=== PATIENT | female | born 1950 | race American Indian/Alaskan Native ===

== ENCOUNTER 2016-07-11 23:58 | Emergency (ER) | payer MEDICARE, MEDICAID ==
[2016-07-12 00:01] VITALS: BMI 36.9
--- NOTE | 2016-07-12 00:16 | ED PDOC ---
Arrival/HPI - General Chief Complaint: Upper Extremity Problem/Injury Time Seen by Provider: 07/12/16 00:09 Historian: Patient - History of Present Illness Narrative History of Present Illness (Text): 07/12/16 00:16 Analilia Parks is a 65 year old female, whose past medical history includes hypertension, asthma, and COPD, who presents to the ED complaining of left arm tingling. Patient states she has been experiencing elevated blood pressure recently and developed a tingling sensation radiating down her left arm with associated chest discomfort. Patient denies any fever, chills, shortness of breath, nausea, vomiting, diarrhea, urinary symptoms, back pain, neck pain, headache, dizziness, vision changes, focal neurological deficits, or any other complaints. Time/Duration: Other (yesterday) Symptom Onset: Gradual Symptom Course: Unchanged Activities at Onset: Rest, Light Context: Home Past Medical History - Provider Review Nursing Documentation Reviewed: Yes - Infectious Disease Hx of Infectious Diseases: None - Tetanus Immunization Tetanus Immunization: Unknown - Cardiac Hx Pacemaker: No - Pulmonary Hx Respiratory Disorders: Yes Hx Asthma: Yes Hx Chronic Obstructive Pulmonary Disease (COPD): Yes - Neurological Hx Paralysis: No - HEENT Hx HEENT Disorder: No Hx Difficulty Chewing: No - Renal Hx Renal Disorder: No - Endocrine/Metabolic Hx Endocrine Disorders: No - Hematological/Oncological Hx Blood Transfusion Reaction: No - Integumentary Hx Dermatological Disorder: No - Musculoskeletal/Rheumatological Hx Musculoskeletal Disorders: Yes - Gastrointestinal Hx Gastrointestinal Disorders: Yes Hx Diverticulitis: Yes Hx Gastritis: Yes Hx Gastroesophageal Reflux: Yes - Genitourinary/Gynecological Hx Genitourinary Disorders: No - Psychiatric Hx Psychophysiologic Disorder: No Hx Emotional Abuse: No Hx Physical Abuse: No Hx Substance Use: No - Past Surgical History Past Surgical History: No Previous - Surgical History Hx Dilation and Curettage: Yes Other/Comment: D&C - Anesthesia Hx Anesthesia Reactions: No Hx Malignant Hyperthermia: No - Suicidal Assessment Feels Threatened In Home Enviroment: No Family/Social History - Physician Review Nursing Documentation Reviewed: Yes Family/Social History: No Known Family HX Smoking Status: Former Smoker Hx Alcohol Use: No Hx Substance Use: No Hx Substance Use Treatment: No Allergies/Home Meds Allergies/Adverse Reactions: Allergies Penicillins Allergy (Verified 07/05/16 12:35) RASH peanuts Allergy (Uncoded 07/05/16 12:35) ITCHING Home Medications: Home Meds Medication Instructions Recorded Confirmed Budesonide/Formoterol Fumarate 11 puff IH BID 08/27/11 07/12/16 [Symbicort 80-4.5 Mcg Inhaler] Montelukast Sodium [Singulair] 10 mg PO HS 05/22/15 07/12/16 Olmesartan Medoxomil [Benicar] 40 mg PO DAILY 05/22/15 07/12/16 Albuterol Sulfate [Proair Hfa] 1 inh INH PRN PRN 02/14/16 07/12/16 Beclomethasone Dipropionate [Qvar] 2 inh INH BID 02/14/16 07/12/16 Review of Systems - Physician Review All systems were reviewed & negative as marked: Yes - Review of Systems Constitutional: Normal. absent: Fevers Eyes: Normal ENT: Normal Respiratory: Normal. absent: SOB, Cough Cardiovascular: Chest Pain, Other (+elevated blood pressure) Gastrointestinal: Normal. absent: Abdominal Pain, Diarrhea, Nausea, Vomiting Genitourinary Female: Normal. absent: Dysuria, Frequency, Hematuria, Urine Output Changes Musculoskeletal: Other (+tingling in left arm). absent: Back Pain, Neck Pain Skin: Normal. absent: Rash Neurological: Normal. absent: Headache, Dizziness Endocrine: Normal Hemo/Lymphatic: Normal Psychiatric: Normal Physical Exam Vital Signs Reviewed: Yes Vital Signs Temp Pulse Resp BP Pulse Ox 07/12/16 02:56 97.6 F 88 17 151/67 H 96 07/12/16 01:02 97.9 F 77 16 136/77 97 Temperature: Afebrile Blood Pressure: Normal Pulse: Regular Respiratory Rate: Normal Appearance: Positive for: Well-Appearing, Non-Toxic, Comfortable Pain Distress: None Mental Status: Positive for: Alert and Oriented X 3 - Systems Exam Head: Present: Atraumatic, Normocephalic Pupils: Present: PERRL Extroacular Muscles: Present: EOMI Conjunctiva: Present: Normal Mouth: Present: Moist Mucous Membranes Neck: Present: Normal Range of Motion Respiratory/Chest: Present: Clear to Auscultation, Good Air Exchange. No: Respiratory Distress, Accessory Muscle Use Cardiovascular: Present: Regular Rate and Rhythm, Normal S1, S2. No: Murmurs Abdomen: Present: Normal Bowel Sounds. No: Tenderness, Distention, Peritoneal Signs Back: Present: Normal Inspection Upper Extremity: Present: Normal Inspection. No: Cyanosis, Edema Lower Extremity: Present: Normal Inspection. No: Edema Neurological: Present: GCS=15, CN II-XII Intact, Speech Normal Skin: Present: Warm, Dry, Normal Color. No: Rashes Psychiatric: Present: Alert, Oriented x 3, Normal Insight, Normal Concentration Medical Decision Making ED Course and Treatment: 07/12/16 00:16 Impression: 65 year old female complaining of left arm tingling sensation, elevated blood pressure, and chest discomfort since yesterday. Plan: -- CT Head w/o contrast -- EKG -- Chest X-ray -- Labs, cardiac enzymes -- UA -- Reassess and disposition Prior Visits: Notes and results from previous visits were reviewed. Progress Notes: Reviewed EKG, NSR at [address]-segment elevations or depressions, no T-wave inversions, normal intervals. 07/12/16 01:53 Reviewed radiology, CT Head shows: 1. Nonspecific white matter changes. Acute infarction may be CT occult within first 24 hours. If a focal deficit persists, consider followup CT or MRI for further evaluation. 2. Incidental/non-acute findings are described above. 07/12/16 02:44 Reviewed labs, no acute change from baseline. Reviewed Chest X-ray, shows no active disease. 07/12/16 03:19 On re-evaluation, the patient feels better and is in no acute distress. I have discussed the results and plan with the patient, who expresses understanding. Patient in agreement with plan to discharged home. Patient is stable for discharge. Patient was instructed to follow up with physician/research assistant member/ clinic in 1-2 days or return if symptoms worsen or new concerning symptoms arise. - Lab Interpretations Lab Results: 07/12/16 00:24 07/12/16 00:24 Lab Results 07/12/16 02:35: Urine Color Yellow, Urine Appearance Clear, Urine pH 6.0, Ur Specific [place] >= 1.030, Urine Protein Negative, Urine Glucose (UA) Negative, Urine Ketones Negative, Urine Blood Negative, Urine Nitrate Negative, Urine Bilirubin Negative, Urine Urobilinogen 0.2, Ur Leukocyte Esterase Negative 07/12/16 00:24: WBC 10.0, RBC 4.39, Hgb 13.0, Hct 40.0, MCV 91.1, MCH 29.6, MCHC 32.5, RDW 13.3, Plt Count 376, MPV 10.1, Gran % 53.3, Lymph % (Auto) 39.0 H , [place] % (Auto) 4.4, Eos % (Auto) 2.9, Baso % (Auto) 0.4, Gran # 5.35, Lymph # 3.9 H, [place] # 0.4, Eos # 0.3, Baso # 0.04, Sodium 139, Potassium 3.9, Chloride 103, Carbon Dioxide 27, Anion Gap 13, BUN 12, Creatinine 0.6, Est GFR ( Amer) > 60, Est GFR (Non-Af Amer) > 60, Random Glucose 112 H, Calcium 9.5, Magnesium 1.8, Total Bilirubin 0.6, AST 39, ALT 21, Alkaline Phosphatase 126, Lactate Dehydrogenase 667, Total Creatine Kinase 150, Troponin I < 0.01, Total Protein 7.6, Albumin 4.1, Globulin 3.5, Albumin/Globulin Ratio 1.2 I have reviewed the lab results: Yes - RAD Interpretation Narrative RAD Interpretations (Text): CT Head shows: Brain: No intracranial hemorrhage. No mass. Minimal decreased attenuation within periventricular white matter. No definite edema. Ventricles: No hydrocephalus. Bones/joints: No acute fracture. Soft tissues: Unremarkable. Sinuses: No acute sinusitis. Mastoid air cells: No mastoid effusion. Orbits: Unremarkable as visualized. IMPRESSION: 1. Nonspecific white matter changes. Acute infarction may be CT occult within first 24 hours. If a focal deficit persists, consider followup CT or MRI for further evaluation. 2. Incidental/non-acute findings are described above. Radiology Orders: 07/12/16 00:16 HEAD W/O CONTRAST [CT] Stat CHEST ONE VIEW [RAD] Stat Switchboard And Control Room Operator: ED Physician, Radiologist - EKG Interpretation Interpreted by ED Physician: Yes Type: 12 lead EKG MIRA Risk Score for UA/NSTEMI - MIRA Risk Score Age > 64: NO 3 or more CAD Risk Factors: NO Known CAD (Stenosis greater than 50%): NO Aspirin use in past 7 days: NO Severe Angina: NO EKG ST changes greater than 0.5mm: NO Positive Cardiac Marker: NO MIRA Score: 0 % risk at 14 days of: all cause mortality, new or recurrent IN, or severe recurrent ischemia requiring urgen revascularization: 5% - Scribe Statement The provider has reviewed the documentation as recorded by the Sheila Walter Provider Attestation: All medical record entries made by the Maureenibjaelyn were at my direction and personally dictated by me. I have reviewed the chart and agree that the record accurately reflects my personal performance of the history, physical exam, medical decision making, and the department course for this patient. I have also personally directed, reviewed, and agree with the discharge instructions and disposition. Disposition/Present on Arrival - Present on Arrival History of DVT/PE: No History of Uncontrolled Diabetes: No Urinary Catheter: No History of Decub. Ulcer: No History Surgical Site Infection Following: None - Disposition Diagnosis: Chest pain Disposition: HOME/ ROUTINE Patient Problems: Current Active Problems Problem Status Diagnosed Chest pain Acute Discharge Instructions (ExitCare): Chest Pain (ED) Referrals: Meet Gaviria MD [Primary Care Provider] - Follow up with primary
[2016-07-12 00:32] LABS: ADD MANUAL DIFF? NO
[2016-07-12 00:46] LABS: ALB/GLOB RATIO 1.2 (1.1-1.8); ALKALINE PHOSPHATASE 126 U/L (38-133); ALT/SGPT 21 U/L (7-56); AST/SGOT 39 U/L (15-39); BILIRUBIN,TOTAL 0.6 mg/dL (0.2-1.3); BLOOD UREA NITROGEN 12 mg/dL (7-21); CALCIUM 9.5 mg/dL (8.4-10.5); CARBON DIOXIDE 27 mmol/L (21-33); CHLORIDE 103 mmol/L (98-107); GFR AFRICAN-AMERICAN > 60; GLUCOSE,RANDOM 112 mg/dL (70-110); MAGNESIUM 1.8 mg/dL (1.7-2.2); POTASSIUM 3.9 mmol/L (3.6-5.0); SODIUM 139 mmol/L (132-148); TOTAL PROTEIN 7.6 g/dL (5.8-8.3)
[2016-07-12 00:48] LABS: BASO # 0.04 K/mm3 (0.0-2.0); BASO % 0.4 % (0.0-3.0); EOS # 0.3 (0.0-0.7); EOS % 2.9 % (1.5-5.0); GRAN # 5.35 (1.4-6.5); GRAN % 53.3 % (50.0-68.0); LYMPH # 3.9 (1.2-3.4); MEAN CELL VOLUME 91.1 fL (80.0-105.0); MEAN CORPUSCULAR HEMOGLOBIN 29.6 pg (25.0-35.0); MEAN CORPUSCULAR HGB CONC 32.5 g/dl (31.0-37.0); MEAN PLATELET VOLUME 10.1 fl (7.0-11.0); MONO # 0.4 (0.1-0.6); MONO % 4.4 % (1.0-6.0); PLATELET COUNT 376 10^3/uL (120.0-450.0); RED CELL DISTRIBUTION WIDTH 13.3 % (11.5-14.5)
[2016-07-12 00:58] LABS: TROPONIN I < 0.01 ng/mL
--- NOTE | 2016-07-12 01:05 | CT ---
EXAM: CT Head Without Intravenous Contrast. CLINICAL HISTORY: 65 years old, female; Signs and symptoms; Other: HTN TECHNIQUE: Axial computed tomography images of the head/brain without intravenous contrast. This CT exam was performed using one or more of the following dose reduction techniques: automated exposure control, adjustment of the mA and/or kV according to patient size, and/or use of iterative reconstruction technique. COMPARISON: No relevant prior studies available. FINDINGS: Brain: No intracranial hemorrhage. No mass. Minimal decreased attenuation within periventricular white matter. No definite edema. Ventricles: No hydrocephalus. Bones/joints: No acute fracture. Soft tissues: Unremarkable. Sinuses: No acute sinusitis. Mastoid air cells: No mastoid effusion. Orbits: Unremarkable as visualized. IMPRESSION: 1. Nonspecific white matter changes. Acute infarction may be CT occult within first 24 hours. If a focal deficit persists, consider followup CT or MRI for further evaluation. 2. Incidental/non-acute findings are described above.
[2016-07-12 02:57] VITALS: BP 151/67; PULSE 88; RESP 17; TEMP 97.6; O2SAT 96
[2016-07-12 02:59] LABS: URINE BILIRUBIN NEGATIVE (NEGATIVE); URINE BLOOD NEGATIVE (NEGATIVE); URINE GLUCOSE (UA) NEGATIVE (NEGATIVE); URINE KETONE NEGATIVE (NEGATIVE); URINE LEUKOCYTE ESTERASE NEGATIVE Leu/uL (NEGATIVE); URINE PROTEIN NEGATIVE mg/dL (<30 mg/dL); URINE UROBILINOGEN 0.2 E.U./dL (<1 E.U./dL)
[2016-07-12 03:07] LABS: URINE APPEARANCE CLEAR (CLEAR); URINE COLOR YELLOW (YELLOW)
--- NOTE | 2016-07-12 09:10 | RAD ---
HISTORY: pain COMPARISON: Chest x-ray performed 06/16/15 TECHNIQUE: Chest, one view. FINDINGS: Examination limited by habitus. LUNGS: No focal consolidation. Please note that chest x-ray has limited sensitivity for the detection of pulmonary masses. PLEURA: No significant pleural effusion identified. No definite pneumothorax . CARDIOVASCULAR: Heart size appears borderline enlarged. Ectatic aorta. OSSEOUS STRUCTURES: Degenerative changes. VISUALIZED UPPER ABDOMEN: Unremarkable. OTHER FINDINGS: None. IMPRESSION: No focal consolidation, significant pleural effusion, or definite pneumothorax identified.
--- NOTE | 2016-07-12 10:04 | CARD ---
APPROVED REPORT EKG Measurement Heart [id number] <Conclusion> Normal sinus rhythm Normal ECG No change
== END 2016-07-12 03:25 | disposition home or self-care (01) ==
LOC: ED 23:58
DX: R07.9 Chest pain, unspecified (principal); I10 Essential (primary) hypertension

== ENCOUNTER 2016-07-15 08:12 | Day surgery (SDC) | payer MEDICARE, MEDICAID ==
[2016-07-07 12:55] VITALS: BMI 36.9
[2016-07-15] MEDS ORDERED: Propofol 10 mg/ml Inj (20 ML) ONE (08:54)
[2016-07-15 11:24] VITALS: BP 141/69; PULSE 79; RESP 18; TEMP 97.7; O2SAT 98
== END 2016-07-15 11:51 | disposition home or self-care (01) ==
LOC: ENDO 08:12
PROVIDERS: ATTEND Specialist
DX: D12.3 Benign neoplasm of transverse colon (principal); K57.30 Diverticulosis of large intestine without perforation or abscess without bleeding; K64.8 Other hemorrhoids; K59.00 Constipation, unspecified
CPT/HCPCS: 45385; 88305; J2001; J2704; J7040

== ENCOUNTER 2016-09-14 09:42 | Observation (INO) | payer MEDICARE, MEDICAID ==
[2016-09-14 09:49] VITALS: BMI 35.5
[2016-09-14 10:16] VITALS: TEMP 98.4
[2016-09-14] MEDS ORDERED: Albuterol-Ipratrop 3 mg / 0.5 (3 ml) UD IH STA ×2 (10:24→11:54)
[2016-09-14 10:30] LABS: ADD MANUAL DIFF? NO
--- NOTE | 2016-09-14 10:30 | ED PDOC ---
Arrival/HPI - General Chief Complaint: Shortness Of Breath Time Seen by Provider: 09/14/16 09:46 Historian: Patient - History of Present Illness Narrative History of Present Illness (Text): 09/14/16 10:33 A 65 year old female, whose past medical history includes hypertension and asthma, presents to the emergency department complaining of two days duration of shortness of breath and chest pain. Patient notes developed left sided chest pain and describes it as pressure. Patient is unsure if symptoms are related to her asthma as she also reports some wheezing, non-productive cough, and needing her inhaler more frequently. She reports the pain is worse with inspiration. She reports that she does not think it is her heart because she can exercise for 30 minutes without any worsening of the pain. Patient denies weakness, nausea, vomiting, diaphoresis or any other complaints at this time. PMD: Dr. Gaviria 09/14/16 17:43 Time/Duration: Other (2 days) Symptom Onset: Sudden Symptom Course: Unchanged Quality: Pressure Activities at Onset: Other (with inspiration) Context: Home Past Medical History - Provider Review Nursing Documentation Reviewed: Yes - Infectious Disease Hx of Infectious Diseases: None - Tetanus Immunization Tetanus Immunization: Unknown - Cardiac Hx Hypertension: Yes Hx Pacemaker: No - Pulmonary Hx Respiratory Disorders: Yes Hx Asthma: Yes Hx Chronic Obstructive Pulmonary Disease (COPD): Yes - Neurological Hx Paralysis: No - HEENT Hx HEENT Disorder: No Hx Difficulty Chewing: No - Renal Hx Renal Disorder: No - Endocrine/Metabolic Hx Endocrine Disorders: No - Hematological/Oncological Hx Blood Transfusion Reaction: No - Integumentary Hx Dermatological Disorder: No - Musculoskeletal/Rheumatological Hx Musculoskeletal Disorders: Yes - Gastrointestinal Hx Gastrointestinal Disorders: Yes Hx Diverticulitis: Yes Hx Gastritis: Yes Hx Gastroesophageal Reflux: Yes - Genitourinary/Gynecological Hx Genitourinary Disorders: No - Psychiatric Hx Psychophysiologic Disorder: No Hx Emotional Abuse: No Hx Physical Abuse: No Hx Substance Use: No - Past Surgical History Past Surgical History: No Previous - Surgical History Hx Dilation and Curettage: Yes Other/Comment: Colonoscopy - Anesthesia Hx Anesthesia Reactions: No Hx Malignant Hyperthermia: No - Suicidal Assessment Feels Threatened In Home Enviroment: No Family/Social History - Physician Review Nursing Documentation Reviewed: Yes Family/Social History: No Known Family HX Smoking Status: Former Smoker Hx Alcohol Use: No Hx Substance Use: No Hx Substance Use Treatment: No Allergies/Home Meds Allergies/Adverse Reactions: Allergies Penicillins Allergy (Verified 09/14/16 09:49) RASH peanuts Allergy (Uncoded 09/14/16 09:49) ITCHING Home Medications: Home Meds Medication Instructions Recorded Confirmed Budesonide/Formoterol Fumarate 2 puff IH BID 08/27/11 09/14/16 [Symbicort 80-4.5 Mcg Inhaler] Montelukast Sodium [Singulair] 10 mg PO HS 05/22/15 09/14/16 Beclomethasone Dipropionate [Qvar] 2 inh INH BID 02/14/16 09/14/16 Albuterol HFA [Ventolin HFA 90 0.09 mg IH DAILY 09/14/16 09/14/16 mcg/actuation (8 g)] amLODIPine [Norvasc] 5 mg PO DAILY 09/14/16 09/14/16 Review of Systems - Review of Systems Constitutional: absent: Other (weakness) Respiratory: SOB, Cough (non productive) Cardiovascular: Chest Pain Gastrointestinal: absent: Nausea, Vomiting Skin: absent: Other (edema) Neurological: absent: Headache Endocrine: absent: Diaphoresis Physical Exam Vital Signs Reviewed: Yes Vital Signs Temp Pulse Resp BP Pulse Ox 09/14/16 17:34 75 18 132/63 97 09/14/16 15:15 79 18 135/65 97 09/14/16 14:51 82 18 137/62 97 09/14/16 13:00 83 19 147/69 99 09/14/16 11:37 77 17 144/65 99 09/14/16 09:43 98.4 F 91 H 18 151/80 H 100 Temperature: Afebrile Blood Pressure: Hypertensive Pulse: Regular Respiratory Rate: Normal Appearance: Positive for: Well-Appearing, Non-Toxic, Comfortable Pain Distress: None Mental Status: Positive for: Alert and Oriented X 3 - Systems Exam Head: Present: Atraumatic, Normocephalic Pupils: Present: PERRL Extroacular Muscles: Present: EOMI Conjunctiva: Present: Normal Mouth: Present: Moist Mucous Membranes Neck: Present: Normal Range of Motion Respiratory/Chest: Present: Clear to Auscultation, Good Air Exchange. No: Respiratory Distress, Accessory Muscle Use Cardiovascular: Present: Regular Rate and Rhythm, Normal S1, S2. No: Murmurs Abdomen: Present: Normal Bowel Sounds. No: Tenderness, Distention, Peritoneal Signs Back: Present: Normal Inspection Upper Extremity: Present: Normal Inspection. No: Cyanosis, Edema Lower Extremity: Present: Normal Inspection. No: Edema Neurological: Present: GCS=15, CN II-XII Intact, Speech Normal Skin: Present: Warm, Dry, Normal Color. No: Rashes Psychiatric: Present: Alert, Oriented x 3, Normal Insight, Normal Concentration Medical Decision Making ED Course and Treatment: 09/14/16 10:27 Impression: Patient is presenting with shortness of breath Differential Diagnosis included but are not limited to: acute coronary syndrome vs. pulmonary embolism vs. asthma Plan: -- chest xray -- labs -- Duoneb -- Reassess and disposition Prior Visits: Notes and results from previous visits were reviewed. Patient last reported to the emergency department on 07/11/16 for evaluation of left arm tingling sensation. Patient was advised to follow up with PMD and discharged. Progress Note: Patient last EKG shows normal sinus rhythm at 96 BPM, no ST changes. 09/14/16 11:10 Cxray negative 09/14/16 11:[address] Gaviria. He agrees that presentation does not seem consistent with cardiac. However, due to her risk factors, he recommends second trop and dc home with follow-up in his office within 2 days (wednesday) 09/14/16 12:54 Patient was placed in ED observation and continuously monitored. Additional duoneb ordered. 09/14/16 14:54 Patient resting comfortably 09/14/16 16:45 Repeat ekg shows NSR at 73bpm with normal intervals and no ST changes 09/14/16 17:19 Repeat trop negative. Patient reports that she feels much better and wants to go home. She was offered prednisone. However, she reports she has prednisone at home and "does not need it." She reports that she knows "when to take it" and this asthma exacerbation is not severe enough. She reports that she will follow-up with PMD and return immediately with any worsening symptoms. - Lab Interpretations Lab Results: 09/14/16 09:50 09/14/16 10:30 Lab Results 09/14/16 10:30: Sodium 142, Potassium 3.7, Chloride 106, Carbon Dioxide 29, Anion Gap 11, BUN 16, Creatinine 0.7, Est GFR ( Amer) > 60, Est GFR (Non- Af Amer) > 60, Random Glucose 82, Calcium 9.5, Total Bilirubin 0.5, AST 29, ALT 38, Alkaline Phosphatase 107, Lactate Dehydrogenase 684, Total Creatine Kinase 188, Troponin I < 0.01, NT-Pro-B Natriuret Pep 17.3, Total Protein 7.2, Albumin 4.0, Globulin 3.3, Albumin/Globulin Ratio 1.2 09/14/16 09:50: D-Dimer, Quantitative 0.48 09/14/16 09:50: WBC 12.4 H D, RBC 4.44, Hgb 13.2, Hct 39.7, MCV 89.4, MCH 29.7, MCHC 33.2, RDW 13.6, Plt Count 366, MPV 9.9, Gran % 67.6, Lymph % (Auto) 26.2, [place] % (Auto) 6.0, Eos % (Auto) 0.1 L, Baso % (Auto) 0.1, Gran # 8.40 H, Lymph # 3.3, [place] # 0.8 H, Eos # 0.0, Baso # 0.01 I have reviewed the lab results: Yes - RAD Interpretation Radiology Orders: 09/14/16 10:24 CHEST PORTABLE [RAD] Stat - Medication Orders Current Medication Orders: Discontinued Medications Albuterol/Ipratropium (Duoneb 3 Mg/0.5 Mg (3 Ml) Ud) 3 ml IH STAT STA Stop: 09/14/16 10:25 Last Admin: 09/14/16 10:32 Dose: 3 ml Albuterol/Ipratropium (Duoneb 3 Mg/0.5 Mg (3 Ml) Ud) 3 ml IH STAT STA Stop: 09/14/16 11:55 Last Admin: 09/14/16 12:00 Dose: 3 ml Prednisone (Prednisone Tab) 60 mg PO STAT STA Stop: 09/14/16 17:16 Last Admin: 09/14/16 17:15 Dose: Not Given Non-Admin Reason: Patient Refused Comments: MD dumont ED OBSERVATION Discharge: Yes Date of observation admission: 09/14/16 Time of observation admission: 10:11 - Observation admission statement Patient is being placed in observation because:: cardiac monitoring, asthma excaerbation, reevaluation of chest pain and monitoring of respirations - Goals of Observation Goals of observation are:: serial troponins and monitoring of asthma, with additional nebulizer treatments as needed - Scribe Statement The provider has reviewed the documentation as recorded by the Scribe Douglas Dolan All medical record entries made by the Scribe were at my direction and personally dictated by me. I have reviewed the chart and agree that the record accurately reflects my personal performance of the history, physical exam, medical decision making, and the department course for this patient. I have also personally directed, reviewed, and agree with the discharge instructions and disposition. Disposition/Present on Arrival - Present on Arrival Any Indicators Present on Arrival: No History of DVT/PE: No History of Uncontrolled Diabetes: No Urinary Catheter: No History of Decub. Ulcer: No History Surgical Site Infection Following: None - Disposition Have Diagnosis and Disposition been Completed?: Yes Diagnosis: Asthma exacerbation Disposition: HOME/ ROUTINE Disposition Time: 11:12 Patient Plan: Discharge Patient Problems: Current Active Problems Problem Status Onset Asthma exacerbation Acute Condition: GOOD
[2016-09-14 10:32] LABS: BASO # 0.01 K/mm3 (0.0-2.0); BASO % 0.1 % (0.0-3.0); EOS % 0.1 % (1.5-5.0); GRAN % 67.6 % (50.0-68.0); HEMATOCRIT 39.7 % (36.0-48.0); LYMPH # 3.3 (1.2-3.4); LYMPH % 26.2 % (22.0-35.0); MEAN CELL VOLUME 89.4 fL (80.0-105.0); MEAN CORPUSCULAR HEMOGLOBIN 29.7 pg (25.0-35.0); MEAN CORPUSCULAR HGB CONC 33.2 g/dl (31.0-37.0); MEAN PLATELET VOLUME 9.9 fl (7.0-11.0); MONO # 0.8 (0.1-0.6); PLATELET COUNT 366 10^3/uL (120.0-450.0); RED CELL DISTRIBUTION WIDTH 13.6 % (11.5-14.5); WHITE BLOOD COUNT 12.4 10^3/ul (4.5-11.0)
[2016-09-14 11:08] LABS: ALB/GLOB RATIO 1.2 (1.1-1.8); ALKALINE PHOSPHATASE 107 U/L (38-133); ALT/SGPT 38 U/L (7-56); AST/SGOT 29 U/L (15-39); BILIRUBIN,TOTAL 0.5 mg/dL (0.2-1.3); BLOOD UREA NITROGEN 16 mg/dL (7-21); CALCIUM 9.5 mg/dL (8.4-10.5); CARBON DIOXIDE 29 mmol/L (21-33); CHLORIDE 106 mmol/L (98-107); GFR AFRICAN-AMERICAN > 60; GLUCOSE,RANDOM 82 mg/dL (70-110); POTASSIUM 3.7 mmol/L (3.6-5.0); SODIUM 142 mmol/L (132-148); TOTAL PROTEIN 7.2 g/dL (5.8-8.3)
--- NOTE | 2016-09-14 11:08 | RAD ---
HISTORY: chest pain COMPARISON: 07/12/2016 FINDINGS: LUNGS: No active pulmonary disease. PLEURA: No significant pleural effusion identified, no pneumothorax apparent. CARDIOVASCULAR: Normal. OSSEOUS STRUCTURES: No significant abnormalities. VISUALIZED UPPER ABDOMEN: Normal. OTHER FINDINGS: None. IMPRESSION: No active disease.
[2016-09-14 11:21] LABS: TROPONIN I < 0.01 ng/mL
[2016-09-14 14:52] VITALS: RESP 18; O2SAT 97
[2016-09-14 16:58] LABS: TROPONIN I < 0.01 ng/mL
[2016-09-14 17:34] VITALS: BP 132/63; PULSE 75
--- NOTE | 2016-09-14 20:26 | CARD ---
APPROVED REPORT EKG Measurement Heart [id number] <Conclusion> Normal sinus rhythm Normal ECG
--- NOTE | 2016-09-15 12:46 | CARD ---
APPROVED REPORT EKG Measurement Heart [id number] <Conclusion> Normal sinus rhythm Normal ECG
== END 2016-09-14 17:13 | disposition home or self-care (01) ==
LOC: ED 09:42 → EROBSV 11:54
PROVIDERS: ADMIT Emergency Medicine; ATTEND Emergency Medicine
DX: J45.901 Unspecified asthma with (acute) exacerbation (principal); I10 Essential (primary) hypertension; Z87.891 Personal history of nicotine dependence
CPT/HCPCS: 71010; 80053; 82550; 83615; 83880; 84484; 85025; 85378; 93005; 99285; G0378

== ENCOUNTER 2016-10-05 06:03 | Emergency (ER) | payer MEDICARE, MEDICAID ==
[2016-10-05 06:09] VITALS: BMI 36.6
--- NOTE | 2016-10-05 06:42 | ED PDOC ---
Arrival/HPI - General Chief Complaint: Chest Pain Time Seen by Provider: 10/05/16 06:10 - History of Present Illness Narrative History of Present Illness (Text): 10/05/16 06:39 65 yo female, hx of htn, asthma, presents with cp. as per pt, started 3 days ago , w/o inciting factor. as per pt, described as a "dull pain". no fevers, no sob , cough, n/v/d, urinary changes, leg swelling, recent travel, surgery, no wheezing Past Medical History - Provider Review Nursing Documentation Reviewed: Yes - Infectious Disease Hx of Infectious Diseases: None - Tetanus Immunization Tetanus Immunization: Unknown - Cardiac Hx Hypertension: Yes Hx Pacemaker: No Other/Comment: leaky valve - Pulmonary Hx Respiratory Disorders: Yes Hx Asthma: Yes Hx Chronic Obstructive Pulmonary Disease (COPD): Yes - Neurological Hx Paralysis: No - HEENT Hx HEENT Disorder: No Hx Difficulty Chewing: No - Renal Hx Renal Disorder: No - Endocrine/Metabolic Hx Endocrine Disorders: No - Hematological/Oncological Hx Blood Transfusion Reaction: No - Integumentary Hx Dermatological Disorder: No - Musculoskeletal/Rheumatological Hx Musculoskeletal Disorders: Yes - Gastrointestinal Hx Gastrointestinal Disorders: Yes Hx Diverticulitis: Yes Hx Gastritis: Yes Hx Gastroesophageal Reflux: Yes - Genitourinary/Gynecological Hx Genitourinary Disorders: No - Psychiatric Hx Psychophysiologic Disorder: No Hx Emotional Abuse: No Hx Physical Abuse: No Hx Substance Use: No - Past Surgical History Past Surgical History: No Previous - Surgical History Hx Dilation and Curettage: Yes Other/Comment: Colonoscopy - Anesthesia Hx Anesthesia: Yes Hx Anesthesia Reactions: No Hx Malignant Hyperthermia: No - Suicidal Assessment Feels Threatened In Home Enviroment: No Family/Social History - Physician Review Nursing Documentation Reviewed: Yes Family/Social History: Unknown Family HX Smoking Status: Former Smoker Hx Alcohol Use: No Hx Substance Use: No Hx Substance Use Treatment: No Allergies/Home Meds Allergies/Adverse Reactions: Allergies peanut Allergy (Verified 10/05/16 06:09) RASH Penicillins Allergy (Verified 10/05/16 06:09) RASH peanuts Allergy (Uncoded 09/14/16 09:49) ITCHING Home Medications: Home Meds Medication Instructions Recorded Confirmed Budesonide/Formoterol Fumarate 2 puff IH BID 08/27/11 10/05/16 [Symbicort 80-4.5 Mcg Inhaler] Montelukast Sodium [Singulair] 10 mg PO HS 05/22/15 10/05/16 Beclomethasone Dipropionate [Qvar] 2 inh INH BID 02/14/16 10/05/16 Albuterol HFA [Ventolin HFA 90 0.09 mg IH DAILY 09/14/16 10/05/16 mcg/actuation (8 g)] amLODIPine [Norvasc] 5 mg PO DAILY 09/14/16 10/05/16 Review of Systems - Review of Systems Constitutional: Normal Eyes: Normal ENT: Normal Respiratory: Normal Cardiovascular: Chest Pain Gastrointestinal: Normal Genitourinary Female: Normal Musculoskeletal: Normal Skin: Normal Neurological: Normal Endocrine: Normal Hemo/Lymphatic: Normal Psychiatric: Normal Physical Exam Vital Signs Temp Pulse Resp BP Pulse Ox 10/05/16 06:10 98.5 F 85 20 123/61 98 Temperature: Afebrile Blood Pressure: Normal Pulse: Regular Respiratory Rate: Normal Appearance: Positive for: Well-Appearing, Non-Toxic, Comfortable Pain Distress: None Mental Status: Positive for: Alert and Oriented X 3 - Systems Exam Head: Present: Atraumatic, Normocephalic Pupils: Present: PERRL Extroacular Muscles: Present: EOMI Conjunctiva: Present: Normal Mouth: Present: Moist Mucous Membranes Neck: Present: Normal Range of Motion Respiratory/Chest: Present: Clear to Auscultation, Good Air Exchange. No: Respiratory Distress, Accessory Muscle Use Cardiovascular: Present: Regular Rate and Rhythm, Normal S1, S2. No: Murmurs Abdomen: Present: Normal Bowel Sounds. No: Tenderness, Distention, Peritoneal Signs Back: Present: Normal Inspection Upper Extremity: Present: Normal Inspection. No: Cyanosis, Edema, Swelling Lower Extremity: Present: Normal Inspection. No: Edema, Tenderness, Swelling Neurological: Present: GCS=15, CN II-XII Intact, Speech Normal Skin: Present: Warm, Dry, Normal Color. No: Rashes Psychiatric: Present: Alert, Oriented x 3, Normal Insight, Normal Concentration Medical Decision Making ED Course and Treatment: 10/05/16 06:41 cp r/o acs - labs imaging pending ekg nsr [address] t wave changes normal intervals - RAD Interpretation Radiology Orders: 10/05/16 06:39 CHEST PORTABLE [RAD] Stat Disposition/Present on Arrival - Present on Arrival History of DVT/PE: No History of Uncontrolled Diabetes: No Urinary Catheter: No History of Decub. Ulcer: No History Surgical Site Infection Following: None - Disposition
--- NOTE | 2016-10-05 07:25 | ED PDOC ---
Physical Exam Vital Signs Reviewed: Yes Vital Signs Temp Pulse Resp BP Pulse Ox 10/05/16 09:54 88 18 142/75 99 10/05/16 07:33 82 18 132/48 L 100 10/05/16 06:10 98.5 F 85 20 123/61 98 Temperature: Afebrile Blood Pressure: Normal Pulse: Regular Respiratory Rate: Normal Medical Decision Making ED Course and Treatment: 10/05/16 07:24 Patient endorsed to me by Dr. Douglas. Pending chest xray and labs. Patient presented with chest pain. She has expressed wishes to be discharged home. 10/05/16 07:41 On re-evaluation, patient reports non-exertional chest pain for the past few days with associated shortness of breath that feels different from prior asthma exacerbations. Exam showed lungs clear to auscultation bilaterally, trace pitting edema bilaterally, no asymmetry or tenderness, otherwise unremarkable. 10/05/16 07:52 EKG shows NSR at [address]-segment elevations, normal intervals. Interpreted by me. 10/05/16 08:58 Patient seen and examined by PMD Dr. Misha Parks, who request Dr. Melo for a cardiac consult for disposition. Report Date : 10/05/2016 09:50:52 Procedure: Chest xray Dictator : Gregor Salas MD IMPRESSION: No active disease. 10/05/16 11:23 seen in the ER by Dr. Melo, states to dc home, and f/u outpatient has been arranged pt in no distress and denies any complaints at this time states she feels comfortable being dc'd home Pt states she understands to return to the ER right away for new or worsening symptoms or for inability to f/u with PMD or specialist as instructed. Patient states that she fully agrees with and understands discharge instructions. States that she agrees with the plan and disposition. Verbalized and repeated discharge instructions and plan. I have given the patient opportunity to ask any additional questions. - Lab Interpretations Lab Results: 10/05/16 07:15 10/05/16 07:15 Lab Results 10/05/16 08:30: Urine Color Yellow, Urine Appearance Clear, Urine pH 6.0, Ur Specific [place] 1.010, Urine Protein Negative, Urine Glucose (UA) Negative, Urine Ketones Negative, Urine Blood Negative, Urine Nitrate Negative, Urine Bilirubin Negative, Urine Urobilinogen 0.2, Ur Leukocyte Esterase Trace H, Urine RBC 0 - 2, Urine WBC 2 - 5, Ur Epithelial Cells 4 - 5, Urine Bacteria Few , Urine Other Fiber 10/05/16 07:15: Sodium 140, Potassium 3.6, Chloride 105, Carbon Dioxide 29, Anion Gap 10, BUN 12, Creatinine 0.6, Est GFR ( Amer) > 60, Est GFR (Non- Af Amer) > 60, Random Glucose 88, Calcium 9.5, Magnesium 1.8, Total Bilirubin 0.4, AST 28, ALT 44, Alkaline Phosphatase 111, Lactate Dehydrogenase 503, Total Creatine Kinase 131, Troponin I < 0.01, Total Protein 6.8, Albumin 3.9, Globulin 2.9, Albumin/Globulin Ratio 1.3 10/05/16 07:15: PT 10.9, INR 1.01, APTT 26.8 10/05/16 07:15: WBC 8.5 D, RBC 4.10, Hgb 12.3, Hct 37.3, MCV 91.0, MCH 30.0, MCHC 33.0, RDW 13.9, Plt Count 308, MPV 9.5, Gran % 51.0, Lymph % (Auto) 40.3 H , [place] % (Auto) 5.9, Eos % (Auto) 2.6, Baso % (Auto) 0.2, Gran # 4.31, Lymph # 3.4, [place] # 0.5, Eos # 0.2, Baso # 0.02 - RAD Interpretation Radiology Orders: 10/05/16 06:39 CHEST PORTABLE [RAD] Stat - Medication Orders Current Medication Orders: Discontinued Medications Aspirin (Aspirin) 325 mg PO STAT STA Stop: 10/05/16 06:42 Last Admin: 10/05/16 07:23 Dose: 325 mg Nitroglycerin (Nitrostat Sl Tab) 0.3 mg SL STAT STA Stop: 10/05/16 07:48 Last Admin: 10/05/16 07:50 Dose: Not Given Non-Admin Reason: Patient Refused Disposition/Present on Arrival - Present on Arrival Any Indicators Present on Arrival: No History of DVT/PE: No History of Uncontrolled Diabetes: No Urinary Catheter: No History of Decub. Ulcer: No History Surgical Site Infection Following: None - Disposition Have Diagnosis and Disposition been Completed?: Yes Diagnosis: Chest pain Disposition: HOME/ ROUTINE Disposition Time: 11:27 Patient Plan: Discharge Condition: GOOD Discharge Instructions (ExitCare): Chest Pain (ED) Additional Instructions: PLEASE RETURN TO THE EMERGENCY DEPARTMENT FOR NEW OR WORSENING SYMPTOMS. RETURN RIGHT AWAY IF YOU CANNOT FOLLOW UP WITH YOUR PRIMARY CARE DOCTOR, CLINIC, OR SPECIALIST IN 1-2 DAYS. Referrals: Meet Gaviria MD [Primary Care Provider] - Follow up with primary Tate Melo MD [Staff Provider] - Follow up with primary Forms: WORK NOTE
[2016-10-05 07:35] VITALS: RESP 18
[2016-10-05 07:36] LABS: ADD MANUAL DIFF? NO
[2016-10-05 07:46] LABS: BASO # 0.02 K/mm3 (0.0-2.0); BASO % 0.2 % (0.0-3.0); EOS # 0.2 (0.0-0.7); EOS % 2.6 % (1.5-5.0); GRAN # 4.31 (1.4-6.5); HEMATOCRIT 37.3 % (36.0-48.0); LYMPH # 3.4 (1.2-3.4); LYMPH % 40.3 % (22.0-35.0); MEAN PLATELET VOLUME 9.5 fl (7.0-11.0); MONO # 0.5 (0.1-0.6); MONO % 5.9 % (1.0-6.0); PLATELET COUNT 308 10^3/uL (120.0-450.0); RED CELL DISTRIBUTION WIDTH 13.9 % (11.5-14.5); WHITE BLOOD COUNT 8.5 10^3/ul (4.5-11.0)
[2016-10-05 07:53] LABS: INR 1.01 (0.93-1.08); PARTIAL THROMBOPLASTIN TIME 26.8 Seconds (23.7-30.8)
[2016-10-05 07:57] LABS: ALB/GLOB RATIO 1.3 (1.1-1.8); ALKALINE PHOSPHATASE 111 U/L (38-133); ALT/SGPT 44 U/L (7-56); AST/SGOT 28 U/L (15-39); BILIRUBIN,TOTAL 0.4 mg/dL (0.2-1.3); BLOOD UREA NITROGEN 12 mg/dL (7-21); CALCIUM 9.5 mg/dL (8.4-10.5); CARBON DIOXIDE 29 mmol/L (21-33); CHLORIDE 105 mmol/L (98-107); GFR AFRICAN-AMERICAN > 60; GLUCOSE,RANDOM 88 mg/dL (70-110); MAGNESIUM 1.8 mg/dL (1.7-2.2); POTASSIUM 3.6 mmol/L (3.6-5.0); SODIUM 140 mmol/L (132-148); TOTAL PROTEIN 6.8 g/dL (5.8-8.3)
[2016-10-05 08:08] LABS: TROPONIN I < 0.01 ng/mL
[2016-10-05 09:05] LABS: URINE BILIRUBIN NEGATIVE (NEGATIVE); URINE BLOOD NEGATIVE (NEGATIVE); URINE GLUCOSE (UA) NEGATIVE (NEGATIVE); URINE KETONE NEGATIVE (NEGATIVE); URINE LEUKOCYTE ESTERASE TRACE Leu/uL (NEGATIVE); URINE PROTEIN NEGATIVE mg/dL (<30 mg/dL); URINE UROBILINOGEN 0.2 E.U./dL (<1 E.U./dL)
[2016-10-05 09:11] LABS: URINE APPEARANCE CLEAR (CLEAR); URINE COLOR YELLOW (YELLOW)
[2016-10-05 09:26] LABS: URINE BACTERIA FEW (NEG); URINE RBC 0 - 2 /hpf (0-2)
--- NOTE | 2016-10-05 09:52 | RAD ---
HISTORY: cp COMPARISON: 09/14/2016 FINDINGS: LUNGS: No active pulmonary disease. PLEURA: No significant pleural effusion identified, no pneumothorax apparent. CARDIOVASCULAR: Normal. OSSEOUS STRUCTURES: No significant abnormalities. VISUALIZED UPPER ABDOMEN: Normal. OTHER FINDINGS: None. IMPRESSION: No active disease.
[2016-10-05 11:55] VITALS: BP 132/77; PULSE 80; TEMP 98; O2SAT 98
--- NOTE | 2016-10-05 15:05 | CARD ---
APPROVED REPORT EKG Measurement Heart [id number] <Conclusion> Normal sinus rhythm Normal ECG
--- NOTE | 2016-10-05 16:24 | CON ---
DATE: 10/05/2016 HISTORY OF PRESENT ILLNESS: The patient is a 65-year-old woman who presented with a fluttering of he r chest. The patient is free of cardiac disease in the past. She suffers from hypertension, obesity, and has a history of asthma, in which she is on multiple medi cations including bronchodilators and steroids. Negative diabetes mellitus. SOCIAL HISTORY: Negative smoker. The patient has recently lost 40 pounds, but remains overweight. REVIEW OF SYSTEMS: A 14-point is reviewed in detail. No cardiac symptomatology is noted. PHYSICAL EXAMINATION: VITAL SIGNS: Blood pressure is 142/75, heart rate is in the 80s, normal sinus rhythm. NECK: Negative JVD. LUNGS: Without rales. HEART: Revealed S1, S2. EXTREMITIES: Without edema. EKG shows normal sinus rhythm with no acute changes. LABORATORIES: Hemoglobin is 12.3. Chemistries: Troponin is negative x 1. IMPRESSION: 1. Palpitations. 2. Atypical chest pain. 3. Asthma. 4. Hypertension, which is exacerbated by her steroids. 5. Obesity. Given these findings, from a cardiac perspective, the patient can be discharged. We will arrange for an outpatient stress test and echocardiogram as well as outpatient followup. Tate Melo MD cc: [id number] TT: 10/05/2016 16:24:34 Confirmation # [id number] Dictation # [id number]
--- NOTE | 2016-10-05 21:48 | CON ---
DATE: 10/05/2016 HISTORY OF PRESENT ILLNESS: A 65-year-old black female with a history of asthma, hypertension. The patient had been in the usual state of health when she developed some chest palpitations and chest di scomfort, came to the ER because of persistent chest symptoms. The patient was seen in consultation by Dr. Tate Melo in the ER and able to be discharged home in improved condition to follow up as an o utpatient for a stress test. The patient's troponins were negative. Laboratory data was unremarkabl e. Chest x-ray was normal. The patient was seen and evaluated by Dr. Melo. She did have some ectop y in the ER. The patient will be send for an outpatient stress test and echocardiogram and followup. PHYSICAL EXAMINATION: GENERAL: A well-developed, well-nourished, slightly obese black female in no apparent distress. HEENT: Essentially normal. HEART: Regular sinus rhythm with ectopy. CHEST: Clear to auscultation and percussion. EXTREMITIES: Without cyanosis, clubbing or edema. ABDOMEN: Obese but benign. IMPRESSION: To discharge home to follow up with Dr. Tate Melo for a stress test and echo. Meet Gaviria MD cc: [id number] TT: 10/05/2016 21:48:06 Confirmation # [id number] Dictation # [id number] marlo
== END 2016-10-05 12:03 | disposition home or self-care (01) ==
LOC: ED 06:03
DX: R07.9 Chest pain, unspecified (principal); Z87.891 Personal history of nicotine dependence; I10 Essential (primary) hypertension

== ENCOUNTER 2017-01-13 10:20 | Emergency (ER) | payer MEDICARE, MEDICAID ==
[2017-01-13 10:20] VITALS: BMI 36.6
--- NOTE | 2017-01-13 10:41 | ED PDOC ---
Arrival/HPI - General Time Seen by Provider: 01/13/17 10:39 - History of Present Illness Narrative History of Present Illness (Text): 01/13/17 10:51 66yo female with a hx of asthma and htn, presents with 1 week duration of retrosternal chest burning. 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 Pt states she has been taking tums and nexium with little relief. Pt states this is also accompanied by mild shortness of breath which feels different from her asthma symptoms. No back pain, no f/c, no other complaints. Past Medical History - Provider Review Nursing Documentation Reviewed: Yes - Infectious Disease Hx of Infectious Diseases: None - Tetanus Immunization Tetanus Immunization: Unknown - Cardiac Hx Angina: (chest pain) Hx Hypertension: Yes - Pulmonary Hx Asthma: Yes - Neurological Hx Paralysis: No - HEENT Hx HEENT Disorder: No Hx Difficulty Chewing: No - Renal Hx Renal Disorder: No - Endocrine/Metabolic Hx Endocrine Disorders: No - Hematological/Oncological Hx Blood Transfusion Reaction: No - Integumentary Hx Dermatological Disorder: No - Musculoskeletal/Rheumatological Hx Musculoskeletal Disorders: Yes - Gastrointestinal Hx Gastrointestinal Disorders: Yes Hx Diverticulitis: Yes Hx Gastritis: Yes Hx Gastroesophageal Reflux: Yes - Genitourinary/Gynecological Hx Genitourinary Disorders: No - Psychiatric Hx Psychophysiologic Disorder: No Hx Emotional Abuse: No Hx Physical Abuse: No Hx Substance Use: No - Past Surgical History Past Surgical History: No Previous - Surgical History Hx Dilation and Curettage: Yes Other/Comment: Colonoscopy - Anesthesia Hx Anesthesia: Yes Hx Anesthesia Reactions: No Hx Malignant Hyperthermia: No - Suicidal Assessment Feels Threatened In Home Enviroment: No Family/Social History Family/Social History: Unknown Family HX Smoking Status: Former Smoker Hx Alcohol Use: No Hx Substance Use: No Hx Substance Use Treatment: No Allergies/Home Meds Allergies/Adverse Reactions: Allergies peanut Allergy (Verified 01/13/17 10:45) RASH Penicillins Allergy (Verified 01/13/17 10:45) RASH peanuts Allergy (Uncoded 01/13/17 10:45) ITCHING Home Medications: Home Meds Medication Instructions Recorded Confirmed Budesonide/Formoterol Fumarate 2 puff IH BID 08/27/11 01/13/17 [Symbicort 80-4.5 Mcg Inhaler] Montelukast Sodium [Singulair] 10 mg PO HS 05/22/15 01/13/17 Beclomethasone Dipropionate [Qvar] 2 inh INH BID 02/14/16 01/13/17 Albuterol HFA [Ventolin HFA 90 0.09 mg IH QID 09/14/16 01/13/17 mcg/actuation (8 g)] Linaclotide [Linzess] 145 mcg PO 2XW 10/16/16 01/13/17 Valsartan [Diovan] 320 mg PO DAILY 01/13/17 01/13/17 Physical Exam - Physical Exam Narrative Physical Exam (Text): 01/13/17 10:56 - Review of Systems Constitutional: Normal. absent: Fatigue, Weight Change, Fevers Eyes: Normal ENT: denies sore throat, denies tristhmus Respiratory: SOB. absent: Cough, Sputum Cardiovascular: chest burning. absent: Palpitations, Syncope Gastrointestinal: Normal. absent: Abdominal Pain, Diarrhea, Nausea, Vomiting Genitourinary: Normal. absent: Dysuria, Frequency, Hematuria, vaginal bleeding Musculoskeletal: Normal. absent: Arthralgias, Back Pain, Neck Pain Skin: no rashes, no erythema Neurological: absent: Focal Weakness Endocrine: Normal Hemo/Lymphatic: Normal Psychiatric: No suicidal or homicidal ideations Physical exam Patient appears age appropriate in no distress, speaking full sentences without difficulty - Systems Exam Head: Present: Atraumatic, Normocephalic Pupils: Present: PERRL Extroacular Muscles: Present: EOMI Conjunctiva: Present: Normal Mouth: Present: Moist Mucous Membranes Neck: Present: Normal Range of Motion. No: MIDLINE TENDERNESS, Paraspinal Tenderness Respiratory/Chest: Present: Clear to Auscultation, Good Air Exchange. No: Respiratory Distress, Accessory Muscle Use, Tachypneic Cardiovascular: Present: Regular Rate and Rhythm, Normal S1, S2, Peripheal Pulses Present. No: Murmurs Abdomen: Present: Normal Bowel Sounds. No: Tenderness, Distention, Peritoneal Signs, Rebound, Guarding Back: Present: Normal Inspection. No: Midline Tenderness, Paraspinal Tenderness Upper Extremity: Present: Normal Inspection. No: Cyanosis, Edema Lower Extremity: Present: Normal Inspection. No: Edema Neurological: Present: GCS=15, Speech Normal, cranial nerves II through XII fully intact with no cerebellar abnormality, neurosensory fully intact. No focal neurological deficits. Skin: Present: Warm, Dry, Normal Color. No: Rashes Lymphatic: Present: OX3, NI, NC Psychiatric: Present: Alert, Oriented x 3, Normal Insight, Normal Concentration Vital Signs Reviewed: Yes Vital Signs Temp Pulse Resp BP Pulse Ox 01/13/17 11:24 75 18 156/94 H 98 01/13/17 10:41 98 F 79 18 156/94 H 100 Temperature: Afebrile Blood Pressure: Hypertensive Pulse: Regular Respiratory Rate: Normal Appearance: Positive for: Well-Appearing Pain Distress: None Mental Status: Positive for: Alert and Oriented X 3 Medical Decision Making ED Course and Treatment: 66yo female with retrosternal burning and SOB. No acute findings on physical examination. Pt's lungs are clear to ausc. b/l Patient's previous records reviewed, patient was in the hospital on 09/2016 after being worked up for chest pain and palpitations. She was set up for an outpatient stress test. Patient has a history of asthma and hypertension. Patients stress test showed ejection fraction of 81% and no acute abnormalities. EKG shows normal sinus, 81bpm, no st-segment elevations, normal intervals. Interpreted by me. Differential includes but not limited to: GERD, atypical acs 01/13/17 11:53 CXR Radiologist IMPRESSION: No interval consolidation/infiltrate. Cardiomegaly ; minimal pulmonary vascular congestion possible -no interval change in appearance pt in no distress and denies complaints I recommended further w/u in the hospital The patient refuses admission and wishes to leave the Emergency Department against my medical advice. Patient was told that admission to the hospital is necessary and a full explanation of the reasons why was given, and understood by patient. The risks of leaving were explained and include worsening of condition, and permanent disability and from an undiagnosed or untreated condition. The patient accepts these risks, and is in my judgment is competent and capable of understanding the clinical situation and my explanation of the risks of leaving. Patient was given the opportunity to ask questions and change mind. The patient was instructed regarding the best care for the present symptoms, and to follow up with Dr. Gaviria as soon as possible, or return to the Emergency Department at any time for continuing care. dw Dr. Gaviria and he is aware of above - Lab Interpretations Lab Results: 01/13/17 10:55 01/13/17 10:55 Lab Results 01/13/17 10:55: Sodium 142, Potassium 3.7, Chloride 102, Carbon Dioxide 30, Anion Gap 14, BUN 14, Creatinine 0.7, Est GFR ( Amer) > 60, Est GFR (Non- Af Amer) > 60, Random Glucose 81, Calcium 9.7, Total Bilirubin 0.5, AST 26, ALT 37, Alkaline Phosphatase 90, Lactate Dehydrogenase 534, Total Creatine Kinase 150, Troponin I < 0.01, NT-Pro-B Natriuret Pep 35.4, Total Protein 6.6, Albumin 3.9, Globulin 2.8, Albumin/Globulin Ratio 1.4, Lipase 38 01/13/17 10:55: PT 10.9, INR 1.01, APTT 26.6 01/13/17 10:55: WBC 9.8, RBC 4.12, Hgb 12.1, Hct 37.3, MCV 90.5, MCH 29.4, MCHC 32.4, RDW 13.3, Plt Count 297, MPV 9.7, Gran % 51.3, Lymph % (Auto) 40.5 H, [place] % (Auto) 6.7 H, Eos % (Auto) 1.3 L, Baso % (Auto) 0.2, Gran # 5.01, Lymph # 4.0 H, [place] # 0.7 H, Eos # 0.1, Baso # 0.02 - RAD Interpretation Radiology Orders: 01/13/17 10:48 CHEST PORTABLE [RAD] Stat - Medication Orders Current Medication Orders: Discontinued Medications Pantoprazole Sodium (Protonix Inj) 40 mg IVP STAT STA Stop: 01/13/17 10:49 Last Admin: 01/13/17 11:17 Dose: 40 mg IVP Administration Document 01/13/17 11:17 EQ (Rec: 01/13/17 11:17 EQ [email or web address]) Charges for Administration # of IVP Administrations 1 Disposition/Present on Arrival - Present on Arrival Any Indicators Present on Arrival: No History of DVT/PE: No History of Uncontrolled Diabetes: No Urinary Catheter: No History Surgical Site Infection Following: None - Disposition Have Diagnosis and Disposition been Completed?: Yes Diagnosis: Chest pain Disposition: AGAINST MEDICAL ADVICE Disposition Time: 11:56 Patient Plan: Discharge Condition: STABLE Discharge Instructions (ExitCare): Chest Pain (ED) Additional Instructions: PLEASE RETURN TO THE EMERGENCY DEPARTMENT FOR NEW OR WORSENING SYMPTOMS. RETURN RIGHT AWAY IF YOU CANNOT FOLLOW UP WITH YOUR PRIMARY CARE DOCTOR, CLINIC, OR SPECIALIST IN 1-2 DAYS.
[2017-01-13 10:45] VITALS: BP 156/94; RESP 18; TEMP 98
--- NOTE | 2017-01-13 11:10 | RAD ---
HISTORY: cough COMPARISON: 10/05/2016 FINDINGS: LUNGS: No active pulmonary disease. PLEURA: No significant pleural effusion identified, no pneumothorax apparent. CARDIOVASCULAR: Cardiomegaly. Minimal pulmonary vascular congestion possible - similar appearance OSSEOUS STRUCTURES: Thoracic spondylosis VISUALIZED UPPER ABDOMEN: Normal. OTHER FINDINGS: None. IMPRESSION: No interval consolidation/infiltrate. Cardiomegaly ; minimal pulmonary vascular congestion possible -no interval change in appearance
[2017-01-13 11:23] LABS: BASO # 0.02 K/mm3 (0.0-2.0); BASO % 0.2 % (0.0-3.0); EOS # 0.1 (0.0-0.7); EOS % 1.3 % (1.5-5.0); GRAN # 5.01 (1.4-6.5); GRAN % 51.3 % (50.0-68.0); HEMATOCRIT 37.3 % (36.0-48.0); LYMPH % 40.5 % (22.0-35.0); MEAN CELL VOLUME 90.5 fl (80.0-105.0); MEAN CORPUSCULAR HEMOGLOBIN 29.4 pg (25.0-35.0); MEAN CORPUSCULAR HGB CONC 32.4 g/dl (31.0-37.0); MEAN PLATELET VOLUME 9.7 fl (7.0-11.0); MONO # 0.7 (0.1-0.6); MONO % 6.7 % (1.0-6.0); RED CELL DISTRIBUTION WIDTH 13.3 % (11.5-14.5); WHITE BLOOD COUNT 9.8 10^3/ul (4.5-11.0)
[2017-01-13 11:25] VITALS: PULSE 75; O2SAT 98
[2017-01-13 11:34] LABS: ALB/GLOB RATIO 1.4 (1.1-1.8); ALKALINE PHOSPHATASE 90 U/L (38-126); ALT/SGPT 37 U/L (7-56); AST/SGOT 26 U/L (14-36); BILIRUBIN,TOTAL 0.5 mg/dL (0.2-1.3); BLOOD UREA NITROGEN 14 mg/dL (7-21); CALCIUM 9.7 mg/dL (8.4-10.5); CARBON DIOXIDE 30 mmol/L (21-33); CHLORIDE 102 mmol/L (98-107); GFR AFRICAN-AMERICAN > 60; GLUCOSE,RANDOM 81 mg/dL (70-110); INR 1.01 (0.93-1.08); LIPASE 38 U/L (23-300); PARTIAL THROMBOPLASTIN TIME 26.6 Seconds (23.7-30.8); POTASSIUM 3.7 mmol/L (3.6-5.0); SODIUM 142 mmol/L (132-148); TOTAL PROTEIN 6.6 g/dL (5.8-8.3)
[2017-01-13 11:46] LABS: TROPONIN I < 0.01 ng/mL
--- NOTE | 2017-01-13 23:05 | CARD ---
APPROVED REPORT EKG Measurement Heart [id number] <Conclusion> Normal sinus rhythm Normal ECG
== END 2017-01-13 12:17 | disposition left against medical advice (07) ==
LOC: ED 10:20
DX: R07.9 Chest pain, unspecified (principal)
CPT/HCPCS: 71010; 80053; 82550; 83615; 83690; 83880; 84484; 85025; 85610; 85730; 93005; 96374; 99284; C9113

== ENCOUNTER 2017-04-08 09:08 | Inpatient (IN) | payer MEDICARE, MEDICAID ==
[2017-04-08 09:17] VITALS: BMI 35.9
[2017-04-08] MEDS ORDERED: Albuterol-Ipratrop 3 mg / 0.5 (3 ml) UD IH STA ×3 (09:35→09:37)
--- NOTE | 2017-04-08 09:41 | ED PDOC ---
Arrival/HPI - General Chief Complaint: Shortness Of Breath Time Seen by Provider: 04/08/17 09:35 Historian: Patient - History of Present Illness Narrative History of Present Illness (Text): 04/08/17 09:37 66-year-old female with a history of asthma and hypertension presents today with a 2 day history of shortness of breath nasal congestion fever of 101 and chest pain with cough. Patient states she has a history of asthma. Patient has had prior hospitalizations for asthma. Patient denies abdominal pain. No nausea or vomiting. Patient states she is having productive cough with yellow phlegm complaining of nasal congestion and left ear pain. Patient complaining of wheezing and shortness of breath that has worsened over the past 2 days despite nebulizer treatments at home. Time/Duration: Other (2 days) Past Medical History - Provider Review Nursing Documentation Reviewed: Yes - Travel History Have you recently traveled outside [place] w/in the past 3 mons?: No - Infectious Disease Hx of Infectious Diseases: None - Tetanus Immunization Tetanus Immunization: Unknown - Reproductive Menopause: Yes - Cardiac Hx Angina: (chest pain) Hx Hypertension: Yes - Pulmonary Hx Asthma: Yes - Neurological Hx Paralysis: No - HEENT Hx HEENT Disorder: No Hx Difficulty Chewing: No - Renal Hx Renal Disorder: No - Endocrine/Metabolic Hx Endocrine Disorders: No - Hematological/Oncological Hx Blood Transfusion Reaction: No - Integumentary Hx Dermatological Disorder: No - Musculoskeletal/Rheumatological Hx Musculoskeletal Disorders: Yes - Gastrointestinal Hx Gastrointestinal Disorders: Yes Hx Diverticulitis: Yes Hx Gastritis: Yes Hx Gastroesophageal Reflux: Yes - Genitourinary/Gynecological Hx Genitourinary Disorders: No - Psychiatric Hx Psychophysiologic Disorder: No Hx Emotional Abuse: No Hx Physical Abuse: No Hx Substance Use: No - Past Surgical History Past Surgical History: No Previous - Surgical History Hx Dilation and Curettage: Yes Other/Comment: Colonoscopy - Anesthesia Hx Anesthesia: Yes Hx Anesthesia Reactions: No Hx Malignant Hyperthermia: No - Suicidal Assessment Feels Threatened In Home Enviroment: No Family/Social History - Physician Review Nursing Documentation Reviewed: Yes Family/Social History: Unknown Family HX Smoking Status: Former Smoker Hx Alcohol Use: No Hx Substance Use: No Hx Substance Use Treatment: No Allergies/Home Meds Allergies/Adverse Reactions: Allergies peanut Allergy (Verified 01/13/17 10:45) RASH Penicillins Allergy (Verified 01/13/17 10:45) RASH peanuts Allergy (Uncoded 01/13/17 10:45) ITCHING Home Medications: Home Meds Medication Instructions Recorded Confirmed Budesonide/Formoterol Fumarate 2 puff IH BID 08/27/11 01/13/17 [Symbicort 80-4.5 Mcg Inhaler] Montelukast Sodium [Singulair] 10 mg PO HS 05/22/15 01/13/17 Beclomethasone Dipropionate [Qvar] 2 inh INH BID 02/14/16 01/13/17 Albuterol HFA [Ventolin HFA 90 0.09 mg IH QID 09/14/16 01/13/17 mcg/actuation (8 g)] Linaclotide [Linzess] 145 mcg PO 2XW 10/16/16 01/13/17 Valsartan [Diovan] 320 mg PO DAILY 01/13/17 01/13/17 Review of Systems - Review of Systems Constitutional: Fevers ENT: Sinus Congestion, Other (left ear pain) Respiratory: SOB, Cough, Wheezing Cardiovascular: Chest Pain (with cough only) Gastrointestinal: absent: Abdominal Pain, Nausea, Vomiting Genitourinary Female: absent: Dysuria, Frequency, Hematuria Musculoskeletal: absent: Arthralgias, Back Pain, Neck Pain Neurological: absent: Headache Physical Exam Vital Signs Reviewed: Yes Vital Signs Temp Pulse Resp BP Pulse Ox 04/08/17 11:30 98.5 F 105 H 20 160/75 H 98 04/08/17 11:13 107 H 18 166/138 H 99 04/08/17 09:42 22 04/08/17 09:24 99.7 F H 105 H 22 148/86 93 L 04/08/17 09:17 99.7 F H 105 H 22 148/86 93 L Temperature: Afebrile Blood Pressure: Normal Pulse: Tachycardic Respiratory Rate: Normal Appearance: Positive for: Well-Appearing, Non-Toxic, Comfortable Pain Distress: None Mental Status: Positive for: Alert and Oriented X 3 - Systems Exam Head: Present: Atraumatic Mouth: Present: Moist Mucous Membranes Nose (External): Present: Atraumatic Nose (Internal): Present: Clear Mucous. No: Septal Hematoma Neck: Present: Normal Range of Motion, Trachea Midline. No: Meningeal Signs Respiratory/Chest: Present: Good Air Exchange, Wheezes (Diffuse wheezing noted bilaterally), Rhonchi, Tachypneic. No: Clear to Auscultation, Respiratory Distress, Accessory Muscle Use, Decreased Breath Sounds Cardiovascular: Present: Tachycardic. No: Murmurs Abdomen: No: Tenderness Lower Extremity: No: Edema Neurological: Present: GCS=15, Speech Normal Skin: Present: Warm, Dry, Normal Color. No: Rashes Psychiatric: Present: Alert, Oriented x 3 Medical Decision Making ED Course and Treatment: 04/08/17 09:40 66-year-old female with shortness of breath cough fever and history of asthma with diffuse wheezing bilaterally DuoNeb 3 Solu Medrol 125 IV CBC: wnl CMP wnl Blood cultures:pending cxr:FINDINGS: LUNGS: There is patient rotation to the right. The lungs are well inflated and clear. PLEURA: No significant pleural effusion identified, no pneumothorax apparent. CARDIOVASCULAR: Normal. OSSEOUS STRUCTURES: No significant abnormalities. VISUALIZED UPPER ABDOMEN: Normal. OTHER FINDINGS: None. IMPRESSION: No active pulmonary disease. pt reassessment; pt with continued wheezing and sob. magnesium 2g IV ordered. tylenol ordered for fever. 04/08/17 10:37 pt requesting motrin for headache. 04/08/17 11:45 pt with continued symptoms; diffuse wheezing noted; vitals remain stable; albuterol added pt started on levaquin IV. case discussed with dr. mireles; accepts observational status admission for asthma exacerbation. pt was seen and evaluated by dr. restrepo. impression; asthma exacerbation admit observational status to tele. - Lab Interpretations Lab Results: 04/08/17 10:00 04/08/17 10:00 Lab Results 04/08/17 10:00: WBC 9.4, RBC 4.28, Hgb 12.7, Hct 39.1, MCV 91.4, MCH 29.7, MCHC 32.5, RDW 14.1, Plt Count 276, MPV 10.0, Gran % 69.6 H, Lymph % (Auto) 21.5 L, Jenkins % (Auto) 8.3 H, Eos % (Auto) 0.3 L, Baso % (Auto) 0.3, Gran # 6.55 H, Lymph # 2.0, Jenkins # 0.8 H, Eos # 0.0, Baso # 0.03 04/08/17 10:00: Sodium 142, Potassium 3.6, Chloride 105, Carbon Dioxide 29, Anion Gap 11, BUN 9, Creatinine 0.6 L, Est GFR ( Amer) > 60, Est GFR (Non -Af Amer) > 60, Random Glucose 85, Calcium 9.6, Total Bilirubin 0.6, AST 25, ALT 39, Alkaline Phosphatase 98, Total Protein 6.5, Albumin 3.9, Globulin 2.6, Albumin/Globulin Ratio 1.5 04/08/17 09:30: Influenza Typ A,B (EIA) Negative for flu a/b - RAD Interpretation Radiology Orders: 04/08/17 09:35 CHEST PORTABLE [RAD] Stat - Medication Orders Current Medication Orders: Discontinued Medications Acetaminophen (Tylenol 325mg Tab) 975 mg PO STAT STA Stop: 04/08/17 10:32 Last Admin: 04/08/17 10:58 Dose: 975 mg MAR Pain/Vitals Document 04/08/17 10:58 OCS (Rec: 04/08/17 10:58 OCS [id number]) Pain Reassessment Is This A Pain ReAssessment? No Sleep Is patient sleeping during reassessment? No Presence of Pain Presence of Pain No Albuterol Sulfate (Albuterol 0.083% Inhal Ghislaine (2.5 Mg/3 Ml) Ud) 2.5 mg IH STAT STA Stop: 04/08/17 11:14 Last Admin: 04/08/17 11:39 Dose: 2.5 mg Albuterol/Ipratropium (Duoneb 3 Mg/0.5 Mg (3 Ml) Ud) 3 ml IH STAT STA Stop: 04/08/17 09:36 Last Admin: 04/08/17 10:14 Dose: 3 ml Albuterol/Ipratropium (Duoneb 3 Mg/0.5 Mg (3 Ml) Ud) 3 ml IH STAT STA Stop: 04/08/17 09:37 Last Admin: 04/08/17 10:05 Dose: 3 ml Albuterol/Ipratropium (Duoneb 3 Mg/0.5 Mg (3 Ml) Ud) 3 ml IH STAT STA Stop: 04/08/17 09:38 Last Admin: 04/08/17 10:00 Dose: 3 ml Magnesium Sulfate 2 gm/ Sodium (Chloride) 104 mls @ 102 mls/hr IVPB ONCE ONE Stop: 04/08/17 11:19 Last Admin: 04/08/17 10:59 Dose: 102 mls/hr eMAR Start Stop Document 04/08/17 10:59 OCS (Rec: 04/08/17 10:59 OCS [id number]) Intravenous Solution Start Date 04/08/17 Start Time 10:59 End Date 04/08/17 End time 12:01 Total Infusion Time 62 Ibuprofen (Motrin Tab) 600 mg PO STAT STA Stop: 04/08/17 10:37 Last Admin: 04/08/17 10:58 Dose: 600 mg MAR Pain/Vitals Document 04/08/17 10:58 OCS (Rec: 04/08/17 10:59 OCS [id number]) Pain Reassessment Is This A Pain ReAssessment? No Sleep Is patient sleeping during reassessment? No Presence of Pain Presence of Pain Yes Methylprednisolone (Solu-Medrol) 125 mg IVP STAT STA Stop: 04/08/17 09:36 Last Admin: 04/08/17 10:14 Dose: 125 mg IVP Administration Document 04/08/17 10:14 OCS (Rec: 04/08/17 10:14 [id number]) Charges for Administration # of IVP Administrations 1 Disposition/Present on Arrival - Present on Arrival Any Indicators Present on Arrival: No History of DVT/PE: No History of Uncontrolled Diabetes: No Urinary Catheter: No History of Decub. Ulcer: No History Surgical Site Infection Following: None - Disposition Have Diagnosis and Disposition been Completed?: Yes Diagnosis: Asthma exacerbation Disposition: HOSPITALIZED Disposition Time: 11:47 Patient Plan: Observation Condition: FAIR Referrals: Sumbola Gabrielle Zamarripa, [Non-Staff] - Follow up with primary Forms: [employer] (Maldivian)
[2017-04-08 10:17] LABS: BASO # 0.03 K/mm3 (0.0-2.0); BASO % 0.3 % (0.0-3.0); EOS % 0.3 % (1.5-5.0); GRAN # 6.55 (1.4-6.5); GRAN % 69.6 % (50.0-68.0); HEMATOCRIT 39.1 % (36.0-48.0); LYMPH % 21.5 % (22.0-35.0); MEAN CELL VOLUME 91.4 fl (80.0-105.0); MEAN CORPUSCULAR HEMOGLOBIN 29.7 pg (25.0-35.0); MEAN CORPUSCULAR HGB CONC 32.5 g/dl (31.0-37.0); MONO # 0.8 (0.1-0.6); MONO % 8.3 % (1.0-6.0); RED CELL DISTRIBUTION WIDTH 14.1 % (11.5-14.5); WHITE BLOOD COUNT 9.4 10^3/ul (4.5-11.0)
[2017-04-08] MEDS ORDERED: Magnesium Sulfate 2 GM in Sodium Chloride 0.9% 100 ML IVPB ONE (10:18)
[2017-04-08 10:27] LABS: ALB/GLOB RATIO 1.5 (1.1-1.8); ALKALINE PHOSPHATASE 98 U/L (38-126); ALT/SGPT 39 U/L (7-56); AST/SGOT 25 U/L (14-36); BILIRUBIN,TOTAL 0.6 mg/dL (0.2-1.3); BLOOD UREA NITROGEN 9 mg/dL (7-21); CALCIUM 9.6 mg/dL (8.4-10.5); CARBON DIOXIDE 29 mmol/L (21-33); CHLORIDE 105 mmol/L (98-107); GFR AFRICAN-AMERICAN > 60; GLUCOSE,RANDOM 85 mg/dL (70-110); POTASSIUM 3.6 mmol/L (3.6-5.0); SODIUM 142 mmol/L (132-148); TOTAL PROTEIN 6.5 g/dL (5.8-8.3)
--- NOTE | 2017-04-08 10:34 | RAD ---
HISTORY: chest pain COMPARISON: 01/13/2017. FINDINGS: LUNGS: There is patient rotation to the right. The lungs are well inflated and clear. PLEURA: No significant pleural effusion identified, no pneumothorax apparent. CARDIOVASCULAR: Normal. OSSEOUS STRUCTURES: No significant abnormalities. VISUALIZED UPPER ABDOMEN: Normal. OTHER FINDINGS: None. IMPRESSION: No active pulmonary disease.
[2017-04-08] MEDS ORDERED: Albuterol 0.083% Inhal Sol (2.5 mg/3 mL) UD IH STA (11:13)
[2017-04-08] MEDS ORDERED: levoFLOXacin 750 mg in D5W 750 MG/150 ML BAG IVPB STA (11:44)
[2017-04-08] MEDS ORDERED: Albuterol 0.083% Inhal Sol (2.5 mg/3 mL) UD IH PRN ×2 (15:56→19:30)
[2017-04-08] MEDS ORDERED: Influenza Vaccine 60 mcg/0.5 mL SYR (4YR UP) IM ONE (16:56)
[2017-04-08] MEDS ORDERED: Pneumococcal 23-Valent Vaccine IM ONE (16:56)
--- NOTE | 2017-04-08 18:53 | CARD ---
APPROVED REPORT EKG Measurement Heart [id number] <Conclusion> Normal sinus rhythm Normal ECG
[2017-04-08] MEDS: MethylPREDNISolone 40 mg Vial IVP SCH (21:53)
[2017-04-08] MEDS: Latanoprost 2.5 ml Opht Soln OU SCH (21:54)
[2017-04-09] MEDS ORDERED: Albuterol-Ipratrop 3 mg / 0.5 (3 ml) UD IH SCH
[2017-04-09] MEDS: Albuterol-Ipratrop 3 mg / 0.5 (3 ml) UD IH SCH ×4 (05:29→20:23)
[2017-04-09] MEDS: Pantoprazole 40 mg EC Tab PO SCH (06:49)
[2017-04-09] MEDS: MethylPREDNISolone 40 mg Vial IVP SCH ×3 (06:49→21:06)
[2017-04-09] MEDS: SYMBICORT IH SCH ×2 (11:09→20:15)
--- NOTE | 2017-04-09 11:10 | HP ---
HISTORY OF PRESENT ILLNESS: A 66-year-old black female with history of asthma, hypertension, multiple admissions for chest pain, which the patient has been cleared by gun stock checker for cardiac status. She is admitted to the hospital with some wheezing, shortness of breath, cough, hemoptysis, and difficulty breathing. Recently he also was found to have glaucoma and cataracts, and was recently placed on medication, which she thinks might have triggered her asthma. PHYSICAL EXAMINATION: GENERAL: She is a well-developed, but obese black in mild to moderate respiratory distress. HEENT: Within normal limits. HEART: Reveals sinus rhythm. CHEST: Shows diffuse wheezing in all lung wilde and some rhonchi bibasilar. ABDOMEN: Obese, but benign. EXTREMITIES: Without cyanosis, clubbing or edema. NEUROLOGIC: Grossly intact. IMPRESSION: Exacerbation of asthma, hemoptysis, rule out pneumonia. Meet Gaviria MD
[2017-04-09] MEDS ORDERED: Magnesium Hydroxide Susp 30 ml UD PO STA (20:37)
[2017-04-09] MEDS: Latanoprost 2.5 ml Opht Soln OU SCH (21:17)
[2017-04-10] MEDS: Albuterol-Ipratrop 3 mg / 0.5 (3 ml) UD IH SCH ×4 (01:00→19:51)
--- NOTE | 2017-04-10 02:40 | CON ---
PULMONARY CONSULTATION DATE: 04/09/2017 REFERRING PHYSICIAN: Meet Gaviria MD REASON FOR CONSULTATION: Hemoptysis, exacerbation of asthma, rhinitis, and facial discomfort. HISTORY OF PRESENT ILLNESS: This is a 66-year-old obese female history of childhood asthma, hypertension, GERD, came in with fever, cough, and shortness of breath, received IV and inhaled bronchodilator, antibiotics, and feels little better. No nausea. No vomiting. No diarrhea. No leg pain or leg swelling. Admit to have loud snoring at nighttime. PAST MEDICAL HISTORY: Hypertension, chronic obstructive lung disease, obesity, history of diverticulitis, gastritis, and history of colonoscopy. SOCIAL HISTORY: Deny any smoking or alcohol use. She is a former smoker. ALLERGIES: PENICILLIN, ALSO ALLERGIC TO PEANUTS. MEDICATIONS: She is on albuterol/Atrovent nebulizer q.4 hours p.r.n., Cozaar 100 mg daily, doxycycline 100 mg twice a day, DuoNeb q.6 hours, Protonix 40 mg daily, Singulair 10 mg daily, Solu-Medrol 40 mg q.8 hours, Tylenol p.r.n. basis, and Xalatan eye drops. REVIEW OF SYSTEMS: Has a rhinitis, cough, postnasal drip, short of breath, and blood-tinged sputum. Admit to have snoring at nighttime and constipation. No nausea. No leg pain or leg swelling. PHYSICAL EXAMINATION: GENERAL: Sitting at the side of the bed, in no acute distress. VITAL SIGNS: Temperature is 98, heart rate is 88, respiratory rate is 20, blood pressure is 160/82, and pulse ox is 96% on room air. HEENT: Moist mucous membranes. Crowded airway. Mallampati score is IV. Has a facial tenderness. NECK: Supple. No JVD. LUNGS: Prolonged expiratory phase with some wheezing. HEART: S1 and S2. ABDOMEN: Soft and nontender. No organomegaly. EXTREMITIES: No edema. NEUROLOGIC: Awake, alert, and follows simple commands. LABORATORY DATA: Shows hemoglobin is 12.7, hematocrit is 39.1, WBC is 9.4, and platelet is 276. Sodium 142, potassium 3.6, chloride , bicarbonate 29, BUN 9, creatinine 0.6, glucose 85, calcium 9.6, total bili 0.6, AST 25, ALT 39, alk phos is 98, and albumin is 3.9. Influenza A and B is negative. Microbiology, blood culture so far, there is no growth. Chest x-ray done on admission, no infiltrate or effusion noted. IMPRESSION AND PLAN: Exacerbation of chronic obstructive lung disease, may have a sinusitis, history of gastroesophageal reflux disease, obesity, and hypertension. Agree with the present management. Continue IV and inhaled bronchodilator. Continue antibiotics. May add Flonase each nostril twice a day. Gastric prophylaxis, SCDs to lower extremity, urged the patient to lose weight, and will benefit from outpatient PFT and attended sleep study. Thank you and we will follow with you. Santi Lerma MD
[2017-04-10] MEDS: Pantoprazole 40 mg EC Tab PO SCH (06:29)
[2017-04-10] MEDS: MethylPREDNISolone 40 mg Vial IVP SCH ×3 (06:29→21:12)
[2017-04-10 07:20] LABS: MEAN CELL VOLUME 92.6 fl (80.0-105.0); MEAN CORPUSCULAR HEMOGLOBIN 29.2 pg (25.0-35.0); MEAN CORPUSCULAR HGB CONC 31.5 g/dl (31.0-37.0); MEAN PLATELET VOLUME 10.4 fl (7.0-11.0); RED CELL DISTRIBUTION WIDTH 14.5 % (11.5-14.5); WHITE BLOOD COUNT 24.1 10^3/ul (4.5-11.0)
[2017-04-10 07:59] LABS: ALB/GLOB RATIO 1.3 (1.1-1.8); ALKALINE PHOSPHATASE 103 U/L (38-126); ALT/SGPT 50 U/L (7-56); AST/SGOT 38 U/L (14-36); BILIRUBIN,TOTAL 0.3 mg/dL (0.2-1.3); BLOOD UREA NITROGEN 17 mg/dL (7-21); CALCIUM 9.9 mg/dL (8.4-10.5); CARBON DIOXIDE 28 mmol/L (21-33); CHLORIDE 103 mmol/L (98-107); GFR AFRICAN-AMERICAN > 60; GLUCOSE,RANDOM 146 mg/dL (70-110); POTASSIUM 4.1 mmol/L (3.6-5.0); SODIUM 143 mmol/L (132-148)
[2017-04-10] MEDS: SYMBICORT IH SCH ×2 (10:32→17:42)
--- NOTE | 2017-04-10 15:02 | PN ---
DATE: SUBJECTIVE: A 66-year-old black female admitted to the hospital with exacerbation of COPD, asthma, possible bronchitis, possible pneumonia, hemoptysis. The patient is still wheezing and is still short of breath, still congested. Her vital signs are stable. Her pulse is 101, blood pressure is 149/73. White count is up to 24,000 possibly secondary to steroids. The patient is to continue IV antibiotics, bronchodilators, and steroids. Chest shows wheezing bilaterally. There is no further hemoptysis. The patient was seen in consultation by ____ . The plan is to continue current medications and bronchodilators. Meet Gaviria MD
[2017-04-10] MEDS: Latanoprost 2.5 ml Opht Soln OU SCH (21:12)
--- NOTE | 2017-04-11 01:02 | PN ---
PULMONARY PROGRESS NOTE DATE: 04/10/2017 REFERRING PHYSICIAN: Meet Gaviria MD SUBJECTIVE: She is lying in the bed, sleepy, arousable. Night was remarkable. Still cough and shortness of breath, some wheezing. No nausea, no vomiting or diarrhea. No leg pain or leg swelling. OBJECTIVE: GENERAL: In no acute distress. VITAL SIGNS: Temperature is 98, heart rate is 90, respiratory rate is 20, blood pressure 155/82, and pulse ox 99% on 2 L nasal cannula. HEENT: Moist mucous membrane. Crowded airway. Mallampati score is IV. NECK: Supple. No JVD. LUNGS: Has expiratory wheezing. HEART: S1 and S2. ABDOMEN: Soft and nontender. No organomegaly. EXTREMITIES: There is no edema. NEUROLOGIC: Awake, alert, follow simple commands. MEDICATIONS: She is on albuterol/Atrovent nebulizer q. 4 hours p.r.n., Cozaar 100 mg daily, doxycycline 100 mg twice a day, DuoNeb q. 6 hours, Protonix 40 mg daily, Singulair 10 mg daily, Solu-Medrol 40 mg q. 8 hours and Tylenol p.r.n. LABORATORY DATA: Shows hemoglobin 12.6, hematocrit 40.0, WBC 24,000 and platelets 326. Sodium 143, potassium 4.1, chloride 103, bicarbonate 28, BUN 17, creatinine 0.7, glucose 146, AST 38, ALT 50 and albumin is 4.0. Influenza A and B is negative. Microbiology; blood culture, there is no growth. IMPRESSION AND PLAN: Exacerbation of chronic obstructive lung disease, may have a component of sinusitis, gastroesophageal reflux disease, morbid obesity, hypertension, leukocytosis probably secondary to steroids. We will continue to follow blood culture closely. Echocardiogram that showed normal left ventricular and right ventricular function. Sleep apnea precautions. Thank you and we will follow with you. Santi Lerma MD
[2017-04-11] MEDS: Albuterol-Ipratrop 3 mg / 0.5 (3 ml) UD IH SCH ×4 (01:37→19:22)
[2017-04-11 06:29] VITALS: RESP 22
[2017-04-11] MEDS: MethylPREDNISolone 40 mg Vial IVP SCH (06:43)
[2017-04-11] MEDS: Pantoprazole 40 mg EC Tab PO SCH (06:43)
[2017-04-11] MEDS: SYMBICORT IH SCH ×2 (09:09→18:43)
[2017-04-11] MEDS ORDERED: Non Formulary Medication (Linaclotide [Linzess] 145 MCG) PO SCH (10:00)
--- NOTE | 2017-04-11 11:52 | PN ---
DATE: SUBJECTIVE: A 66-year-old black female admitted to the hospital with exacerbation of COPD, possible bronchitis, hemoptysis. The patient has deteriorated today. She has more rhonchi and rales in both lungs. She is coughing more and nonproductive. PHYSICAL EXAMINATION: VITAL SIGNS: She is afebrile. Blood pressure 156/75. LABORATORY DATA: White count is 24,000. ASSESSMENT AND PLAN: She is on steroids. Having difficulty sleeping with steroids, but we will taper the steroids some and repeat CT of the chest to look for signs of pneumonia. Plan is as above, and we will reassess in the morning. Meet Gaviria MD
--- NOTE | 2017-04-11 18:22 | PN ---
PULMONARY PROGRESS NOTE DATE: 04/11/2017 REFERRING PHYSICIAN: Meet Gaviria MD SUBJECTIVE: The patient is sitting on side of the bed. Night was unremarkable. Does have some cough and shortness of breath. Seen by Dr. Gaviria before me. No nausea. No vomiting or diarrhea. No leg pain or leg swelling. OBJECTIVE: GENERAL: In no acute distress. VITAL SIGNS: Temperature is 98, heart rate is 89, respiratory rate is 20, blood pressure 156/75, pulse oximetry is 95% on room air. HEENT: Moist mucous membranes. Crowded airway. Mallampati score is 4. NECK: Supple. No JVD. LUNGS: Have a few wheezing but . HEART: S1 and S2. ABDOMEN: Soft, nontender. No organomegaly. EXTREMITIES: No edema. NEUROLOGIC: Awake, alert, follows simple commands. MEDICATIONS: She is on albuterol nebulizer q. 4 hours p.r.n.; Cozaar 100 mg daily; doxycycline 100 mg twice a day; DuoNeb q. 6 hours around the clock; prednisone 20 mg daily; Protonix 40 mg daily; Singulair 10 mg daily; Tylenol p.r.n. LABORATORY DATA: Reviewed and noted. No new lab is available since yesterday. IMPRESSION AND PLAN: Chronic obstructive lung disease, may be component of sinusitis; gastroesophageal reflux disease; morbid obesity; hypertension; may have sleep apnea syndrome. Agree with Dr. Gaviria with the present management, keep head elevated at 45 degrees, sleep apnea precaution, avoid sedation, gastric prophylaxis, SCDs to lower extremity. echocardiogram that showed normal pulmonary pressure and RV function. We will suggest PFT and sleep study upon discharge as an outpatient. Thank you and we will follow with you. Santi Lerma MD
[2017-04-11] MEDS: Latanoprost 2.5 ml Opht Soln OU SCH (21:52)
[2017-04-12] MEDS: Albuterol-Ipratrop 3 mg / 0.5 (3 ml) UD IH SCH ×2 (01:49→07:21)
[2017-04-12] MEDS: Pantoprazole 40 mg EC Tab PO SCH (05:17)
[2017-04-12] MEDS ORDERED: Iohexol 350 MG/100 ML VIAL ONE (08:32)
[2017-04-12] MEDS: SYMBICORT IH SCH (10:00)
[2017-04-12 11:03] VITALS: BP 165/82; PULSE 60; TEMP 97.8; O2SAT 95
--- NOTE | 2017-04-12 11:42 | CT ---
PROCEDURE: CT Chest with contrast HISTORY: cough COMPARISON: None. TECHNIQUE: Contiguous axial images were obtained through the chest with intravenous contrast enhancement. Sagittal and coronal reconstructions were performed. IV contrast: 100 mL Omnipaque 350 Radiation dose (DLP): 1861.34 mGy-cm. This CT exam was performed using one or more of the following dose reduction techniques: Automated exposure control, adjustment of the mA and/or kV according to patient size, and/or use of iterative reconstruction technique. FINDINGS: LUNGS: No pulmonary infiltrate. Linear pleural-based scar in right middle lobe and right lower lobe. No pulmonary mass. MEDIASTINUM: Unremarkable thoracic aorta. No aneurysm or dissection. Normal sized heart. Main pulmonary artery unremarkable. No vascular congestion. No lymphadenopathy. PLEURA: No pleural fluid. No pneumothorax. BONES: No fracture. No destructive lesion. UPPER ABDOMEN: Grossly unremarkable. OTHER FINDINGS: None. IMPRESSION: Unremarkable contrast enhanced CT of the chest.
--- NOTE | 2017-04-13 07:06 | DS ---
HISTORY OF PRESENT ILLNESS: A 66-year-old black female admitted to the hospital with exacerbation of COPD, pneumonia and asthma. The patient was seen in consultation by Dr. Lerma. She received IV steroids, bronchodilators, and antibiotics. Her course was up and down and eventually she started to respond. Vital signs are stable. The patient started to respond to the antibiotics and steroids and eventually her wheezing cleared. She has less shortness of breath. Less cough and she was able to be discharged home in improved condition. The patient did have CT of the chest prior to being discharged home. We are waiting result of that. The patient will be followed up as an outpatient. Continue on bronchodilator, steroids, and antibiotics. FINAL DISCHARGE DIAGNOSES: Exacerbation of asthma, asthmatic bronchitis, hypertension, and obesity. Meet Gaviria MD
--- NOTE | 2017-04-13 11:23 | CARD ---
APPROVED REPORT EXAM: Two-dimensional and M-mode echocardiogram with Doppler and color Doppler. Other Information Quality : GoodRhythm : INDICATION Pulmonary Hypertention 2D DIMENSIONS Left Atrium (2D)3.9 (1.6-4.0cm)IVSd1.2 (0.7-1.1cm) LVDd4.0 (3.9-5.9cm)PWd1.0 (0.7-1.1cm) LVDs2.6 (2.5-4.0cm)FS (%) 35.2 % LVEF (%)65.0 (>50%) M-Mode DIMENSIONS Aortic Root2.90 (2.2-3.7cm)Aortic Cusp Exc.1.80 (1.5-2.0cm) Aortic Valve AoV Peak Gkhhpzor244.0cm/sLVOT Peak Qccrhnty162.0cm/sLVOT VTI25.10cm Mitral Valve MV E Pmsijsor809.0cm/sMV A Jmfktcwt661.0cm/sE/A ratio0.9 TDI Lateral E' Peak V11.20cm/sMedial E' Peak V7.99cm/sE/Lateral E'10.0 E/Medial E'14.0 Pulmonary Valve PV Peak Tvtnxdcl31.2cm/sPV Peak Grad.3mmHg Tricuspid Valve TR Peak Gttllmvb577td/sRAP [id number] Peak Gr.48mmHg [id number] LEFT VENTRICLE The left ventricle is normal size. There is normal left ventricular wall thickness. The left ventricular function is normal. The left ventricular ejection fraction is within the normal range. There is normal LV segmental wall motion. RIGHT VENTRICLE The right ventricle is normal size. ATRIA The left atrium size is normal. The right atrium size is normal. The interatrial septum is intact with no evidence for an atrial septal defect. AORTIC VALVE The aortic valve is normal in structure. MITRAL VALVE The mitral valve is normal in structure. Mitral regurgitation is mild to moderate. TRICUSPID VALVE The tricuspid valve is normal in structure. There is mild tricuspid regurgitation. There is moderate pulmonary hypertension. GREAT VESSELS The aortic root is normal in size. PERICARDIAL EFFUSION There is no pericardial effusion. <Conclusion> The left ventricle is normal size. There is normal left ventricular wall thickness. The left ventricular function is normal. Mitral regurgitation is mild to moderate. There is mild tricuspid regurgitation. There is moderate pulmonary hypertension.
== END 2017-04-12 12:55 | disposition home or self-care (01) | DRG 191 ==
LOC: ED 09:08 → ERH 12:20 → 5RSO 15:00 → OBSVTOIN 04-09 17:24
PROVIDERS: ADMIT Internal Medicine; ATTEND Internal Medicine
PROC: 3E0F7GC Introduction of Other Therapeutic Substance into Respiratory Tract, Via Natural or Artificial Opening (ICD-10-PCS; principal; 2017-04-08)
DX: J44.1 Chronic obstructive pulmonary disease with (acute) exacerbation (principal); J45.901 Unspecified asthma with (acute) exacerbation; R04.2 Hemoptysis; I10 Essential (primary) hypertension; H40.9 Unspecified glaucoma; H26.9 Unspecified cataract; K21.9 Gastro-esophageal reflux disease without esophagitis; E66.9 Obesity, unspecified; Z87.891 Personal history of nicotine dependence

== ENCOUNTER 2017-06-28 10:41 | Emergency (ER) | payer MEDICARE, MEDICAID ==
[2017-06-28 10:42] VITALS: BMI 35.9
[2017-06-28 10:53] VITALS: TEMP 98.2; O2SAT 97
[2017-06-28 11:32] VITALS: RESP 18
[2017-06-28] MEDS ORDERED: MethylPREDNISolone Depo 80 mg/ml (5 ml) Inj IM ONE (11:36)
--- NOTE | 2017-06-28 11:45 | ED PDOC ---
Arrival/HPI - General Chief Complaint: Upper Extremity Problem/Injury Time Seen by Provider: 06/28/17 11:17 Historian: Patient - History of Present Illness Narrative History of Present Illness (Text): 06/28/17 11:38 Analilia Parks is a 66 year old female, whose past medical history includes asthma, rotator cuff in left shoulder, and hypertension, who presents to the emergency department complaining of muscle spasms that radiate from her shoulder down her left arm for a few days. Patient states that her arm began to swell causing her to come to the emergency department. Patient denies any fever, chills, or any other complaints at this time. Time/Duration: 4-6 hours Symptom Onset: Gradual Symptom Course: Unchanged Context: Home Past Medical History - Provider Review Nursing Documentation Reviewed: Yes - Infectious Disease Hx of Infectious Diseases: None - Tetanus Immunization Tetanus Immunization: Unknown - Cardiac Hx Cardiac Disorders: Yes Hx Angina: (chest pain) Hx Hypertension: Yes - Pulmonary Hx Respiratory Disorders: Yes Hx Asthma: Yes - Neurological Hx Neurological Disorder: No - HEENT Hx HEENT Disorder: No Hx Difficulty Chewing: No - Renal Hx Renal Disorder: No - Endocrine/Metabolic Hx Endocrine Disorders: No - Hematological/Oncological Hx Blood Disorders: No - Integumentary Hx Dermatological Disorder: No - Musculoskeletal/Rheumatological Hx Musculoskeletal Disorders: Yes Other/Comment: L SHOULDER PAIN - Gastrointestinal Hx Gastrointestinal Disorders: Yes Hx Diverticulitis: Yes Hx Gastritis: Yes Hx Gastroesophageal Reflux: Yes - Genitourinary/Gynecological Hx Genitourinary Disorders: No - Psychiatric Hx Psychophysiologic Disorder: No Hx Substance Use: No - Past Surgical History Past Surgical History: No Previous - Surgical History Hx Dilation and Curettage: Yes Other/Comment: Colonoscopy - Anesthesia Hx Anesthesia: Yes - Suicidal Assessment Feels Threatened In Home Enviroment: No Family/Social History - Physician Review Nursing Documentation Reviewed: Yes Family/Social History: No Known Family HX Smoking Status: Former Smoker Hx Alcohol Use: No Hx Substance Use: No Hx Substance Use Treatment: No Allergies/Home Meds Allergies/Adverse Reactions: Allergies peanut Allergy (Verified 06/28/17 10:45) RASH Penicillins Allergy (Verified 06/28/17 10:45) RASH peanuts Allergy (Uncoded 06/28/17 10:45) ITCHING Home Medications: Home Meds Medication Instructions Recorded Confirmed Budesonide/Formoterol Fumarate 2 puff IH BID 08/27/11 06/28/17 [Symbicort 80-4.5 Mcg Inhaler] Linaclotide [Linzess] 145 mcg PO 2XW 10/16/16 06/28/17 Valsartan [Diovan] 160 mg PO DAILY 01/13/17 06/28/17 Mometasone Furoate [Asmanex Hfa] 2 puff NEB BID 06/28/17 06/28/17 Review of Systems - Physician Review All systems were reviewed & negative as marked: Yes - Review of Systems Constitutional: absent: Fevers, Night Sweats Eyes: absent: Vision Changes ENT: absent: Hearing Changes Respiratory: absent: SOB, Cough Cardiovascular: absent: Chest Pain Gastrointestinal: absent: Abdominal Pain Genitourinary Female: absent: Dysuria, Frequency Musculoskeletal: Other (Muscle spasms) Skin: absent: Rash Neurological: absent: Headache Endocrine: absent: Diaphoresis Hemo/Lymphatic: absent: Adenopathy Psychiatric: absent: Anxiety, Depression Physical Exam Vital Signs Reviewed: Yes Vital Signs Temp Pulse Resp BP Pulse Ox 06/28/17 14:26 71 18 148/61 97 06/28/17 12:54 75 18 155/65 H 97 06/28/17 11:31 79 18 158/69 H 97 06/28/17 10:52 98.2 F 88 16 165/72 H 97 Temperature: Afebrile Blood Pressure: Hypertensive Pulse: Regular Respiratory Rate: Normal Appearance: Positive for: Well-Appearing, Non-Toxic, Comfortable Pain Distress: None Mental Status: Positive for: Alert and Oriented X 3 Medical Decision Making ED Course and Treatment: 06/28/17 11:46 Impression: 66 year old female complaining of muscle spasms radiating down her left arm for a few days. Differential Diagnosis included but are not limited to: Cervical radiculopathy vs. Tendonitis of extensor of left thumb and first digit Plan: -- Cervical Spine CT w/o contrast -- Upper extremity Ultrasound -- Flexeril, Toradol, and Depo-Medrol -- Reassess and disposition Prior Visits: Notes and results from previous visits were reviewed. Patient was last seen in the emergency department on 04/08/17 for 2 day history of shortness of breath nasal congestion fever of 101 and chest pain with cough. Patient was admitted to hospitalist care for further evaluation. Progress Notes: 06/28/17 13:09 CT Cervical Spine without contrast: Creator : Gregor Salas MD FINDINGS: VERTEBRAE:No fracture. Normal alignment. No destructive bony lesion. DISCS/SPINAL CANAL/NEURAL FORAMINA: No significant central canal or neural foraminal stenosis. Disc degeneration at C5-6 and C6-7 PARASPINAL SOFT TISSUES:Unremarkable. OTHER FINDINGS:None. IMPRESSION: Disc degeneration at C5-6 and C6-7. No acute findings - Lab Interpretations I have reviewed the lab results: Yes - RAD Interpretation Radiology Orders: 06/28/17 11:36 CERVICAL SPINE W/O CONTRAST [CT] Stat DUPLEX UPPER EXTRM VEIN LEFT [US] Stat - Medication Orders Current Medication Orders: Discontinued Medications Cyclobenzaprine HCl (Flexeril) 10 mg PO STAT STA Stop: 06/28/17 11:37 Last Admin: 06/28/17 12:54 Dose: 10 mg Ketorolac Tromethamine (Toradol) 60 mg IM STAT STA Stop: 06/28/17 11:37 Last Admin: 06/28/17 12:54 Dose: 60 mg MAR Pain Assessment Document 06/28/17 12:54 GMD (Rec: 06/28/17 12:54 GMD [id number]) Pain Reassessment Is this a pain reassessment? No Presence of Pain Presence of Pain Yes IM Administration Charges Document 06/28/17 12:54 GMD (Rec: 06/28/17 12:54 GMD [id number]) Injection Site MAR Injection Site Left Deltoid Charges for Administration # of IM Administrations 1 Methylprednisolone Acetate (Depo-Medrol) 80 mg IM ONCE ONE Stop: 06/28/17 12:01 Last Admin: 06/28/17 13:15 Dose: 80 mg Comments: medication not scanning IM Administration Charges Document 06/28/17 13:15 GMD (Rec: 06/28/17 13:15 GMD [id number]) Injection Site MAR Injection Site Right Deltoid Charges for Administration # of IM Administrations 1 - Scribe Statement The provider has reviewed the documentation as recorded by the Maureenibjaelyn Forrester Provider Scribe Attestation: All medical record entries made by the Scribe were at my direction and personally dictated by me. I have reviewed the chart and agree that the record accurately reflects my personal performance of the history, physical exam, medical decision making, and the department course for this patient. I have also personally directed, reviewed, and agree with the discharge instructions and disposition. Disposition/Present on Arrival - Present on Arrival Any Indicators Present on Arrival: No History of DVT/PE: No History of Uncontrolled Diabetes: No Urinary Catheter: No History of Decub. Ulcer: No History Surgical Site Infection Following: None - Disposition Have Diagnosis and Disposition been Completed?: Yes Diagnosis: Cervical radiculopathy at C6 Disposition: HOME/ ROUTINE Disposition Time: 14:40 Patient Plan: Discharge Condition: GOOD Discharge Instructions (ExitCare): Radiculopathy (DC) Additional Instructions: Analilia- I am sorry this hurts so bad. Follow up with your doctor. Percocet is for bad bad pain only Motrin is for pain Flexeril is for spasm You have a pinched nerve in your neck Hope you feel better soon Best- Dr. Maximino Watt Forms: [employer] (Icelandic)
[2017-06-28] MEDS ORDERED: MethylPREDNISolone Depo 40 mg/ml (5 ml) Inj IM ONE (12:00)
--- NOTE | 2017-06-28 13:00 | CT ---
PROCEDURE: CT Cervical Spine without contrast HISTORY: Left arm radiculopathy COMPARISON: None available. TECHNIQUE: Axial computed tomography images were obtained of the cervical spine without the use of intravenous contrast. Coronal and sagittal reformatted images were created and reviewed. Radiation dose: Total exam DLP = 824 mGy-cm. This CT exam was performed using one or more of the following dose reduction techniques: Automated exposure control, adjustment of the mA and/or kV according to patient size, and/or use of iterative reconstruction technique. FINDINGS: VERTEBRAE: No fracture. Normal alignment. No destructive bony lesion. DISCS/SPINAL CANAL/NEURAL FORAMINA: No significant central canal or neural foraminal stenosis. Disc degeneration at C5-6 and C6-7 PARASPINAL SOFT TISSUES: Unremarkable. OTHER FINDINGS: None. IMPRESSION: Disc degeneration at C5-6 and C6-7. No acute findings
[2017-06-28 14:27] VITALS: BP 148/61; PULSE 71
--- NOTE | 2017-06-28 21:41 | US ---
PROCEDURE: Left upper extremity venous ultrasound HISTORY: Arm pain and swelling. Evaluate for deep venous thrombosis. PHYSICIAN(S): Tate Lindsey MD. FINDINGS: The visualized leftinternal jugular vein is sonographically normal and compressible. No evidence of obstruction or thrombus is seen. The visualized segments of the left subclavian vein are patent with normal waveforms. No sonographic evidence of obstruction or thrombosis is seen. The visualized deep venous system of the proximal leftupper extremity is sonographically normal and compressible. IMPRESSION: 1. No sonographic evidence for deep venous thrombosis in the visualized segments of the left upper extremity.
== END 2017-06-28 15:17 | disposition home or self-care (01) ==
LOC: ED 10:41
DX: M54.12 Radiculopathy, cervical region (principal); I10 Essential (primary) hypertension; Z87.891 Personal history of nicotine dependence
CPT/HCPCS: 72125; 93971; 96372; 99285; J1030; J1885

== ENCOUNTER 2017-11-11 11:22 | Emergency (ER) | payer MEDICARE, MEDICAID ==
[2017-11-11 11:26] VITALS: BMI 39.9
[2017-11-11] MEDS ORDERED: Alum-Mag Hydrox-Simethicone Susp (30 mL) PO STA (11:44)
[2017-11-11] MEDS ORDERED: Sodium Chloride 0.9% 1,000 ML IV STA (11:44)
[2017-11-11] MEDS ORDERED: Atrop/Hyosc/Scopal/PB Elixir (120 ml) PO STA (11:44)
--- NOTE | 2017-11-11 11:58 | ED PDOC ---
Arrival/HPI - General Chief Complaint: GI Problem Time Seen by Provider: 11/11/17 11:34 Historian: Patient - History of Present Illness Narrative History of Present Illness (Text): 11/11/17 11:51 66 year old female, with past medical history of GERD, asthma, and hypertension , presents to the emergency department complaining of radiating epigastric pain since 1 week. Patient informs associated nausea and decreased appetite since onset, prompting her to present to the ED for medical evaluation. Patient states she has had an endoscopy 2 years ago, and was placed on omperazole, which she takes periodically. Patient additionally informs having colonoscopy performed 1 year ago but does not recall the findings. Patient denies any chest pain, shortness of breath, fever, chills, vomiting, diarrhea, headache, or any other complaints. PMD: Dr. Gaviria Time/Duration: 1 week Symptom Onset: Gradual Symptom Course: Unchanged Quality: Burning Activities at Onset: Light Context: Home Past Medical History - Provider Review Nursing Documentation Reviewed: Yes - Infectious Disease Hx of Infectious Diseases: None - Tetanus Immunization Tetanus Immunization: Unknown - Cardiac Hx Cardiac Disorders: Yes Hx Angina: (chest pain) Hx Hypertension: Yes - Pulmonary Hx Respiratory Disorders: Yes Hx Asthma: Yes - Neurological Hx Neurological Disorder: No - HEENT Hx Cataracts: Yes Hx Difficulty Chewing: No - Renal Hx Renal Disorder: No - Endocrine/Metabolic Hx Endocrine Disorders: No - Hematological/Oncological Hx Blood Disorders: No - Integumentary Hx Dermatological Disorder: No - Musculoskeletal/Rheumatological Hx Musculoskeletal Disorders: Yes Hx Arthritis: Yes Other/Comment: L SHOULDER PAIN - Gastrointestinal Hx Gastrointestinal Disorders: Yes Hx Diverticulitis: Yes Hx Gastritis: Yes Hx Gastroesophageal Reflux: Yes - Genitourinary/Gynecological Hx Genitourinary Disorders: No - Psychiatric Hx Psychophysiologic Disorder: No Hx Substance Use: No - Past Surgical History Past Surgical History: No Previous - Surgical History Hx Dilation and Curettage: Yes Other/Comment: Colonoscopy. Cataract surgery - Anesthesia Hx Anesthesia: Yes - Suicidal Assessment Feels Threatened In Home Enviroment: No Family/Social History - Physician Review Nursing Documentation Reviewed: Yes Family/Social History: No Known Family HX Smoking Status: Former Smoker Hx Alcohol Use: No Hx Substance Use: No Hx Substance Use Treatment: No Allergies/Home Meds Allergies/Adverse Reactions: Allergies peanut Allergy (Verified 06/28/17 10:45) RASH Penicillins Allergy (Verified 06/28/17 10:45) RASH peanuts Allergy (Uncoded 06/28/17 10:45) ITCHING Home Medications: Home Meds Medication Instructions Recorded Confirmed Budesonide/Formoterol Fumarate 2 puff IH BID 08/27/11 11/11/17 [Symbicort 80-4.5 Mcg Inhaler] Linaclotide [Linzess] 145 mcg PO DAILY PRN 10/16/16 11/11/17 Valsartan [Diovan] 160 mg PO DAILY 01/13/17 11/11/17 Mometasone Furoate [Asmanex Hfa] 2 puff NEB BID 06/28/17 11/11/17 Albuterol HFA [Ventolin HFA 90 1 puff IH QID PRN 11/11/17 11/11/17 mcg/actuation (8 g)] Esomeprazole Magnesium [Nexium] 1 cap PO DAILY 11/11/17 11/11/17 Review of Systems - Physician Review All systems were reviewed & negative as marked: Yes - Review of Systems Constitutional: absent: Fevers, Night Sweats Respiratory: absent: SOB Cardiovascular: absent: Chest Pain Gastrointestinal: Abdominal Pain (epigastric pain), Nausea, Appetite Changes ( Has been unable to eat regularly since onset of symptoms). absent: Diarrhea, Vomiting Neurological: absent: Headache Physical Exam Vital Signs Reviewed: Yes Vital Signs Temp Pulse Resp BP Pulse Ox 11/11/17 14:48 100 11/11/17 14:46 98.3 F 78 17 156/82 H 100 11/11/17 13:38 80 18 159/84 H 100 11/11/17 12:00 160/85 H 11/11/17 11:30 98.2 F 82 18 182/79 H 95 Temperature: Afebrile Blood Pressure: Hypertensive Pulse: Regular Respiratory Rate: Normal Appearance: Positive for: Well-Appearing, Non-Toxic, Comfortable, Other (Obese) Pain Distress: None Mental Status: Positive for: Alert and Oriented X 3 - Systems Exam Head: Present: Atraumatic, Normocephalic Pupils: Present: PERRL Extroacular Muscles: Present: EOMI Conjunctiva: Present: Normal Mouth: Present: Moist Mucous Membranes Neck: Present: Normal Range of Motion Respiratory/Chest: Present: Clear to Auscultation, Good Air Exchange. No: Respiratory Distress, Accessory Muscle Use Cardiovascular: Present: Regular Rate and Rhythm, Normal S1, S2. No: Murmurs Abdomen: Present: Tenderness (Mild epigastric tenderness). No: Distention, Peritoneal Signs Upper Extremity: Present: Normal Inspection. No: Cyanosis, Edema Lower Extremity: Present: Normal Inspection. No: Edema Neurological: Present: GCS=15, CN II-XII Intact, Speech Normal Skin: Present: Warm, Dry, Normal Color. No: Rashes Psychiatric: Present: Alert, Oriented x 3, Normal Insight, Normal Concentration Medical Decision Making ED Course and Treatment: 11/11/17 11:44 Impression: 66 year old female, presents to the emergency department for epigastric pain. Plan: --EKG --Abdominal US --Labs --Maalox Plus -- Elixir --Pepcid --Lidocaine --Zofran --Reassess and disposition Prior Visits: Notes and results from previous visits were reviewed. Progress Notes: - Lab Interpretations Lab Results: 11/11/17 12:33 11/11/17 12:33 Lab Results 11/11/17 12:33: Sodium 142, Potassium 3.4 L, Chloride 104, Carbon Dioxide 30, Anion Gap 11, BUN 11, Creatinine 0.5 L, Est GFR ( Amer) > 60, Est GFR ( Non-Af Amer) > 60, Random Glucose 87, Calcium 9.6, Magnesium 1.7, Total Bilirubin 0.5, AST 32, ALT 45, Alkaline Phosphatase 108, Lactate Dehydrogenase 663, Total Creatine Kinase 327 H, CK-MB (CK-2) 3.3, CK-MB (CK-2) % Cancelled, Troponin I < 0.01, Total Protein 6.9, Albumin 4.0, Globulin 3.0, Albumin/ Globulin Ratio 1.3, Amylase 85, Lipase 30 11/11/17 12:33: WBC 11.1 H D, RBC 4.23, Hgb 12.7, Hct 38.8, MCV 91.7, MCH 30.0, MCHC 32.7, RDW 14.1, Plt Count 295, MPV 10.3, Gran % 57.5, Lymph % (Auto) 32.7, [place] % (Auto) 7.8 H, Eos % (Auto) 1.6, Baso % (Auto) 0.4, Gran # 6.38, Lymph # ( Auto) 3.6 H, [place] # (Auto) 0.9 H, Eos # (Auto) 0.2, Baso # (Auto) 0.04 - RAD Interpretation Narrative RAD Interpretations (Text): 11/11/17 14:27 Abdominal Ultrasound reviewed by radiologist, shows: Unremarkable abdominal sonogram.No significant interval change compared to the prior examination(s). Radiology Orders: 11/11/17 11:45 ABDOMEN COMPLETE [US] Stat Assembler [employer]: Radiologist - EKG Interpretation EKG Interpretation (Text): 11/11/17 12:05 EKG: Ordered, reviewed, and independently interpreted the EKG. Rate : 81 BPM Rhythm : NSR Interpretation : No ST-segment elevations or depressions, no T-wave inversions, normal intervals. Interpreted by ED Physician: Yes Type: 12 lead EKG - Medication Orders Current Medication Orders: Discontinued Medications Al Hydrox/Mg Hydrox/Simethicone (Maalox Plus 30 Ml) 30 ml PO STAT STA Stop: 11/11/17 11:45 Last Admin: 11/11/17 12:04 Dose: 30 ml Belladonna/Phenobarbital ( Elixir) 10 ml PO STAT STA Stop: 11/11/17 11:45 Last Admin: 11/11/17 13:08 Dose: 10 ml Famotidine (Pepcid) 20 mg IVP STAT STA Stop: 11/11/17 11:45 Last Admin: 11/11/17 12:04 Dose: 20 mg IVP Administration Document 11/11/17 12:04 SF (Rec: 11/11/17 12:04 SF [facility] [id number]) Charges for Administration # of IVP Administrations 1 Hydrochlorothiazide (Hydrodiuril) 25 mg PO STAT STA Stop: 11/11/17 12:22 Last Admin: 11/11/17 13:42 Dose: Sodium Chloride (Sodium Chloride 0.9%) 1,000 mls @ 100 mls/hr IV .Q10H STA Stop: 11/11/17 21:43 Last Admin: 11/11/17 12:04 Dose: 100 mls/hr eMAR Start Stop Document 11/11/17 12:04 SF (Rec: 11/11/17 12:04 SF [place] [facility] [id number]) Intravenous Solution Start Date 11/11/17 Start Time 12:04 Lidocaine HCl (Lidocaine 2% Viscous) 10 ml MM STAT STA Stop: 11/11/17 11:45 Last Admin: 11/11/17 12:04 Dose: 10 ml Ondansetron HCl (Zofran Inj) 4 mg IVP STAT STA Stop: 11/11/17 11:45 Last Admin: 11/11/17 12:04 Dose: 4 mg IVP Administration Document 11/11/17 12:04 SF (Rec: 11/11/17 12:04 SF [place] [facility] [id number]) Charges for Administration # of IVP Administrations 1 - Scribe Statement The provider has reviewed the documentation as recorded by the Scribe Tate Bennett, training with Juli All medical record entries made by the Scribe were at my direction and personally dictated by me. I have reviewed the chart and agree that the record accurately reflects my personal performance of the history, physical exam, medical decision making, and the department course for this patient. I have also personally directed, reviewed, and agree with the discharge instructions and disposition. Disposition/Present on Arrival - Present on Arrival Any Indicators Present on Arrival: No History of DVT/PE: No History of Uncontrolled Diabetes: No Urinary Catheter: No History of Decub. Ulcer: No History Surgical Site Infection Following: None - Disposition Have Diagnosis and Disposition been Completed?: Yes Diagnosis: Gastritis Disposition: HOME/ ROUTINE Disposition Time: 14:20 Condition: IMPROVED Discharge Instructions (ExitCare): Gastritis (DC) Additional Instructions: JESICA WHITE, thank you for letting us take care of you today. The emergency medical care you received today was directed at your acute symptoms. If you were prescribed any medication, please fill it and take as directed. It may take several days for your symptoms to resolve. Return to the Emergency Department if your symptoms worsen, do not improve, or if you have any other problems. Please contact your doctor or call one of the physicians/clinics you have been referred to that are listed on the Patient Visit Information form that is included in your discharge packet. Bring any paperwork you were given at discharge with you along with any medications you are taking to your follow up visit. Our treatment cannot replace ongoing medical care by a primary care provider outside of the emergency department. Thank you for allowing the [facility] team to be part of your care today. Take all your medication as prescribed. Follow up with your primary doctor in 3-4 days for re-evaluation and further management. Prescriptions: Ranitidine HCl [Zantac] 150 mg PO BID #20 tablet Referrals: Meet Gaviria MD [Primary Care Provider] - Follow up with primary Forms: [employer] (Czech)
[2017-11-11 12:59] LABS: ALB/GLOB RATIO 1.3 (1.1-1.8); ALT/SGPT 45 U/L (7-56); AMYLASE 85 U/L (35-125); AST/SGOT 32 U/L (14-36); BLOOD UREA NITROGEN 11 mg/dL (7-21); CALCIUM 9.6 mg/dL (8.4-10.5); GFR AFRICAN-AMERICAN > 60; GFR NON-AFRICAN AMERICAN > 60; LIPASE 30 U/L (23-300)
[2017-11-11 13:02] LABS: BASO # 0.04 K/mm3 (0.0-2.0); BASO % 0.4 % (0.0-3.0); EOS # 0.2 (0.0-0.7); EOS % 1.6 % (1.5-5.0); GRAN # 6.38 (1.4-6.5); GRAN % 57.5 % (50.0-68.0); HEMOGLOBIN 12.7 g/dL (12.0-16.0); LYMPH # 3.6 (1.2-3.4); LYMPH % 32.7 % (22.0-35.0); MEAN CELL VOLUME 91.7 fl (80.0-105.0); MEAN CORPUSCULAR HGB CONC 32.7 g/dl (31.0-37.0); MEAN PLATELET VOLUME 10.3 fl (7.0-11.0); MONO # 0.9 (0.1-0.6); MONO % 7.8 % (1.0-6.0); RBC 4.23 10^6/uL (3.5-6.1); RED CELL DISTRIBUTION WIDTH 14.1 % (11.5-14.5); WHITE BLOOD COUNT 11.1 10^3/ul (4.5-11.0)
[2017-11-11 13:40] VITALS: O2SAT 100
[2017-11-11 13:41] LABS: CK-MB 3.3 ng/mL (0.0-3.6); TROPONIN I < 0.01 ng/mL
--- NOTE | 2017-11-11 14:23 | US ---
Date of service: 11/11/2017 HISTORY: epigastric/RUQ tenderness COMPARISON: 11/12/2016 abdominal ultrasound. TECHNIQUE: Sonographic evaluation of the abdomen. FINDINGS: LIVER: Measures 16.0 cm. Patent portal vein. Portal venous flow: Hepatopetal. Unremarkable echogenicity of the liver parenchyma. No mass. No intrahepatic bile duct dilatation. GALLBLADDER: Unremarkable. No gallstones. COMMON BILE DUCT: Measures 4.2 mm. No stones. No dilatation. PANCREAS: Unremarkable as visualized. No mass. No ductal dilatation. RIGHT KIDNEY: Measures 5.4 x 10.1cm. Normal echogenicity. No calculus, mass, or hydronephrosis. LEFT KIDNEY: Measures 6.3 x 11.1cm. Normal echogenicity. No calculus, mass, or hydronephrosis. SPLEEN: Normal in size and contour. No mass. AORTA: No aneurysmal dilatation. IVC: Unremarkable. OTHER FINDINGS: None. IMPRESSION: Unremarkable abdominal sonogram.No significant interval change compared to the prior examination(s).
[2017-11-11 14:48] VITALS: BP 156/82; PULSE 78; RESP 17; TEMP 98.3
--- NOTE | 2017-11-11 16:37 | CARD ---
APPROVED REPORT Date of service: 11/11/2017 EKG Measurement Heart [id number] <Conclusion> Normal sinus rhythm Normal ECG
== END 2017-11-11 14:48 | disposition home or self-care (01) ==
LOC: ED 11:22
DX: K29.70 Gastritis, unspecified, without bleeding (principal); I10 Essential (primary) hypertension; Z87.891 Personal history of nicotine dependence
CPT/HCPCS: 76700; 80053; 82150; 82550; 82553; 83615; 83690; 83735; 84484; 85025; 93005; 96374; 96375; 99285; J2405; J7030

== ENCOUNTER 2017-12-10 10:16 | Observation (INO) | payer MEDICARE, MEDICAID ==
--- NOTE | 2017-12-10 10:46 | ED PDOC ---
Arrival/HPI - General Chief Complaint: Chest Pain Time Seen by Provider: 12/10/17 10:29 Historian: Patient - History of Present Illness Narrative History of Present Illness (Text): 12/10/17 10:41 67 year old female, with a past medical history that includes asthma, hypertension, and GERD, presents with left sided chest discomfort, since 1 week. Patient states she has a mild cough and some thick white sputum lately. Patient denies increased use of her inhaler. Patient states she does not need an inhaler or steroids. Patient denies any fever, chills, headache, dizziness, shortness of breath, abdominal pain, nausea, vomiting, diarrhea, back pain, neck pain, urinary/bowel changes, or any other complaint. Time/Duration: 1 week Symptom Onset: Gradual Symptom Course: Unchanged Quality: Other (chest discomfort) Activities at Onset: Light Past Medical History - Provider Review Nursing Documentation Reviewed: Yes - Infectious Disease Hx of Infectious Diseases: None - Tetanus Immunization Tetanus Immunization: Unknown - Reproductive Menopause: Yes - Cardiac Hx Cardiac Disorders: Yes Hx Hypertension: Yes - Pulmonary Hx Respiratory Disorders: Yes Hx Asthma: Yes - Neurological Hx Paralysis: No - HEENT Hx Cataracts: Yes Hx Difficulty Chewing: No - Renal Hx Renal Disorder: No - Endocrine/Metabolic Hx Endocrine Disorders: No - Hematological/Oncological Hx Blood Transfusions: No Hx Blood Transfusion Reaction: No - Integumentary Hx Dermatological Disorder: No - Musculoskeletal/Rheumatological Hx Musculoskeletal Disorders: Yes - Gastrointestinal Hx Gastrointestinal Disorders: Yes Hx Diverticulitis: Yes Hx Gastritis: Yes Hx Gastroesophageal Reflux: Yes - Genitourinary/Gynecological Hx Genitourinary Disorders: No - Psychiatric Hx Psychophysiologic Disorder: No Hx Substance Use: No - Past Surgical History Past Surgical History: No Previous - Surgical History Hx Dilation and Curettage: Yes Other/Comment: Colonoscopy. Cataract surgery - Anesthesia Hx Anesthesia Reactions: No - Suicidal Assessment Feels Threatened In Home Enviroment: No Family/Social History - Physician Review Nursing Documentation Reviewed: Yes Family/Social History: No Known Family HX Smoking Status: Former Smoker Hx Alcohol Use: No Hx Substance Use: No Hx Substance Use Treatment: No Allergies/Home Meds Allergies/Adverse Reactions: Allergies peanut Allergy (Verified 12/10/17 15:14) RASH Penicillins Allergy (Verified 12/10/17 15:14) RASH peanuts Allergy (Uncoded 12/10/17 15:14) ITCHING Home Medications: Home Meds Medication Instructions Recorded Confirmed Budesonide/Formoterol Fumarate 2 puff IH BID 08/27/11 12/10/17 [Symbicort 80-4.5 Mcg Inhaler] Linaclotide [Linzess] 145 mcg PO DAILY PRN 10/16/16 12/10/17 Valsartan [Diovan] 160 mg PO DAILY 01/13/17 12/10/17 Mometasone Furoate [Asmanex Hfa] 2 puff NEB BID 06/28/17 12/10/17 Albuterol HFA [Ventolin HFA 90 1 puff IH QID PRN 11/11/17 12/10/17 mcg/actuation (8 g)] Esomeprazole Magnesium [Nexium] 40 cap PO DAILY 11/11/17 12/10/17 predniSONE [predniSONE Tab] 10 mg PO PRN 12/07/17 12/10/17 Review of Systems - Physician Review All systems were reviewed & negative as marked: Yes - Review of Systems Constitutional: Normal. absent: Fevers, Night Sweats Eyes: Normal ENT: Normal Respiratory: Cough, Sputum. absent: SOB Cardiovascular: Chest Pain (Chatacterizes it as discomfort) Gastrointestinal: Normal. absent: Abdominal Pain, Diarrhea, Nausea, Vomiting Genitourinary Female: Normal Musculoskeletal: Normal. absent: Back Pain, Neck Pain Skin: Normal Neurological: Normal. absent: Headache, Dizziness Endocrine: Normal Hemo/Lymphatic: Normal Psychiatric: Normal Physical Exam Vital Signs Reviewed: Yes Vital Signs Temp Pulse Resp BP Pulse Ox 12/10/17 12:43 78 18 122/65 99 12/10/17 10:30 98 F 82 18 124/68 99 Temperature: Afebrile Blood Pressure: Normal Pulse: Regular Respiratory Rate: Normal Appearance: Positive for: Well-Appearing, Non-Toxic, Comfortable Pain Distress: None Mental Status: Positive for: Alert and Oriented X 3 - Systems Exam Head: Present: Atraumatic, Normocephalic Pupils: Present: PERRL Extroacular Muscles: Present: EOMI Conjunctiva: Present: Normal Mouth: Present: Moist Mucous Membranes Neck: Present: Normal Range of Motion Respiratory/Chest: Present: Wheezes (scattered wheezing). No: Respiratory Distress, Accessory Muscle Use Cardiovascular: Present: Regular Rate and Rhythm, Normal S1, S2. No: Murmurs Abdomen: No: Tenderness, Distention, Peritoneal Signs Back: Present: Normal Inspection Upper Extremity: Present: Normal Inspection. No: Cyanosis, Edema Lower Extremity: Present: Normal Inspection. No: Edema Neurological: Present: GCS=15, CN II-XII Intact, Speech Normal Skin: Present: Warm, Dry, Normal Color. No: Rashes Psychiatric: Present: Alert, Oriented x 3, Normal Insight, Normal Concentration Medical Decision Making ED Course and Treatment: 12/10/17 10:48 Impression: 67 year old female presents to the emergency department with chest discomfort. cp r/o acs, pneumonia Plan: -- EKG -- Labs -- Chest X-ray -- Urinalysis -- Protonix -- Reassess and disposition Prior Visits: Notes and results from previous visits were reviewed. Progress Notes: 12/10/17 11:12 Normal sinus rhythm @92 bpm Shows PVC 12/10/17 15:51 labs neg. atypical pain, however pt states "she prefers to be watched overnight ". case discussed with dr lyles team. accept for obs - Lab Interpretations Lab Results: 12/10/17 10:40 12/10/17 10:40 Lab Results 12/10/17 11:00: Urine Color Yellow, Urine Appearance Clear, Urine pH 6.0, Ur Specific Neptune >= 1.030, Urine Protein Negative, Urine Glucose (UA) Negative, Urine Ketones Negative, Urine Blood Negative, Urine Nitrate Negative, Urine Bilirubin Negative, Urine Urobilinogen 0.2, Ur Leukocyte Esterase Negative 12/10/17 10:40: Sodium 143, Potassium 3.5 L, Chloride 107, Carbon Dioxide 27, Anion Gap 12, BUN 8, Creatinine 0.6 L, Est GFR ( Amer) > 60, Est GFR (Non -Af Amer) > 60, Random Glucose 94, Calcium 9.1, Magnesium 1.8, Total Bilirubin 0.4, AST 29, ALT 32, Alkaline Phosphatase 101, Lactate Dehydrogenase 643, Total Creatine Kinase 194, Troponin I < 0.01, Total Protein 6.7, Albumin 3.8, Globulin 2.8, Albumin/Globulin Ratio 1.4 12/10/17 10:40: PT 12.3, INR 1.07, APTT 29.2 12/10/17 10:40: WBC 8.7 D, RBC 4.28, Hgb 12.9, Hct 40.2, MCV 93.9, MCH 30.1, MCHC 32.1, RDW 13.9, Plt Count 319, MPV 9.6, Gran % 50.9, Lymph % (Auto) 40.5 H , [place] % (Auto) 5.9, Eos % (Auto) 2.4, Baso % (Auto) 0.3, Gran # 4.40, Lymph # ( Auto) 3.5 H, [place] # (Auto) 0.5, Eos # (Auto) 0.2, Baso # (Auto) 0.03 - RAD Interpretation Radiology Orders: 12/10/17 10:37 CHEST PORTABLE [RAD] Stat - Medication Orders Current Medication Orders: Acetaminophen (Tylenol 325mg Tab) 650 mg PO Q6H PRN PRN Reason: Fever >100.4 F Losartan Potassium (Cozaar) 50 mg PO DAILY JOYCE Last Admin: 12/10/17 14:21 Dose: 50 mg MAR Pulse and Blood Pressure Document 12/10/17 14:21 CD (Rec: 12/10/17 14:21 CD [id number]) Pulse Pulse Rate (60-90) 85 Blood Pressure Blood Pressure (100/60-150/90) 180/79 Discontinued Medications Aspirin (Aspirin) 325 mg PO STAT STA Stop: 12/10/17 12:09 Last Admin: 12/10/17 14:16 Dose: Aspirin (Aspirin) 325 mg PO STAT STA Stop: 12/10/17 14:15 Last Admin: 12/10/17 14:20 Dose: 325 mg Pantoprazole Sodium (Protonix Inj) 40 mg IVP STAT STA Stop: 12/10/17 10:39 Last Admin: 12/10/17 10:57 Dose: 40 mg IVP Administration Document 12/10/17 10:57 SF (Rec: 12/10/17 10:57 SF [id number]) Charges for Administration # of IVP Administrations 1 - Scribe Statement The provider has reviewed the documentation as recorded by the Scribe Tate Bennett All medical record entries made by the Scribe were at my direction and personally dictated by me. I have reviewed the chart and agree that the record accurately reflects my personal performance of the history, physical exam, medical decision making, and the department course for this patient. I have also personally directed, reviewed, and agree with the discharge instructions and disposition. Disposition/Present on Arrival - Present on Arrival Any Indicators Present on Arrival: No History of DVT/PE: No History of Uncontrolled Diabetes: No Urinary Catheter: No History of Decub. Ulcer: No History Surgical Site Infection Following: None - Disposition Have Diagnosis and Disposition been Completed?: Yes Diagnosis: Chest pain, Abdominal pain Disposition: HOSPITALIZED Disposition Time: 02:00 Patient Problems: Current Active Problems Problem Status Onset Abdominal pain Acute Chest pain Acute Condition: STABLE
[2017-12-10 10:56] LABS: BASO # 0.03 K/mm3 (0.0-2.0); BASO % 0.3 % (0.0-3.0); EOS # 0.2 (0.0-0.7); EOS % 2.4 % (1.5-5.0); GRAN # 4.4 (1.4-6.5); GRAN % 50.9 % (50.0-68.0); HEMOGLOBIN 12.9 g/dL (12.0-16.0); LYMPH # 3.5 (1.2-3.4); LYMPH % 40.5 % (22.0-35.0); MEAN CELL VOLUME 93.9 fl (80.0-105.0); MEAN CORPUSCULAR HEMOGLOBIN 30.1 pg (25.0-35.0); MEAN CORPUSCULAR HGB CONC 32.1 g/dl (31.0-37.0); MEAN PLATELET VOLUME 9.6 fl (7.0-11.0); MONO # 0.5 (0.1-0.6); MONO % 5.9 % (1.0-6.0); RBC 4.28 10^6/uL (3.5-6.1); RED CELL DISTRIBUTION WIDTH 13.9 % (11.5-14.5); WHITE BLOOD COUNT 8.7 10^3/ul (4.5-11.0)
[2017-12-10 11:04] LABS: INR 1.07; PARTIAL THROMBOPLASTIN TIME 29.2 Seconds (25.1-36.5); PROTHROMBIN TIME 12.3 SECONDS (9.4-12.5)
[2017-12-10 11:13] LABS: ALB/GLOB RATIO 1.4 (1.1-1.8); ALBUMIN 3.8 g/dL (3.0-4.8); ALT/SGPT 32 U/L (7-56); AST/SGOT 29 U/L (14-36); BLOOD UREA NITROGEN 8 mg/dL (7-21); CALCIUM 9.1 mg/dL (8.4-10.5); GFR AFRICAN-AMERICAN > 60; GFR NON-AFRICAN AMERICAN > 60
[2017-12-10 11:21] LABS: URINE APPEARANCE CLEAR (CLEAR); URINE BILIRUBIN NEGATIVE (NEGATIVE); URINE BLOOD NEGATIVE (NEGATIVE); URINE COLOR YELLOW (YELLOW); URINE GLUCOSE (UA) NEGATIVE (NEGATIVE); URINE LEUKOCYTE ESTERASE NEGATIVE Leu/uL (NEGATIVE); URINE PROTEIN NEGATIVE mg/dL (<30 mg/dL); URINE UROBILINOGEN 0.2 E.U./dL (<1 E.U./dL)
[2017-12-10 11:22] LABS: TROPONIN I < 0.01 ng/mL
--- NOTE | 2017-12-10 11:27 | RAD ---
Date of service: 12/10/2017 HISTORY: cp/abd pain COMPARISON: 07/21/2017 FINDINGS: LUNGS: No active pulmonary disease. PLEURA: No significant pleural effusion identified, no pneumothorax apparent. CARDIOVASCULAR: Normal. OSSEOUS STRUCTURES: No significant abnormalities. VISUALIZED UPPER ABDOMEN: Normal. OTHER FINDINGS: None. IMPRESSION: No active disease.
[2017-12-10] MEDS ORDERED: Potassium Chloride 40 mEq/30 ml LIQ UD PO ONE (17:23)
[2017-12-10 17:42] VITALS: BMI 39.1
[2017-12-10] MEDS ORDERED: Pneumococcal 23-Valent Vaccine IM ONE (17:43)
--- NOTE | 2017-12-10 17:51 | CARD ---
APPROVED REPORT Date of service: 12/10/2017 EKG Measurement Heart [id number] <Conclusion> Sinus rhythm with occasional premature ventricular complexes Otherwise normal ECG
[2017-12-11] MEDS ORDERED: Albuterol 0.083% Inhal Sol (2.5 mg/3 mL) UD IH PRN (07:30)
--- NOTE | 2017-12-11 08:40 | CON ---
Copied To: Gera Garnica MD Attending MD: Gera Garnica MD DATE: 12/11/2017 CONSULTATION INDICATIONS: Chest pain, shortness of breath. HISTORY OF PRESENT ILLNESS: This is a 67-year-old woman with a history of asthma and hypertension admitted yesterday through the emergency room with mid epigastric discomfort radiating up into and across the chest, associated with cough and shortness of breath. She had similar symptoms in the past. She attributes these to gastrointestinal symptoms similar to GERD, but this time, the symptoms were more frequent, more long lasting and more severe. She feels better this morning. There is no chest pain currently. There is no shortness of breath at rest. There is no orthopnea, PND, syncope, presyncope, lightheadedness, dizziness or vertigo. There is no edema. She does have knee pains. There is no fever, chills, hemoptysis, abdominal pain, nausea, vomiting, diarrhea, constipation, melena. PAST MEDICAL HISTORY: Notable for asthma. She is on multiple medications and steroids. She has been under the care of Dr. Bradshaw and more recently Dr. Lerma. She has a history of hypertension, obesity, pneumonia and GERD. There is no history of rheumatic fever, myocardial infarction, angina, arrhythmia, CHF. In 2017, she underwent a cardiac evaluation. A nuclear stress test in 09/2016 revealed a normal perfusion study with an ejection fraction of 81%. An echocardiogram in 03/2017 revealed normal LV function, [id number] mitral regurgitation and mild tricuspid regurgitation, [id number] pulmonary hypertension. MEDICATIONS AT THE TIME OF ADMISSION: Include Asmanex, Diovan, Linzess, Nexium, Singulair, Symbicort, albuterol, prednisone. ALLERGIES: SHE NOTES ALLERGIES TO PENICILLIN AND PEANUTS. SOCIAL HISTORY: She does not smoke cigarettes. She not drink alcohol. She lives at home. She is ambulatory. FAMILY HISTORY: Notable for heart disease in her mother. REVIEW OF SYSTEMS: A 10-point review of systems otherwise unremarkable except as noted above. PHYSICAL EXAMINATION: GENERAL: She is a well-developed woman lying in bed on telemetry. in no acute distress. VITAL SIGNS: She has sinus rhythm at 74 beats per minute. She is afebrile. Blood pressure 140/70, respirations 18-20, O2 sat 95-96% on room air. HEENT: Reveals no neck vein distention, thyromegaly, carotid bruits. Mucous membranes moist. Conjunctiva pink. NECK: Supple. LUNGS: Lung wilde clear with a few scattered rhonchi. HEART: Revealed normal first and second heart sounds. There is a soft systolic murmur along the left sternal border. PMI is not palpable. ABDOMEN: Obese. Bowel sounds present. No mass, organomegaly, tenderness, rebound, guarding, CVA tenderness or palpable abdominal aortic aneurysm. EXTREMITIES: Revealed no cyanosis, clubbing or edema. NEUROLOGIC: Awake, alert and oriented. PSYCHIATRIC: Normal as to mood and affect. SKIN: Warm and dry. No rash or cellulitis. LABORATORY AND IMAGING STUDIES: EKG demonstrates regular sinus rhythm with APCs, poor R-wave progression, nonspecific ST wave changes. No change from a prior EKG. Chest x-ray revealed no active disease. Electrolytes were normal with potassium of 3.5, creatinine 0.6. LFTs and magnesium unremarkable. CK 194, 2 troponins are negative. Urinalysis is unremarkable. IMPRESSION: Analilia Parks is a 67-year-old woman with chronic asthma who presents with mid epigastric and chest discomfort. Her EKG was benign. Two troponins are negative. There has been no arrhythmia while on telemetry. At this time, I agree with current plans. She is getting her pulmonary medications. She got aspirin. She is getting losartan in place of Diovan and Protonix. Potassium has been replaced. I will repeat her EKG this morning. She will be treated for for asthma. Follow up with pulmonary would be helpful. She can be out of bed. A nuclear stress test can be arranged, probably as an outpatient basis unless chest pain recurs in the hospital. She should be considered for GI evaluation as well to rule out the possibility that her symptoms are related to gastrointestinal reflux or peptic ulcer disease possibly related to steroid therapy. I will follow along with you. I will make additional recommendations based on her clinical course. Gera Garnica MD C[facility]STIAN
[2017-12-11] MEDS ORDERED: Potassium Chloride 20 mEq ER Tab PO ONE (09:00)
--- NOTE | 2017-12-11 10:28 | CARD ---
APPROVED REPORT Date of service: 12/11/2017 EKG Measurement Heart [id number] <Conclusion> Normal sinus rhythm Normal ECG
--- NOTE | 2017-12-11 11:36 | CP.PCM.HP ---
<Laurita Deras - Last Filed: 12/11/17 11:58> History of Present Illness - History of Present Illness History of Present Illness: PGY-[address] Ibrahim Ms Parks, 67F, with asthma, HTN, hiatal hernia, GERD admitted yesterday for worsening of chest pain. She had mid-epigsatric discomfort raditing up and across chest for weeks but worsened for the past week. The pain was sharp, constant, worsened with acid taste in mouth with cough. In ED, her BP was 180/ 103, got clonidine x 1. ASA full dose. Denies orthopnea, lightheadedness, edema ROS (+) acid taste in mouth in AM with dry coughs. Good appetite. (+) wt loss about 50lbs in 2 years Denies f/c, dizziness, SOB at rest, N/V/D/C, dysuria, unusal stool color Nuclear stress test in 2017 revealed normal perfusion with EF 81. Echocardiogram in Mar 2017 showed normal EF, mid-mod mitral regurg, mid tricuspid regurg, and mid-mod pulm HTN EKG: NSR with APCs, poor R wave progression, non-specific ST wave changes, unchanged as compare to prior stdy CXR: No active disease PMH Asthma, seen Dr Bradshaw and more recentl with Dr Lerma HTN Morbid obesity Hiatal hernia GERD PSH D&C, Cataract surgery FH Heart disease in mother SH Former smoker. denies smoking, etoh, drug. live at home. ALL Penicillin and peanuts Med Reviewed Present on Admission - Present on Admission Any Indicators Present on Admission: No Past Patient History - Infectious Disease Hx of Infectious Diseases: None - Tetanus Immunizations Tetanus Immunization: Unknown - Past Social History Smoking Status: Former Smoker - CARDIAC Hx Cardiac Disorders: Yes Hx Hypertension: Yes - PULMONARY Hx Respiratory Disorders: Yes Hx Asthma: Yes Hx Chronic Obstructive Pulmonary Disease (COPD): Yes - NEUROLOGICAL Hx Neurological Disorder: No - HEENT Hx HEENT Problems: Yes Hx Cataracts: Yes Hx Difficulty Chewing: No Hx Glaucoma: Yes - RENAL Hx Chronic Kidney Disease: No - ENDOCRINE/METABOLIC Hx Endocrine Disorders: No - HEMATOLOGICAL/ONCOLOGICAL Hx Blood Disorders: No - INTEGUMENTARY Hx Dermatological Problems: No - MUSCULOSKELETAL/RHEUMATOLOGICAL Hx Musculoskeletal Disorders: Yes (CERVIAL RADICULOPATHY,TMJ,RIGHT TORN MENISCUS ) Hx Falls: Yes Hx Herniated Disk: Yes Hx Unsteady Gait: Yes - GASTROINTESTINAL Hx Gastrointestinal Disorders: Yes (GASTRITIS,CONSTIPATION,HIATAL HERNIA) Hx Diverticulitis: Yes Hx Gastroesophageal Reflux: Yes - GENITOURINARY/GYNECOLOGICAL Hx Genitourinary Disorders: Yes (MENOPAUSAL-VAGINAL DRYNESS,TUBAL LIGATION) - PSYCHIATRIC Hx Psychophysiologic Disorder: No Hx Substance Use: No - SURGICAL HISTORY Hx Surgeries: Yes (D&C) Other/Comment: Colonoscopy. Cataract surgery - ANESTHESIA Hx Anesthesia Reactions: No Meds Allergies/Adverse Reactions: Allergies Allergy/AdvReac Type Severity Reaction Status Date / Time peanut Allergy RASH Verified 12/10/17 15:14 Penicillins Allergy RASH Verified 12/10/17 15:14 peanuts Allergy ITCHING Uncoded 12/10/17 15:14 Physical Exam - Constitutional Appears: No Acute Distress - Head Exam Head Exam: ATRAUMATIC, NORMAL INSPECTION, NORMOCEPHALIC - Eye Exam Eye Exam: EOMI, Normal appearance, PERRL. absent: Scleral icterus Pupil Exam: NORMAL ACCOMODATION - ENT Exam ENT Exam: Mucous Membranes Moist - Neck Exam Additional comments: supple - Respiratory Exam Respiratory Exam: Decreased Breath Sounds (lung), Clear to Auscultation Bilateral, NORMAL BREATHING PATTERN. absent: Rales, Rhonchi, Wheezes - Cardiovascular Exam Cardiovascular Exam: REGULAR RHYTHM. absent: +S1, +S2, Systolic Murmur Additional comments: reproducible chest pain from mid distal neck to below xyphoid and aross mid chest lateral - GI/Abdominal Exam GI & Abdominal Exam: Normal Bowel Sounds, Soft. absent: Tenderness - Extremities Exam Extremities exam: Positive for: pedal pulses present. Negative for: calf tenderness - Back Exam Back exam: absent: CVA tenderness (L), CVA tenderness (R) - Neurological Exam Neurological exam: Alert, Oriented x3 - Psychiatric Exam Psychiatric exam: Normal Affect, Normal Mood - Skin Skin Exam: Dry, Warm Results - Vital Signs Recent Vital Signs: Last Vital Signs Temp 98.8 F 12/11/17 06:00 Pulse 77 12/11/17 06:00 Resp 77 H 12/11/17 06:00 BP 148/78 12/11/17 06:00 Pulse Ox 97 12/11/17 06:00 - Labs Result Diagrams: 12/10/17 10:40 12/10/17 10:40 Labs: Laboratory Results - last 24 hr 12/11/17 06:00 Troponin I < 0.01 Assessment & Plan - Assessment and Plan (Free Text) Plan: Chest pain r/o ACS - ASA. May add metoprolol if HTN not controlled - Telemetry - trops neg x 2 - serial EKG - Echocardiogram - Follow up with Dr Garnica for outpatient stress test if no new CP episode during hosp - OOB PRN, PT eval Possible atypical chest pain from upper GI source and hiatal hernia, possibly aggravated by steroid use - Pt will see Dr Jo to have EGD on 12/23. - GI consult to see if any plan to do inpatient scope severity of symptoms and weight loss in the past 2 years GERD - Avoid NSAID. Continue protonix. aspiration precaution HTN - Losartan Hx Asthma on occasional sterid - Continue Duoneb JOYCE and albuterol PRN - Follow up with pulmonary outpatient - continue ICS and montelukast Hypokalemia - repleted Penicillin and peanuts allergy s/r/d/w Dr Ibrahim <Main Ibrahim S - Last Filed: 12/11/17 18:31> Results - Vital Signs Recent Vital Signs: Last Vital Signs Temp 97.7 F 12/11/17 12:00 Pulse 77 12/11/17 12:00 Resp 18 12/11/17 12:00 BP 158/84 H 12/11/17 12:00 Pulse Ox 97 12/11/17 06:00 - Labs Result Diagrams: 12/10/17 10:40 12/10/17 10:40 Labs: Laboratory Results - last 24 hr 12/11/17 06:00 Troponin I < 0.01 Assessment & Plan - Assessment and Plan (Free Text) Plan: Pt seen and examined. I have reviewed the note of the medical secretary receptionist and agree with it. I have discussed the assessment and plan with the resident. I have reviewed the patient's labs and medications. Pt with a typical CP. Echo ordered. Pt will need cardio evaluation. Place on Duoneb. No need for steriods. Pt not wheezing. Pt may need stress test.
[2017-12-11] MEDS: Albuterol-Ipratrop 3 mg / 0.5 (3 ml) UD IH SCH ×3 (13:07→20:14)
[2017-12-11] MEDS: Mometasone 220 mcg/puff-14 puff Inh INH SCH ×2 (18:59→19:05)
[2017-12-11] MEDS: POLYETHYLENE GLYCOL 3350 17 GM/Dose PACKET PO SCH (19:00)
[2017-12-11 19:42] VITALS: RESP 20
--- NOTE | 2017-12-11 22:52 | CARD ---
APPROVED REPORT Date of service: 12/11/2017 EXAM: Two-dimensional and M-mode echocardiogram with Doppler and color Doppler. INDICATION CP 2D DIMENSIONS IVSd1.4 (0.7-1.1cm)LVDd4.3 (3.9-5.9cm) PWd1.4 (0.7-1.1cm)LVDs2.7 (2.5-4.0cm) FS (%) 36.2 %LVEF (%)66.2 (>50%) M-Mode DIMENSIONS Left Atrium (MM)4.50 (2.5-4.0cm)Aortic Root2.80 (2.2-3.7cm) Aortic Cusp Exc.1.90 (1.5-2.0cm) Aortic Valve AoV Peak Pxbclskp665.0cm/Dianna Peak GR.12mmHg Mitral Valve MV E Lhmifxmm954.0cm/sMV A Glbumvmm099.0cm/sE/A ratio0.9 TDI Lateral E' Peak V9.46cm/sMedial E' Peak V8.58cm/sE/Lateral E'14.0 E/Medial E'15.4 Tricuspid Valve TR Peak [id number]/sRAP [id number] Peak Gr.35mmHg [id number] LEFT VENTRICLE The left ventricle is normal size. There is borderline to mild concentric left ventricular hypertrophy. The left ventricular function is normal. EF-65% There is normal LV segmental wall motion. The left ventricular diastolic function is normal. No left ventricle thrombus noted on this study. There is no ventricular septal defect visualized. There is no left ventricular aneurysm. There is no mass noted in the left ventricle. RIGHT VENTRICLE The right ventricle is normal size. There is normal right ventricular wall thickness. The right ventricular systolic function is normal. ATRIA The left atrium is mildly dilated. The right atrium size is normal. The interatrial septum is intact with no evidence for an atrial septal defect. AORTIC VALVE The aortic valve is thickened but opens well. No aortic regurgitation is present. There is no aortic valvular stenosis. There is no aortic valvular vegetation. MITRAL VALVE The mitral valve is thickened but opens well. Mitral regurgitation is trace. There is no mitral valve stenosis. There is no evidence of mitral valve prolapse. TRICUSPID VALVE The tricuspid valve leaflets are thickened , but open well. There is mild tricuspid regurgitation.RVSP-45 mmof Hg. There is no tricuspid valve stenosis. There is no tricuspid valve prolapse or vegetation. PULMONIC VALVE The pulmonary valve is normal in structure. There is trace pulmonic valvular regurgitation. There is no pulmonic valvular stenosis. GREAT VESSELS The aortic root is normal in size. The ascending aorta is normal in size. The pulmonary artery is normal. The IVC is normal in size and collapses >50% with inspiration. PERICARDIAL EFFUSION There is no pleural effusion. There is no pericardial effusion. <Conclusion> The left ventricle is normal size. There is borderline to mild concentric left ventricular hypertrophy. The left ventricular function is normal. EF-65% Mitral regurgitation is trace. There is mild tricuspid regurgitation.RVSP-45 mmof Hg. There is trace pulmonic valvular regurgitation. The IVC is normal in size and collapses >50% with inspiration. There is no pericardial effusion. No vegetation noted.
[2017-12-12] MEDS: Pantoprazole 40 mg EC Tab PO SCH (05:26)
[2017-12-12] MEDS: Albuterol-Ipratrop 3 mg / 0.5 (3 ml) UD IH SCH ×3 (07:31→19:39)
--- NOTE | 2017-12-12 08:07 | CP.PCM.PN ---
Subjective - Date & Time of Evaluation Date of Evaluation: 12/12/17 Time of Evaluation: 07:00 - Subjective Subjective: Stable on 2R. No CP or SOB. V/S noted. RSR. PE: Lungs: rhonchi Cor.: S1S2 Abd.: soft Ext.: no edema N euro.: alert ECG 12/11: RSR. PRWP. No acute changes Trops X 2 Neg. Objective - Vital Signs/Intake and Output Vital Signs (last 24 hours): Temp Pulse Resp BP Pulse Ox 97.6 F 86 20 162/94 H 99 12/12/17 06:00 12/12/17 06:00 12/12/17 06:00 12/12/17 06:00 12/12/17 06:00 Intake and Output: 12/12/17 12/12/17 06:59 18:59 Intake Total 1260 Output Total 0 Balance 1260 - Medications Medications: Current Medications Acetaminophen (Tylenol 325mg Tab) 650 mg PO Q6H PRN PRN Reason: Fever >100.4 F Albuterol Sulfate (Albuterol 0.083% Inhal Ghislaine (2.5 Mg/3 Ml) Ud) 2.5 mg IH QIDRESP PRN PRN Reason: Wheezing Albuterol/Ipratropium (Duoneb 3 Mg/0.5 Mg (3 Ml) Ud) 3 ml IH TIDRESP [facility] Last Admin: 12/12/17 07:31 Dose: 3 ml Aspirin (Ecotrin) 81 mg PO DAILY [facility] Losartan Potassium (Cozaar) 100 mg PO DAILY [facility] Last Admin: 12/11/17 09:50 Dose: 100 mg Mometasone Furoate (Asmanex Twisthaler 220 Mcg) 2 puff INH BID [facility] Last Admin: 12/11/17 19:05 Dose: Not Given Montelukast Sodium (Singulair) 10 mg PO DAILY [facility] Pantoprazole Sodium (Protonix Ec Tab) 40 mg PO 0600 [facility] Last Admin: 12/12/17 05:26 Dose: 40 mg Polyethylene Glycol (Miralax) 17 gm PO BID [facility] Last Admin: 12/11/17 19:00 Dose: 17 gm - Labs Labs: PT 12.3 SECONDS (9.4-12.5) 12/10/17 10:40 INR 1.07 12/10/17 10:40 APTT 29.2 Seconds (25.1-36.5) 12/10/17 10:40 Assessment and Plan - Assessment and Plan (Free Text) Assessment: Chest Pain/ARON/Dyspnea HBP GERD Asthma Obesity H/O pneumonia Echo: Normal LV fx. Plan: OOB Nuclear stress test in AM Add Nifedipine ER 30/day Will follow. May need GI evaluation as out-pt. Pulm. f/u as out-pt. Diet and wt. loss.
[2017-12-12 08:12] LABS: BLOOD UREA NITROGEN 8 mg/dL (7-21); CALCIUM 9.4 mg/dL (8.4-10.5); GFR AFRICAN-AMERICAN > 60; GFR NON-AFRICAN AMERICAN > 60
[2017-12-12] MEDS: Mometasone 220 mcg/puff-14 puff Inh INH SCH ×2 (11:02→17:37)
[2017-12-12] MEDS: NIFEdipine 30 mg ER Tab PO SCH (11:06)
--- NOTE | 2017-12-12 13:33 | PN ---
Copied To: Felix Jo MD Attending MD: Felix Jo MD DATE: 12/12/2017 SUBJECTIVE: The patient is sitting in bed comfortable. She denies any further chest pain. She admits to some mild nausea. She denies any further burning in her chest. PHYSICAL EXAMINATION: VITAL SIGNS: Reveal temperature of 97.6, blood pressure 162/94, heart rate of 86. HEENT: Reveals sclerae to be white. Conjunctivae pink. NECK: Supple. CHEST: Lungs are clear. HEART: Reveals a regular rate and rhythm. ABDOMEN: Obese, soft, nontender. EXTREMITIES: Show no edema. LABORATORY DATA: Reveals BUN of 8, creatinine 0.6. IMPRESSION: 1. Atypical chest pain. 2. Gastroesophageal reflux disease. RECOMMENDATIONS: 1. Continue PPI. 2. We will switch the patient from MiraLax to Colace for constipation as the patient states that the MiraLax gives her abdominal cramps. 3. Awaiting nuclear stress test in the morning. Felix Jo MD
--- NOTE | 2017-12-12 21:07 | PN ---
Copied To: Meet Gaviria MD Attending MD: Meet Gaviria MD DATE: 12/12/2017 SUBJECTIVE: A 67-year-old black female admitted to the hospital with chest pain, shortness of breath, exacerbation of asthma. Patient has had two troponins that were negative. She was seen in consultation by Dr. Garnica. Patient has continued to have some asthma. She will have a stress test in the morning. She has no further chest pain today. PHYSICAL EXAMINATION: CHEST: Clear to auscultation and percussion. HEART: Reveal sinus rhythm. EXTREMITIES: No cyanosis, clubbing, or edema. ABDOMEN: Obese, but benign. NEUROLOGICAL: Grossly intact. IMPRESSION: Nonspecific chest pain, exacerbation of asthma, history of hypertension. Meet Gaviria MD
[2017-12-13] MEDS: POLYETHYLENE GLYCOL 3350 17 GM/Dose PACKET PO SCH (01:32)
[2017-12-13] MEDS: Pantoprazole 40 mg EC Tab PO SCH (05:32)
[2017-12-13 06:13] VITALS: O2SAT 97
[2017-12-13] MEDS: Albuterol-Ipratrop 3 mg / 0.5 (3 ml) UD IH SCH ×2 (07:25→13:08)
--- NOTE | 2017-12-13 07:56 | CP.PCM.PN ---
Subjective - Date & Time of Evaluation Date of Evaluation: 12/13/17 Time of Evaluation: 07:00 - Subjective Subjective: Stable on 2R. No CP or SOB. V/S noted. RSR. PE: Lungs: rhonchi Cor.: S1S2 Abd.: soft Ext.: no edema N euro.: alert ECG 12/11: RSR. PRWP. No acute changes Trops X 2 Neg. Echo noted. Objective - Vital Signs/Intake and Output Vital Signs (last 24 hours): Temp Pulse Resp BP Pulse Ox 98.3 F 97 H 20 164/87 H 97 12/13/17 06:00 12/13/17 06:00 12/13/17 06:00 12/13/17 06:00 12/13/17 06:00 Intake and Output: 12/13/17 12/13/17 06:59 18:59 Intake Total 120 Output Total 0 Balance 120 - Medications Medications: Current Medications Acetaminophen (Tylenol 325mg Tab) 650 mg PO Q6H PRN PRN Reason: Fever >100.4 F Last Admin: 12/12/17 21:20 Dose: 650 mg Albuterol Sulfate (Albuterol 0.083% Inhal Ghislaine (2.5 Mg/3 Ml) Ud) 2.5 mg IH QIDRESP PRN PRN Reason: Wheezing Albuterol/Ipratropium (Duoneb 3 Mg/0.5 Mg (3 Ml) Ud) 3 ml IH TIDRESP [facility] Last Admin: 12/13/17 07:25 Dose: Not Given Aspirin (Ecotrin) 81 mg PO DAILY [facility] Last Admin: 12/12/17 11:06 Dose: 81 mg Docusate Sodium (Colace) 100 mg PO TID [facility] Last Admin: 12/12/17 17:37 Dose: Not Given Losartan Potassium (Cozaar) 100 mg PO DAILY [facility] Last Admin: 12/12/17 11:02 Dose: 100 mg Mometasone Furoate (Asmanex Twisthaler 220 Mcg) 2 puff INH BID [facility] Last Admin: 12/12/17 17:37 Dose: Not Given Montelukast Sodium (Singulair) 10 mg PO DAILY [facility] Last Admin: 12/12/17 11:02 Dose: 10 mg Nifedipine (Procardia Xl) 30 mg PO DAILY [facility] Last Admin: 12/12/17 11:06 Dose: 30 mg Pantoprazole Sodium (Protonix Ec Tab) 40 mg PO 0600 [facility] Last Admin: 12/13/17 05:32 Dose: Not Given - Labs Labs: 12/12/17 06:00 PT 12.3 SECONDS (9.4-12.5) 12/10/17 10:40 INR 1.07 12/10/17 10:40 APTT 29.2 Seconds (25.1-36.5) 12/10/17 10:40 Assessment and Plan - Assessment and Plan (Free Text) Assessment: Chest Pain/ARON/Dyspnea HBP GERD Asthma Obesity H/O pneumonia Echo: Normal LV fx. Plan: OOB Nuclear stress test today Continue Nifedipine ER 30/day. Titrate BP meds as out-pt. May need GI evaluation as out-pt. Pulm. f/u as out-pt. Diet (KRYSTIAN, bhavik restricted), wt. loss, increased physical activity.
--- NOTE | 2017-12-13 08:47 | CON ---
Copied To: Felix Jo MD Attending MD: Felix Jo MD DATE: 12/11/2017 REQUESTING PHYSICIAN: Meet Gaviria MD REASON FOR CONSULTATION: I have been asked to see this 67-year-old female with a history of asthma, longstanding GERD who comes to the hospital with atypical chest pain. She describes the chest pain as a pulling, tightness and burning sensation in her chest and throat. The patient is actually scheduled for an outpatient endoscopy in about 10 days. She came to the emergency room because of concern of coronary ischemia and her symptoms of chest pain. Her chest pain appears to have improved at this time. She also complains of some epigastric pain. She denies any nausea, vomiting, melena or rectal bleeding. PAST MEDICAL HISTORY: Notable for asthma, hypertension, GERD, pneumonia, and obesity. She also has a history of mitral regurgitation and jfkc-[id number] pulmonary hypertension. SOCIAL HISTORY: She denies cigarette smoking or alcohol use. FAMILY HISTORY: Noncontributory. REVIEW OF SYSTEMS: A 14-point review of systems is notable for substernal burning, chest pain, epigastric pain. PHYSICAL EXAMINATION: GENERAL: Obese female lying in bed in no acute distress. VITAL SIGNS: Reveal temperature of 97.7, blood pressure 158/84, heart rate of 77. Her BMI is 39.9. HEENT: Reveal sclerae to be white. Conjunctivae pink. NECK: Supple. CHEST: Lungs are clear. HEART: Reveals regular rate and rhythm. ABDOMEN: Obese, soft, nontender. No mass. EXTREMITIES: Show no edema. LABORATORY DATA: Reveal white blood cell count of 8.7, hemoglobin 12.9. Chemistries reveal potassium of 3.4, normal AST, ALT, alkaline phosphatase. IMPRESSION: A 67-year-old female with atypical chest pain. She is scheduled for an endoscopy as an outpatient. Her troponins are normal. RECOMMENDATIONS: Continue PPI. If cleared by Cardiology, the patient can be discharged home with outpatient followup. She is scheduled for an endoscopy in about 10 days. Felix Jo MD : 12/11/2017 12:55:03 [facility]
[2017-12-13] MEDS: NIFEdipine 30 mg ER Tab PO SCH (12:11)
[2017-12-13] MEDS: Mometasone 220 mcg/puff-14 puff Inh INH SCH ×2 (12:13→12:15)
[2017-12-13 12:15] VITALS: BP 180/105; PULSE 84; TEMP 97.8
--- NOTE | 2017-12-13 12:59 | PN ---
Copied To: Meet Gaviria MD Attending MD: Meet Gaviria MD DATE: 12/13/2017 A 67-year-old black female admitted to the hospital with history of asthma, chest pain. Admitted with chest pain, nonspecific. Bowel sounds are stable. Troponins are negative. Patient is having a stress test today. Her asthma is under better control. She is less short of breath. She has less cough. She is less dyspneic. She has no sputum production. She is afebrile today. Vital signs are stable. Patient will be having stress test. Blood pressure is 164/87. She will be discharged home. Her stress test is negative. Physical examination is unchanged. Meet Gaviria MD
--- NOTE | 2017-12-13 21:21 | CARD ---
APPROVED REPORT Date of service: 12/13/2017 Protocol: LEXISCAN Test Type: Lexiscan Sestamibi Stress Test Attending Physician: Dr. Gera Garnica Referring Physician: Dr. Meet Gaviria Test Indications: Chest Pain. Height:5 ft 5 in Weight:247lbs Medications: Tylenol, Duoneb, Aspirin, Cozaar, SIngualir, Nifedipine, Protonix Medical History: 67 y/o woman with chest pain, HBP and asthma. Target HR: 155 bpm Resting ECG: RSR Resting Heart Rate: 87 bpm Resting Blood Pressure: 170/90mmHg Submaximum (85%): 132 bpm PROCEDURE Pharmacologic stress testing was performed using 0.4mg per 5ml of regadenoson given intravenously over 7-10 seconds. POST EXERCISE Reason for Termination: Protocol completed Target HR: No Max HR: 99 bpm 80% of Maximum Predicted HR: 155 bpm Exercise duration: 05:19 min:sec, 0 Stage Exercise capacity: 1.0METs Max Blood Pressure: 170/90mmHg Blood Pressure response to exercise: Normal Heart Rate response to exercise: Normal Chest Pain: No, None Angina index: 0 Arrhythmia: No, None ST Change: No, None Deviation: 0 mm TEST SUMMARY [id number]/90.1. INFUSIONDOSE 101:000.00.01.0116/.1.00:25 Cathy inj over 10 sec., Myov inj. at 25 sec. INFUSIONDOSE 201:[id number]/80.0. INFUSIONDOSE 301:[id number]/80.0. INFUSIONDOSE 401:000.00.01.0107/.0. INFUSIONDOSE 501:000.00.01.094/.0. INFUSIONDOSE 600:190.00.01.099/.0. INTERPRETATION Stress EKG Conclusion: Lexiscan nuclear stress test which was negative for chest pain, ischemia and arrhythmia. Nuclear scans pending. Signed by Gera Garnica Electronically Approved: 12/13/2017 13:54:43 EXAM: Myocardial Perfusion REST/STRESS Stress Test Type: Pharmacologic Imaging Protocol Rest Spect myocardial perfusion imaging was performed in supine position 50 minutes following the injection of 10.9 mCi of Tc-99 Myoview. At peak stress, the patient was injected intravenously with 30.5mCi of Tc-99 tetrofosmin after an infusion time of 0 minutes and 10 seconds. Gated Stress Spect was performed 65 minutes after intravenous Tc-99 Myoview injection. The images were gated to evaluate regional wall motion and calculate ventricular ejection fraction.Images were reconstructed using backfilter projection method in short horizontal and verticle long axis. Spect slices were generated. LV Perfusion The quality of the study is suboptimal due to significant breast attenuation. The left ventricle is within normal limits in size. The right ventricle is unremarkable. The lung uptake is normal. The distribution of tracer reveals an area of moderately decreased perfusion involving distal anteroseptal wall on the stress study. The remainder of the LV myocardium is unremarkable. The rest myocardial perfusion study shows no significant change. Wall Motion Wall motion study shows good contractility of the left ventricle. LVEF = 71%. Conclusion 1. Probably normal SPECT myocardial perfusion study. 2. Fixed, distal anteroseptal / apical defect is most likely due to breast attenuation. 3. Normal gated wall motion of the left ventricle. 4. In comparison with the last study of 10/12/2016, there is no significant change.
--- NOTE | 2017-12-14 10:03 | DS ---
Copied To: Meet Gaviria MD Attending MD: Meet Gaviria MD HISTORY OF PRESENT ILLNESS: The patient is a 67-year-old black female with a history of obesity, hypertension, asthma, admitted to the hospital with noncardiac chest pain. The patient was had a stress test, which was negative. She also had exacerbation of asthma while in the hospital, was treated with bronchodilators and steroids. The patient eventually was able to be discharged home in improved condition. FINAL DISCHARGE DIAGNOSES: Noncardiac chest pain, exacerbation of asthma, history of obesity and hypertension. Meet Gaviria MD
== END 2017-12-13 14:31 | disposition home or self-care (01) ==
LOC: ED 10:16 → ERH 12:08 → 2RNO 13:21
PROVIDERS: ADMIT Internal Medicine; ATTEND Internal Medicine
DX: R07.89 Other chest pain (principal); J45.901 Unspecified asthma with (acute) exacerbation; I10 Essential (primary) hypertension; H40.9 Unspecified glaucoma; I08.1 Rheumatic disorders of both mitral and tricuspid valves; I27.20 Pulmonary hypertension, unspecified; E87.6 Hypokalemia; K21.9 Gastro-esophageal reflux disease without esophagitis; K44.9 Diaphragmatic hernia without obstruction or gangrene; K27.9 Peptic ulcer, site unspecified, unspecified as acute or chronic, without hemorrhage or perforation; K59.00 Constipation, unspecified; E66.01 Morbid (severe) obesity due to excess calories; Z68.41 Body mass index [BMI] 40.0-44.9, adult; Z82.49 Family history of ischemic heart disease and other diseases of the circulatory system; Z87.01 Personal history of pneumonia (recurrent); Z88.0 Allergy status to penicillin; Z87.891 Personal history of nicotine dependence; Z91.010 Allergy to peanuts
CPT/HCPCS: 36415; 71045; 78452; 80048; 80053; 81003; 82550; 83615; 83735; 84484; 85025; 85610; 85730; 93005; 93017; 93306; 94640; 96374; 99285; A9502; C9113; G0378; J3480

== ENCOUNTER 2017-12-23 06:32 | Day surgery (SDC) | payer MEDICARE, MEDICAID ==
[2017-12-23] MEDS ORDERED: Lidocaine 1% Inj (20ml) ONE ×2 (08:02→08:10)
[2017-12-23] MEDS ORDERED: Propofol 10 mg/ml Inj (20 ML) ONE (08:02)
[2017-12-23] MEDS ORDERED: Sodium Chloride 0.9% 1,000 ML IV SCH (08:30)
[2017-12-23 09:37] VITALS: TEMP 98.2
[2017-12-23 09:55] VITALS: BP 129/52; PULSE 86; RESP 18; O2SAT 98
== END 2017-12-23 10:03 | disposition home or self-care (01) ==
LOC: ENDO 06:32
PROVIDERS: ATTEND Specialist
DX: K21.9 Gastro-esophageal reflux disease without esophagitis (principal); K29.50 Unspecified chronic gastritis without bleeding; D3A.010 Benign carcinoid tumor of the duodenum; K44.9 Diaphragmatic hernia without obstruction or gangrene; R07.89 Other chest pain; J44.9 Chronic obstructive pulmonary disease, unspecified; E66.9 Obesity, unspecified
CPT/HCPCS: 43239; 88305; 88342; J2405; J2704; J7030; J7040

== ENCOUNTER 2018-01-31 14:50 | Emergency (ER) | payer MEDICARE, MEDICAID ==
[2018-01-31 14:50] VITALS: BMI 39.1
[2018-01-31 15:51] VITALS: RESP 18; O2SAT 100
[2018-01-31] MEDS ORDERED: Sodium Chloride 0.9% 1,000 ML IV STA (16:33)
--- NOTE | 2018-01-31 17:03 | RAD ---
Date of service: 01/31/2018 HISTORY: abdominal pain COMPARISON: 12/10/2017 FINDINGS: LUNGS: No active pulmonary disease. PLEURA: No significant pleural effusion identified, no pneumothorax apparent. CARDIOVASCULAR: Normal. OSSEOUS STRUCTURES: No significant abnormalities. VISUALIZED UPPER ABDOMEN: Normal. OTHER FINDINGS: None. IMPRESSION: No active disease.
--- NOTE | 2018-01-31 17:24 | ED PDOC ---
Arrival/HPI - General Chief Complaint: Abdominal Pain Time Seen by Provider: 01/31/18 14:58 Historian: Patient - History of Present Illness Narrative History of Present Illness (Text): 01/31/18 16:33 67 y/o F with past medical history of asthma, HTN, hiatal hernia, and GERD, presenting to the Emergency Department complaining of intermittent abdominal pain since 9 days. She reports worsening pain to the right side associated with nausea and decreased appetite, unimproved after taking Tylenol. Patient describes the pain as 10/10 in severity unchanged with movement. Patient reports having an endoscopy done in November 2017 with positive finding for small colon tumor which was subsequently removed with no complications. Patient denies any other associated symptoms. Patient denies any fever, chills, vomiting, diarrhea, chest pain, shortness of breath, neck pain, back pain, headache, dizziness or any other complaints. PMD: Dr. Gaviria Time/Duration: > week (9 days) Symptom Onset: Gradual Symptom Course: Unchanged Quality: Aching Activities at Onset: Light Context: Home Past Medical History - Provider Review Nursing Documentation Reviewed: Yes - Travel History Have you recently traveled outside [place] w/in the past 3 mons?: No - Infectious Disease Hx of Infectious Diseases: None - Tetanus Immunization Tetanus Immunization: Unknown - Reproductive Menopause: Yes - Cardiac Hx Pacemaker: No - Pulmonary Hx Respiratory Disorders: Yes Hx Asthma: Yes Hx Chronic Obstructive Pulmonary Disease (COPD): Yes - Neurological Hx Paralysis: No - HEENT Hx HEENT Disorder: Yes Hx Cataracts: Yes Hx Difficulty Chewing: No Hx Glaucoma: Yes - Renal Hx Renal Disorder: No - Endocrine/Metabolic Hx Endocrine Disorders: No - Hematological/Oncological Hx Blood Transfusions: No Hx Blood Transfusion Reaction: No - Integumentary Hx Dermatological Disorder: No - Musculoskeletal/Rheumatological Hx Musculoskeletal Disorders: Yes (CERVIAL RADICULOPATHY,TMJ,RIGHT TORN MENISCUS) - Gastrointestinal Hx Gastrointestinal Disorders: Yes (GASTRITIS,CONSTIPATION,HIATAL HERNIA) Hx Diverticulitis: Yes Hx Gastroesophageal Reflux: Yes - Genitourinary/Gynecological Hx Genitourinary Disorders: Yes (MENOPAUSAL-VAGINAL DRYNESS,TUBAL LIGATION) - Psychiatric Hx Emotional Abuse: No Hx Physical Abuse: No Hx Substance Use: No - Past Surgical History Past Surgical History: No Previous - Surgical History Other/Comment: Colonoscopy. Cataract surgery - Anesthesia Hx Anesthesia Reactions: No Hx Malignant Hyperthermia: No - Suicidal Assessment Feels Threatened In Home Enviroment: No Family/Social History - Physician Review Nursing Documentation Reviewed: Yes Family/Social History: No Known Family HX Smoking Status: Former Smoker Hx Alcohol Use: No Hx Substance Use: No Hx Substance Use Treatment: No Allergies/Home Meds Allergies/Adverse Reactions: Allergies peanut Allergy (Verified 01/31/18 15:26) RASH Penicillins Allergy (Verified 01/31/18 15:26) RASH peanuts Allergy (Uncoded 12/10/17 15:14) ITCHING Home Medications: Home Meds Medication Instructions Recorded Confirmed Budesonide/Formoterol Fumarate 2 puff IH BID 08/27/11 12/23/17 [Symbicort 80-4.5 Mcg Inhaler] Linaclotide [Linzess] 145 mcg PO DAILY PRN 10/16/16 12/10/17 Mometasone Furoate [Asmanex Hfa] 2 puff NEB BID 06/28/17 12/23/17 Albuterol HFA [Ventolin HFA 90 1 puff IH QID PRN 11/11/17 12/23/17 mcg/actuation (8 g)] Acetaminophen [Tylenol] 325 mg PO PRN PRN 12/23/17 12/23/17 Linzess 145 mcg PO MWF 12/23/17 12/23/17 Omeprazole Magnesium 40 mg PO DAILY 12/23/17 12/23/17 Prednisone 10 mg PO DAILY 12/23/17 12/23/17 Review of Systems - Physician Review All systems were reviewed & negative as marked: Yes - Review of Systems Constitutional: absent: Fevers Respiratory: absent: SOB, Cough Cardiovascular: absent: Chest Pain Gastrointestinal: Abdominal Pain, Nausea. absent: Diarrhea, Vomiting Musculoskeletal: absent: Back Pain, Neck Pain Neurological: absent: Headache, Dizziness Physical Exam Vital Signs Reviewed: Yes Vital Signs Temp Pulse Resp BP Pulse Ox 01/31/18 15:21 99.2 F 98 H 18 161/71 H 100 Temperature: Afebrile Blood Pressure: Hypertensive Pulse: Tachycardic Respiratory Rate: Normal Appearance: Positive for: Well-Appearing, Non-Toxic, Comfortable Pain Distress: None Mental Status: Positive for: Alert and Oriented X 3 - Systems Exam Head: Present: Atraumatic, Normocephalic Pupils: Present: PERRL Extroacular Muscles: Present: EOMI Conjunctiva: Present: Normal Mouth: Present: Moist Mucous Membranes Neck: Present: Normal Range of Motion Respiratory/Chest: Present: Clear to Auscultation, Good Air Exchange. No: Respiratory Distress, Accessory Muscle Use Cardiovascular: Present: Regular Rate and Rhythm, Normal S1, S2. No: Murmurs Abdomen: Present: Tenderness (tenderness to palpation to LUQ+LLQ), Distention (abdomen distended). No: Peritoneal Signs, Guarding (no active guarding) Back: Present: Normal Inspection Upper Extremity: Present: Normal Inspection. No: Cyanosis, Edema Lower Extremity: Present: Normal Inspection. No: Edema Neurological: Present: GCS=15, CN II-XII Intact, Speech Normal Skin: Present: Warm, Dry, Normal Color. No: Rashes Psychiatric: Present: Alert, Oriented x 3, Normal Insight, Normal Concentration Medical Decision Making ED Course and Treatment: 01/31/18 16:33 Impression: 67 year old female presents to the Emergency Department complaining abdominal pain, nausea and decreased appetite. Plan: -- CT of Abdomen/Pelvis -- EKG -- Labs -- Chest X-ray -- IV Fluids -- Zofran -- Urinalysis -- Reassess and disposition Prior Visits: Notes and results from previous visits were reviewed. Progress Notes: 01/31/18 15:03 Labs reviewed with no leukocytosis noted. Pending CT scan. 01/31/18 19:50 CT scan reveals enteritis. Patient made aware of findings and desires to go home. She is advised to take the PO antibiotics and follow up with Dr. Jo(GI) as well as her PCP. She is stable for discharge - RAD Interpretation Narrative RAD Interpretations (Text): 01/31/18 18:19 Chest X-ray reviewed by radiologist, shows: FINDINGS: LUNGS: No active pulmonary disease. PLEURA: No significant pleural effusion identified, no pneumothorax apparent. CARDIOVASCULAR: Normal. OSSEOUS STRUCTURES: No significant abnormalities. VISUALIZED UPPER ABDOMEN: Normal. OTHER FINDINGS: None. IMPRESSION: No active disease. Radiology Orders: 01/31/18 16:33 ABD & PELVIS IV CONTRAST ONLY [CT] Stat CHEST PORTABLE [RAD] Stat Time Clerk: Radiologist - Medication Orders Current Medication Orders: Sodium Chloride (Sodium Chloride 0.9%) 1,000 mls @ 100 mls/hr IV .Q10H STA Stop: 02/01/18 02:32 Discontinued Medications Ondansetron HCl (Zofran Inj) 4 mg IVP STAT STA Stop: 01/31/18 16:34 - Scribe Statement The provider has reviewed the documentation as recorded by the Scribe Juli Blandon. All medical record entries made by the Scribe were at my direction and personally dictated by me. I have reviewed the chart and agree that the record accurately reflects my personal performance of the history, physical exam, medical decision making, and the department course for this patient. I have also personally directed, reviewed, and agree with the discharge instructions and disposition. Disposition/Present on Arrival - Present on Arrival Any Indicators Present on Arrival: No History of DVT/PE: No History of Uncontrolled Diabetes: No Urinary Catheter: No History of Decub. Ulcer: No History Surgical Site Infection Following: CABG - Mediastinitis, None - Disposition Have Diagnosis and Disposition been Completed?: Yes Diagnosis: Enteritis Disposition: HOME/ ROUTINE Disposition Time: 21:02 Patient Plan: Discharge Condition: STABLE Discharge Instructions (ExitCare): Diarrhea in Adolescents and Adults Prescriptions: Ciprofloxacin [Cipro] 500 mg PO BID 10 Days #10 tab metroNIDAZOLE [Flagyl] 500 mg PO TID 10 Days #30 tab Ondansetron ODT [Zofran ODT] 4 mg PO PRN PRN #4 odt PRN Reason: Nausea/Vomiting Referrals: Meet Gaviria MD [Primary Care Provider] - Follow up with primary Felix Jo MD [Staff Provider] - Follow up with primary Forms: [employer] ([place])
[2018-01-31 17:38] LABS: ALB/GLOB RATIO 1.3 (1.1-1.8); ALBUMIN 4.2 g/dL (3.0-4.8); BLOOD UREA NITROGEN 5 mg/dL (7-21); CALCIUM 9.4 mg/dL (8.4-10.5); GFR NON-AFRICAN AMERICAN > 60; LIPASE 21 U/L (23-300)
[2018-01-31 17:49] LABS: TROPONIN I < 0.01 ng/mL
[2018-01-31 17:50] LABS: ALT/SGPT 30 U/L (7-56); AST/SGOT 40 U/L (14-36)
[2018-01-31 17:57] LABS: PH,URINE 5.5 (4.7-8.0); URINE BILIRUBIN NEGATIVE (NEGATIVE); URINE BLOOD NEGATIVE (NEGATIVE); URINE GLUCOSE (UA) NEGATIVE (NEGATIVE); URINE LEUKOCYTE ESTERASE TRACE Leu/uL (NEGATIVE); URINE PROTEIN NEGATIVE mg/dL (<30 mg/dL); URINE UROBILINOGEN 0.2 E.U./dL (<1 E.U./dL)
[2018-01-31 18:00] LABS: BASO # 0.02 K/mm3 (0.0-2.0); BASO % 0.2 % (0.0-3.0); EOS % 0.2 % (1.5-5.0); GRAN # 7.51 (1.4-6.5); GRAN % 83.1 % (50.0-68.0); HEMOGLOBIN 12.8 g/dL (12.0-16.0); LYMPH # 1.4 (1.2-3.4); LYMPH % 15.1 % (22.0-35.0); MEAN CELL VOLUME 91.3 fl (80.0-105.0); MEAN CORPUSCULAR HEMOGLOBIN 29.4 pg (25.0-35.0); MEAN CORPUSCULAR HGB CONC 32.2 g/dl (31.0-37.0); MONO # 0.1 (0.1-0.6); MONO % 1.4 % (1.0-6.0); RBC 4.36 10^6/uL (3.5-6.1); RED CELL DISTRIBUTION WIDTH 13.4 % (11.5-14.5); WHITE BLOOD COUNT 9.1 10^3/ul (4.5-11.0)
[2018-01-31 18:03] LABS: INR 1.04; PARTIAL THROMBOPLASTIN TIME 23.9 Seconds (25.1-36.5); PROTHROMBIN TIME 11.9 SECONDS (9.4-12.5); URINE APPEARANCE CLEAR (CLEAR); URINE COLOR YELLOW (YELLOW)
--- NOTE | 2018-01-31 18:30 | CARD ---
APPROVED REPORT Date of service: 01/31/2018 EKG Measurement Heart [id number] <Conclusion> Normal sinus rhythm Normal ECG
[2018-01-31] MEDS ORDERED: Morphine 4 mg/ml ISec IVP STA (21:01)
[2018-02-01 00:44] VITALS: BP 160/69; PULSE 92; TEMP 98.9
--- NOTE | 2018-02-01 10:37 | CT ---
Date of service: 01/31/2018 PROCEDURE: CT Abdomen and Pelvis with contrast HISTORY: abdominal pain COMPARISON: None. TECHNIQUE: Contrast dose: 150 cc of Omni 350 Radiation dose: Total exam DLP = 976 mGy-cm. This CT exam was performed using one or more of the following dose reduction techniques: Automated exposure control, adjustment of the mA and/or kV according to patient size, and/or use of iterative reconstruction technique. FINDINGS: LOWER THORAX: Unremarkable. LIVER: Unremarkable. No gross lesion or ductal dilatation. GALLBLADDER AND BILE DUCTS: Unremarkable. PANCREAS: Unremarkable. No gross lesion or ductal dilatation. SPLEEN: Unremarkable. ADRENALS: Unremarkable. No mass. KIDNEYS AND URETERS: Unremarkable. No hydronephrosis. No solid mass. VASCULATURE: Unremarkable. No aortic aneurysm. BOWEL: Unremarkable. No obstruction. No gross mural thickening. APPENDIX: Normal appendix. PERITONEUM: Unremarkable. No free fluid. No free air. LYMPH NODES: Unremarkable. No enlarged lymph nodes. BLADDER: Unremarkable. REPRODUCTIVE: Unremarkable. BONES: Multilevel disc degeneration OTHER FINDINGS: None. IMPRESSION: No acute intra-abdominal findings
== END 2018-01-31 22:00 | disposition home or self-care (01) ==
LOC: ED 14:50
DX: K52.9 Noninfective gastroenteritis and colitis, unspecified (principal); I10 Essential (primary) hypertension; Z87.891 Personal history of nicotine dependence
CPT/HCPCS: 71045; 74177; 80053; 81001; 83690; 84484; 85025; 85610; 85730; 87086; 93005; 96374; 96375; 99283; J1885; J2405; J7030; Q9967

== ENCOUNTER 2018-02-21 17:17 | Emergency (ER) | payer MEDICARE, MEDICAID ==
[2018-02-21 17:41] VITALS: RESP 18; TEMP 98.1; O2SAT 95; BMI 38.4
[2018-02-21] MEDS ORDERED: Sodium Chloride 0.9% 1,000 ML IV STA (17:52)
--- NOTE | 2018-02-21 18:06 | RAD ---
Date of service: 02/21/2018 HISTORY: abdominal pain COMPARISON: Chest radiograph dated 01/31/2018. FINDINGS: LUNGS: No active pulmonary disease. PLEURA: No significant pleural effusion identified, no pneumothorax apparent. CARDIOVASCULAR: Aortic atherosclerotic calcifications. Cardiomediastinal silhouette stably enlarged. OSSEOUS STRUCTURES: Unchanged. VISUALIZED UPPER ABDOMEN: Normal. OTHER FINDINGS: None. IMPRESSION: No active disease.
--- NOTE | 2018-02-21 18:45 | ED PDOC ---
Arrival/HPI - General Chief Complaint: Abdominal Pain Time Seen by Provider: 02/21/18 17:41 Historian: Patient - History of Present Illness Narrative History of Present Illness (Text): 02/21/18 18:39 67yo female with pmhx of COPD and GERD who present with complaint of epigastric pain x 6days. States she was seen here on 01/31/18 for abdominal pain and was discharged home with antibiotics for enteritis. states the pain resolved and then started 6days ago, after eating orange. Describes the pain as "discomfort and gassy" constant, without any relieving/exacerbating factors. states she feels bloated. Has been taking Prilosec without relieve. Denies nausea, vomiting, diarrhea, constipation, fever,chills, chest pain, SOB, diaphoresis, any other complaint. Past Medical History - Provider Review Nursing Documentation Reviewed: Yes - Infectious Disease Hx of Infectious Diseases: None - Tetanus Immunization Tetanus Immunization: Unknown - Cardiac Hx Cardiac Disorders: No - Pulmonary Hx Respiratory Disorders: Yes Hx Asthma: Yes Hx Chronic Obstructive Pulmonary Disease (COPD): Yes - Neurological Hx Neurological Disorder: No - HEENT Hx HEENT Disorder: Yes Hx Cataracts: Yes Hx Glaucoma: Yes - Renal Hx Renal Disorder: No - Endocrine/Metabolic Hx Endocrine Disorders: No - Hematological/Oncological Hx Blood Disorders: No - Integumentary Hx Dermatological Disorder: No - Musculoskeletal/Rheumatological Hx Musculoskeletal Disorders: Yes (CERVIAL RADICULOPATHY,TMJ,RIGHT TORN MENISCUS) - Gastrointestinal Hx Gastrointestinal Disorders: Yes (GASTRITIS,CONSTIPATION,HIATAL HERNIA) Hx Diverticulitis: Yes Hx Gastroesophageal Reflux: Yes - Genitourinary/Gynecological Hx Genitourinary Disorders: Yes (MENOPAUSAL-VAGINAL DRYNESS,TUBAL LIGATION) - Psychiatric Hx Psychophysiologic Disorder: No Hx Substance Use: No - Past Surgical History Past Surgical History: No Previous - Surgical History Other/Comment: Colonoscopy. Cataract surgery - Anesthesia Hx Anesthesia Reactions: No Hx Malignant Hyperthermia: No - Suicidal Assessment Feels Threatened In Home Enviroment: No Family/Social History - Physician Review Nursing Documentation Reviewed: Yes Family/Social History: Unknown Family HX Smoking Status: Former Smoker Hx Alcohol Use: No Hx Substance Use: No Hx Substance Use Treatment: No Allergies/Home Meds Allergies/Adverse Reactions: Allergies peanut Allergy (Verified 02/21/18 17:27) RASH Penicillins Allergy (Verified 02/21/18 17:27) RASH peanuts Allergy (Uncoded 02/21/18 17:27) ITCHING Home Medications: Home Meds Medication Instructions Recorded Confirmed Budesonide/Formoterol Fumarate 2 puff IH BID 08/27/11 02/21/18 [Symbicort 80-4.5 Mcg Inhaler] Mometasone Furoate [Asmanex Hfa] 2 puff NEB BID 06/28/17 02/21/18 Albuterol HFA [Ventolin HFA 90 1 puff IH QID PRN 11/11/17 02/21/18 mcg/actuation (8 g)] Acetaminophen [Tylenol] 325 mg PO PRN PRN 12/23/17 02/21/18 Linzess 145 mcg PO MWF 12/23/17 02/21/18 Prednisone 10 mg PO DAILY 12/23/17 02/21/18 Review of Systems - Physician Review All systems were reviewed & negative as marked: Yes - Review of Systems Constitutional: Normal Eyes: Normal ENT: Normal Respiratory: Normal Cardiovascular: Normal Gastrointestinal: Abdominal Pain. absent: Constipation, Diarrhea, Nausea, Vomiting, Hematochezia, Hematemesis Genitourinary Female: Normal Musculoskeletal: Normal Skin: Normal Neurological: Normal Endocrine: Normal Hemo/Lymphatic: Normal Psychiatric: Normal Physical Exam Vital Signs Reviewed: Yes Vital Signs Temp Pulse Resp BP Pulse Ox 02/21/18 17:27 98.1 F 91 H 18 179/79 H 95 Temperature: Afebrile Blood Pressure: Normal Pulse: Regular Respiratory Rate: Normal Appearance: Positive for: Well-Appearing, Non-Toxic, Comfortable Pain Distress: None Mental Status: Positive for: Alert and Oriented X 3 - Systems Exam Head: Present: Atraumatic, Normocephalic Pupils: Present: PERRL Extroacular Muscles: Present: EOMI Conjunctiva: Present: Normal Mouth: Present: Moist Mucous Membranes Neck: Present: Normal Range of Motion Respiratory/Chest: Present: Clear to Auscultation, Good Air Exchange. No: Respiratory Distress, Accessory Muscle Use Cardiovascular: Present: Regular Rate and Rhythm, Normal S1, S2. No: Murmurs Abdomen: Present: Distention (Secondary to body habitus), Other (soft). No: Tenderness, Normal Bowel Sounds (Hyperactive x4), Peritoneal Signs, Rebound, Guarding, McBurney's Point Tender, Rovsing's Sign Present Back: Present: Normal Inspection Upper Extremity: Present: Normal Inspection. No: Cyanosis, Edema Lower Extremity: Present: Normal Inspection. No: Edema Neurological: Present: GCS=15, CN II-XII Intact, Speech Normal Skin: Present: Warm, Dry, Normal Color. No: Rashes Psychiatric: Present: Alert, Oriented x 3, Normal Insight, Normal Concentration Medical Decision Making ED Course and Treatment: 02/22/18 23:32 PT presented for stated history. Lab was ordered and reviewed all unremarkable Pt was treated with medication in ED and on re evaluation she reported resolution of her pain. Her symptoms likely secondary to gastritis Result was DW the pt She was DC home with Bentyl She have a GI and was advised to f/u with the GI TRT ED for any new symptoms - RAD Interpretation Radiology Orders: 02/21/18 17:44 CHEST PORTABLE [RAD] Stat - Medication Orders Current Medication Orders: Sodium Chloride (Sodium Chloride 0.9%) 1,000 mls @ 100 mls/hr IV .Q10H STA Stop: 02/22/18 03:51 Last Admin: 02/21/18 18:18 Dose: 100 mls/hr eMAR Start Stop Document 02/21/18 18:18 HI (Rec: 02/21/18 18:18 HI [id number]) Intravenous Solution Start Date 02/21/18 Start Time 18:18 Discontinued Medications Famotidine (Pepcid) 20 mg IVP STAT STA Stop: 02/21/18 18:25 Disposition/Present on Arrival - Present on Arrival Any Indicators Present on Arrival: No History of DVT/PE: No History of Uncontrolled Diabetes: No Urinary Catheter: No History of Decub. Ulcer: No History Surgical Site Infection Following: CABG - Mediastinitis, None - Disposition Have Diagnosis and Disposition been Completed?: Yes Diagnosis: Abdominal pain Disposition: HOME/ ROUTINE Disposition Time: 21:20 Patient Plan: Discharge Condition: STABLE Discharge Instructions (ExitCare): Gastritis, Acute Abdomen (Belly Pain), Adult (DC) Additional Instructions: Follow up with your doctor/Putty Worker Return to ED for any new or worsening symptoms Prescriptions: Dicyclomine [Bentyl] 20 mg PO BID #10 tab Referrals: Meet Gaviria MD [Primary Care Provider] - Follow up with primary Forms: [employer] (German)
[2018-02-21 18:50] LABS: BASO # 0.03 K/mm3 (0.0-2.0); BASO % 0.3 % (0.0-3.0); EOS # 0.1 (0.0-0.7); EOS % 1.1 % (1.5-5.0); GRAN # 6.1 (1.4-6.5); GRAN % 59.5 % (50.0-68.0); LYMPH # 3.4 (1.2-3.4); LYMPH % 33.1 % (22.0-35.0); MEAN CELL VOLUME 91.7 fl (80.0-105.0); MEAN CORPUSCULAR HGB CONC 32.7 g/dl (31.0-37.0); MONO # 0.6 (0.1-0.6); RBC 4.34 10^6/uL (3.5-6.1); RED CELL DISTRIBUTION WIDTH 14.1 % (11.5-14.5); WHITE BLOOD COUNT 10.3 10^3/uL (4.5-11.0)
[2018-02-21 18:59] LABS: INR 1.04; PARTIAL THROMBOPLASTIN TIME 27.3 Seconds (25.1-36.5); PROTHROMBIN TIME 11.9 SECONDS (9.4-12.5)
[2018-02-21 19:03] LABS: ALB/GLOB RATIO 1.3 (1.1-1.8); ALBUMIN 3.7 g/dL (3.0-4.8); ALT/SGPT 39 U/L (7-56); AMYLASE 81 U/L (35-125); AST/SGOT 30 U/L (14-36); BLOOD UREA NITROGEN 13 mg/dL (7-21); CALCIUM 9.3 mg/dL (8.4-10.5); GFR NON-AFRICAN AMERICAN > 60; LIPASE 43 U/L (23-300)
[2018-02-21] MEDS ORDERED: Potassium Chloride 20 mEq ER Tab PO STA (19:05)
[2018-02-21 19:09] LABS: TROPONIN I < 0.01 ng/mL
[2018-02-21] MEDS ORDERED: Lidocaine 2% Viscous 100 ml PO STA (19:41)
[2018-02-21] MEDS ORDERED: Alum-Mag Hydrox-Simethicone Susp (30 mL) PO STA (19:42)
[2018-02-21] MEDS ORDERED: Atrop/Hyosc/Scopal/PB Elixir (120 ml) PO STA (19:42)
[2018-02-21 22:05] VITALS: BP 170/68; PULSE 78
--- NOTE | 2018-02-21 22:07 | CARD ---
APPROVED REPORT Date of service: 02/21/2018 EKG Measurement Heart [id number] 140P59 [id number] <Conclusion> Normal sinus rhythm Normal ECG
== END 2018-02-21 22:12 | disposition home or self-care (01) ==
LOC: ED 17:17
DX: R10.9 Unspecified abdominal pain (principal); K21.9 Gastro-esophageal reflux disease without esophagitis
CPT/HCPCS: 71045; 80053; 82150; 82550; 83615; 83690; 84484; 85025; 85610; 85730; 87040; 93005; 96374; 99283; J7030

== ENCOUNTER 2018-03-06 09:14 | Emergency (ER) | payer MEDICARE, MEDICAID ==
[2018-03-06 09:14] VITALS: BMI 39.1
--- NOTE | 2018-03-06 09:37 | ED PDOC ---
Arrival/HPI - General Historian: Patient - History of Present Illness Narrative History of Present Illness (Text): 03/06/18 09:37 67 year old female, whose past medical history includes gastritis, small colon tumor (found in endoscopy November 2017), hypertension, hiatal hernia, and GERD, presents to the emergency department complaining of reoccurring abdominal discomfort after eating tuna with oil. Patient states she has been on a strict diet due to her gastritis, but decided to eat something else which triggered her abdominal discomfort. Patient saw her Nurse Practitioner 6 days ago and is taking Carafate and Prevacid with no relief. Patient reports nausea, but denies any fever, chills, chest pain, shortness of breath, vomiting, diarrhea, urinary symptoms, back pain, neck pain, headache, dizziness, or any other complaints. PMD: Dr. Gaviria GI: Dr. Jo Symptom Onset: Gradual Symptom Course: Unchanged Activities at Onset: Eating Context: Home Past Medical History - Provider Review Nursing Documentation Reviewed: Yes - Infectious Disease Hx of Infectious Diseases: None - Tetanus Immunization Tetanus Immunization: Unknown - Cardiac Hx Cardiac Disorders: Yes - Pulmonary Hx Respiratory Disorders: Yes Hx Asthma: Yes Hx Chronic Obstructive Pulmonary Disease (COPD): Yes - Neurological Hx Neurological Disorder: No - HEENT Hx HEENT Disorder: Yes Hx Cataracts: Yes Hx Glaucoma: Yes - Renal Hx Renal Disorder: No - Endocrine/Metabolic Hx Endocrine Disorders: No - Hematological/Oncological Hx Blood Disorders: No - Integumentary Hx Dermatological Disorder: No - Musculoskeletal/Rheumatological Hx Musculoskeletal Disorders: Yes (CERVIAL RADICULOPATHY,TMJ,RIGHT TORN MENISCUS) - Gastrointestinal Hx Gastrointestinal Disorders: Yes (GASTRITIS,CONSTIPATION,HIATAL HERNIA) Hx Diverticulitis: Yes Hx Gastroesophageal Reflux: Yes - Genitourinary/Gynecological Hx Genitourinary Disorders: Yes (MENOPAUSAL-VAGINAL DRYNESS,TUBAL LIGATION) - Psychiatric Hx Psychophysiologic Disorder: No Hx Substance Use: No - Past Surgical History Past Surgical History: No Previous - Surgical History Other/Comment: Colonoscopy. Cataract surgery - Anesthesia Hx Anesthesia Reactions: No Hx Malignant Hyperthermia: No - Suicidal Assessment Feels Threatened In Home Enviroment: No Family/Social History - Physician Review Nursing Documentation Reviewed: Yes Family/Social History: No Known Family HX Smoking Status: Former Smoker Hx Alcohol Use: No Hx Substance Use: No Hx Substance Use Treatment: No Allergies/Home Meds Allergies/Adverse Reactions: Allergies peanut Allergy (Verified 03/06/18 09:29) RASH Penicillins Allergy (Verified 03/06/18 09:29) RASH peanuts Allergy (Uncoded 03/06/18 09:29) ITCHING Home Medications: Home Meds Medication Instructions Recorded Confirmed Budesonide/Formoterol Fumarate 2 puff IH BID 08/27/11 02/21/18 [Symbicort 80-4.5 Mcg Inhaler] Mometasone Furoate [Asmanex Hfa] 2 puff NEB BID 06/28/17 02/21/18 Albuterol HFA [Ventolin HFA 90 1 puff IH QID PRN 11/11/17 02/21/18 mcg/actuation (8 g)] Acetaminophen [Tylenol] 325 mg PO PRN PRN 12/23/17 02/21/18 Linzess 145 mcg PO MWF 12/23/17 02/21/18 Prednisone 10 mg PO DAILY 12/23/17 02/21/18 Review of Systems - Physician Review All systems were reviewed & negative as marked: Yes - Review of Systems Constitutional: absent: Fevers, Other (Chills) Respiratory: absent: SOB Cardiovascular: absent: Chest Pain Gastrointestinal: Abdominal Pain, Nausea. absent: Diarrhea, Vomiting Genitourinary Female: absent: Dysuria, Frequency, Hematuria Musculoskeletal: absent: Back Pain, Neck Pain Neurological: absent: Headache, Dizziness Physical Exam Vital Signs Reviewed: Yes Temperature: Afebrile Blood Pressure: Hypertensive Pulse: Tachycardic Respiratory Rate: Normal Appearance: Positive for: Well-Appearing, Non-Toxic, Comfortable Pain Distress: None Mental Status: Positive for: Alert and Oriented X 3 - Systems Exam Head: Present: Atraumatic, Normocephalic Pupils: Present: PERRL Extroacular Muscles: Present: EOMI Conjunctiva: Present: Normal Mouth: Present: Moist Mucous Membranes Neck: Present: Normal Range of Motion Respiratory/Chest: Present: Clear to Auscultation, Good Air Exchange. No: Respiratory Distress, Accessory Muscle Use Cardiovascular: Present: Regular Rate and Rhythm, Normal S1, S2. No: Murmurs Abdomen: Present: Distention, Other (Slight discomfort to palpation near epigastrium). No: Peritoneal Signs Back: Present: Normal Inspection Upper Extremity: Present: Normal Inspection. No: Cyanosis, Edema Lower Extremity: Present: Normal Inspection. No: Edema Neurological: Present: GCS=15, CN II-XII Intact, Speech Normal Skin: Present: Warm, Dry, Normal Color. No: Rashes Psychiatric: Present: Alert, Oriented x 3, Normal Insight, Normal Concentration Medical Decision Making ED Course and Treatment: 03/06/18 09:37 Impression: 67 year old female presents complaining of abdominal discomfort after eating tuna with oil. Differential Diagnosis included but are not limited to: Gastritis pacreatitis PUD Plan: -- EKG -- Labs -- Elixir, --Maalox Plus, --Pepcid, IV Fludis, --Zofran Inj -- Urinalysis -- Reassess and disposition Prior Visits: Notes and results from previous visits were reviewed. Progress Notes: 03/06/18 11:48 Labs reviewed with no leukocytosis noted. Patient reevaluated and reports improvement in symptoms. She states she will follow up wit her GI specialist and has an appointment on 03/23/18. Scripts provided. She is stable for discharge. - Lab Interpretations I have reviewed the lab results: Yes - EKG Interpretation EKG Interpretation (Text): 03/06/18 09:39 EKG shows NSR at 93 BPM with no t-wave inversions. No QT prolongation. Interpreted by me. Interpreted by ED Physician: Yes Type: 12 lead EKG - Scribe Statement The provider has reviewed the documentation as recorded by the Scribe Deb Peterson Provider Scribe Attestation: All medical record entries made by the Scribe were at my direction and personally dictated by me. I have reviewed the chart and agree that the record accurately reflects my personal performance of the history, physical exam, medical decision making, and the department course for this patient. I have also personally directed, reviewed, and agree with the discharge instructions and disposition. Disposition/Present on Arrival - Present on Arrival Any Indicators Present on Arrival: No History of DVT/PE: No History of Uncontrolled Diabetes: No Urinary Catheter: No History Surgical Site Infection Following: CABG - Mediastinitis, None - Disposition Have Diagnosis and Disposition been Completed?: Yes Diagnosis: Gastritis, UTI (urinary tract infection) Disposition: HOME/ ROUTINE Disposition Time: 11:45 Patient Plan: Discharge Condition: IMPROVED Discharge Instructions (ExitCare): Gastritis (DC), Urinary Tract Infection, Adult (DC) Print Language: SOUTH AFRICAN Additional Instructions: All medical record entries made by the Scribe were at my direction and personally dictated by me. I have reviewed the chart and agree that the record accurately reflects my personal performance of the history, physical exam, medical decision making, and the department course for this patient. I have also personally directed, reviewed, and agree with the discharge instructions and disposition. Please take medication as prescribed Please follow up with your GI specialist Prescriptions: Nitrofurantoin Macrocrystals [Macrobid] 100 mg PO BID 10 Days #5 cap Pantoprazole Sodium [Protonix] 20 mg PO DAILY 10 Days #10 tab Referrals: Felix Jo MD [Staff Provider] - Follow up with primary Forms: [employer] (Kyrgyz)
[2018-03-06] MEDS ORDERED: Sodium Chloride 0.9% 1,000 ML IV STA (09:39)
[2018-03-06] MEDS ORDERED: Alum-Mag Hydrox-Simethicone Susp (30 mL) PO STA (09:42)
[2018-03-06] MEDS ORDERED: Atrop/Hyosc/Scopal/PB Elixir (120 ml) PO STA (09:42)
[2018-03-06 10:07] LABS: URINE APPEARANCE CLEAR (CLEAR); URINE BILIRUBIN SMALL (NEGATIVE); URINE BLOOD TRACE-INTACT (NEGATIVE); URINE COLOR DARK YELLOW (YELLOW); URINE GLUCOSE (UA) NEGATIVE (NEGATIVE); URINE LEUKOCYTE ESTERASE NEGATIVE Leu/uL (NEGATIVE); URINE PROTEIN 30 mg/dL (<30 mg/dL); URINE UROBILINOGEN 0.2 E.U./dL (<1 E.U./dL)
[2018-03-06 10:16] LABS: URINE BACTERIA MANY (NEG); URINE WBC 0 - 2 /hpf (0-6)
[2018-03-06 10:51] LABS: BASO # 0.02 K/mm3 (0.0-2.0); BASO % 0.2 % (0.0-3.0); EOS # 0.2 (0.0-0.7); EOS % 1.8 % (1.5-5.0); GRAN # 4.3 (1.4-6.5); GRAN % 50.6 % (50.0-68.0); HEMOGLOBIN 13.7 g/dL (12.0-16.0); LYMPH # 3.5 (1.2-3.4); LYMPH % 40.8 % (22.0-35.0); MEAN CELL VOLUME 92.3 fl (80.0-105.0); MEAN CORPUSCULAR HGB CONC 32.5 g/dl (31.0-37.0); MEAN PLATELET VOLUME 9.9 fl (7.0-11.0); MONO # 0.6 (0.1-0.6); MONO % 6.6 % (1.0-6.0); RBC 4.57 10^6/uL (3.5-6.1); RED CELL DISTRIBUTION WIDTH 14.1 % (11.5-14.5); WHITE BLOOD COUNT 8.5 10^3/uL (4.5-11.0)
[2018-03-06 11:00] LABS: ALB/GLOB RATIO 1.4 (1.1-1.8); ALT/SGPT 37 U/L (7-56); AST/SGOT 28 U/L (14-36); BLOOD UREA NITROGEN 6 mg/dL (7-21); CALCIUM 9.7 mg/dL (8.4-10.5); GFR NON-AFRICAN AMERICAN > 60; LIPASE 43 U/L (23-300)
[2018-03-06] MEDS ORDERED: Potassium Chloride 40 mEq/30 ml LIQ UD PO STA (11:31)
[2018-03-06 12:25] VITALS: BP 164/90; PULSE 87; RESP 16; TEMP 99.3; O2SAT 97
--- NOTE | 2018-03-06 18:03 | CARD ---
APPROVED REPORT Date of service: 03/06/2018 EKG Measurement Heart [id number] [id number] <Conclusion> Normal sinus rhythm ST abnormality, possible digitalis effect Abnormal ECG
== END 2018-03-06 12:24 | disposition home or self-care (01) ==
LOC: ED 09:14
DX: K29.70 Gastritis, unspecified, without bleeding (principal); N39.0 Urinary tract infection, site not specified
CPT/HCPCS: 80053; 81001; 83690; 83735; 85025; 93005; 96374; 96375; 99282; J2405; J3480; J7030

== ENCOUNTER 2018-04-26 09:15 | Emergency (ER) | payer MEDICARE, MEDICAID ==
[2018-04-26 09:26] VITALS: TEMP 98; BMI 36.6
--- NOTE | 2018-04-26 09:55 | ED PDOC ---
Arrival/HPI - General Chief Complaint: Palpitations Time Seen by Provider: 04/26/18 09:24 Historian: Patient - History of Present Illness Narrative History of Present Illness (Text): 04/26/18 09:52 67 year old female whose past medical history includes gastritis, small colon tumor (found in endoscopy November 2017), hypertension, hiatal hernia, and GERD, presents to the emergency department complaining of intermittent palpitations for the past 2 days. Patients also notes secondary complaint of sorethroat and abdominal pain that radiates up to her chest. She denies fevers, chills, headache, dizziness, shortness of breath, dyspnea on exertion, cough, nausea, vomiting, diarrhea, back pain, neck pain, or any other complaint. Time/Duration: < week Symptom Onset: Gradual Symptom Course: Unchanged Activities at Onset: Light Context: Home Past Medical History - Provider Review Nursing Documentation Reviewed: Yes - Infectious Disease Hx of Infectious Diseases: None - Tetanus Immunization Tetanus Immunization: Unknown - Reproductive Menopause: Yes - Cardiac Hx Hypertension: Yes Other/Comment: leaky valve - Pulmonary Hx Respiratory Disorders: Yes Hx Asthma: Yes Hx Chronic Obstructive Pulmonary Disease (COPD): Yes - Neurological Hx Neurological Disorder: No - HEENT Hx HEENT Disorder: Yes Hx Cataracts: Yes Hx Glaucoma: Yes - Renal Hx Renal Disorder: No - Endocrine/Metabolic Hx Endocrine Disorders: No - Hematological/Oncological Hx Blood Disorders: No - Integumentary Hx Dermatological Disorder: No - Musculoskeletal/Rheumatological Hx Musculoskeletal Disorders: Yes (CERVIAL RADICULOPATHY,TMJ,RIGHT TORN MENISCUS) - Gastrointestinal Hx Gastrointestinal Disorders: Yes (GASTRITIS,CONSTIPATION,HIATAL HERNIA) Hx Diverticulitis: Yes Hx Gastroesophageal Reflux: Yes - Genitourinary/Gynecological Hx Genitourinary Disorders: Yes (MENOPAUSAL-VAGINAL DRYNESS,TUBAL LIGATION) - Psychiatric Hx Psychophysiologic Disorder: No Hx Substance Use: No - Past Surgical History Past Surgical History: No Previous - Surgical History Other/Comment: Colonoscopy. Cataract surgery - Anesthesia Hx Anesthesia: No Hx Anesthesia Reactions: No Hx Malignant Hyperthermia: No - Suicidal Assessment Feels Threatened In Home Enviroment: No Family/Social History - Physician Review Nursing Documentation Reviewed: Yes Family/Social History: No Known Family HX Smoking Status: Former Smoker Hx Alcohol Use: No Hx Substance Use: No Hx Substance Use Treatment: No Allergies/Home Meds Allergies/Adverse Reactions: Allergies peanut Allergy (Verified 03/06/18 09:29) RASH Penicillins Allergy (Verified 03/06/18 09:29) RASH peanuts Allergy (Uncoded 03/06/18 09:29) ITCHING Home Medications: Home Meds Medication Instructions Recorded Confirmed Budesonide/Formoterol Fumarate 2 puff IH BID 08/27/11 04/26/18 [Symbicort 80-4.5 Mcg Inhaler] Mometasone Furoate [Asmanex Hfa] 2 puff NEB BID 06/28/17 04/26/18 Albuterol HFA [Ventolin HFA 90 1 puff IH QID PRN 11/11/17 04/26/18 mcg/actuation (8 g)] Acetaminophen [Tylenol] 325 mg PO PRN PRN 12/23/17 04/26/18 Linzess 145 mcg PO MWF 12/23/17 04/26/18 Review of Systems - Physician Review All systems were reviewed & negative as marked: Yes - Review of Systems Constitutional: absent: Fevers ENT: Sore Throat Respiratory: absent: SOB Cardiovascular: Chest Pain, Palpitations Gastrointestinal: Abdominal Pain. absent: Diarrhea, Nausea, Vomiting Musculoskeletal: absent: Back Pain, Neck Pain Skin: absent: Rash Neurological: absent: Headache, Dizziness Physical Exam - Physical Exam Narrative Physical Exam (Text): 04/26/18 09:52 Gen: VS reviewed, alert, well developed, well nourished, nontoxic, mild distress. ENT: normal pharynx. Eye: EOMI, PERRL. Neck: no JVD, supple, no adenopathy. CV: regular rate, regular rhythm, no rubs, no murmur, no gallops, S1, S2, pulses equal and strong. Pulm: no distress, clear to auscultation, no wheeze, no rhonchi, breath sounds equal, no rales. Abd: soft, nontender, no guarding, no rebound, no rigidity, normal bowel sounds. Ext: no edema. Skin: good color, no rash, no cyanosis. Psych: responds appropriately to questions, normal affect. Neuro: oriented x 3, CN2-12 intact grossly, motor intact, sensation intact. Vital Signs Reviewed: Yes Vital Signs Temp Pulse Resp BP Pulse Ox 04/26/18 09:25 98 F 85 19 154/69 H 99 Temperature: Afebrile Blood Pressure: Hypertensive Pulse: Regular Respiratory Rate: Normal Appearance: Positive for: Well-Appearing, Non-Toxic, Comfortable Pain Distress: None Mental Status: Positive for: Alert and Oriented X 3 Medical Decision Making ED Course and Treatment: 04/26/18 09:53 Impression: 67 year old female who presents to the emergency department complaining of palpitations. Plan: -- EKG -- Labs -- Chest X-ray -- Reassess and disposition Prior Visits: Notes and results from previous visits were reviewed. Progress Notes: 04/26/18 11:39 patient states she still has the sensation of palpitations, cardiac tech shows sinus rhythm at 89 bpm. i have recommended and offered admission to the hospital to the patient. The patient refuses admission and wishes to leave the Emergency Department against my medical advice. Patient was told that admission to the hospital is necessary and a full explanation of the reasons why was given, and understood by patient. The risks of leaving were explained and include worsening of co ndition, and permanent disability and from an undiagnosed or untreated condition. The patient accepts these risks, and is in my judgement is competent and capable of understanding the clinical situation and my explanation of the risks of leaving. Patient was given the opportunity to ask questions and change mind. The patient was instructed regarding the best care for the present symptoms, and to follow up with Dr. Hurt, as soon as possible, or return to the Emergency Department at any time for continuing care. - RAD Interpretation Narrative RAD Interpretations (Text): 04/26/18 10:39 Chest X-ray reviewed by radiologist, shows: IMPRESSION: No active disease. Electric Meter Tester Helper: Radiologist - EKG Interpretation EKG Interpretation (Text): 04/26/18 10:32 0922: nsr at 89 bpm, nml qrs, nml axis, no acute sttw abn Interpreted by ED Physician: Yes - Scribe Statement The provider has reviewed the documentation as recorded by the Sheila Rudd Provider Scribe Attestation: All medical record entries made by the Scribe were at my direction and personally dictated by me. I have reviewed the chart and agree that the record accurately reflects my personal performance of the history, physical exam, medical decision making, and the department course for this patient. I have also personally directed, reviewed, and agree with the discharge instructions and disposition. Disposition/Present on Arrival - Present on Arrival Any Indicators Present on Arrival: No History of DVT/PE: No History of Uncontrolled Diabetes: No Urinary Catheter: No History of Decub. Ulcer: No History Surgical Site Infection Following: CABG - Mediastinitis, None - Disposition Have Diagnosis and Disposition been Completed?: Yes Diagnosis: Palpitations Disposition: AGAINST MEDICAL ADVICE Disposition Time: 11:41 Patient Plan: Discharge Condition: STABLE Discharge Instructions (ExitCare): Palpitations (DC) Additional Instructions: RETURN FOR ANY NEW OR WORSENING SYMPTOMS. FOLLOW UP WITH YOUR SCHOOL BUS DISPATCHER SOON POSSIBLE- CALL TOMORROW TO MAKE A CLOSER FOLLOW UP APPOINTMENT. Referrals: Gera Garnica MD [Staff Provider] - Follow up with primary Forms: [employer] (Luxembourgish)
--- NOTE | 2018-04-26 10:34 | RAD ---
Date of service: 04/26/2018 HISTORY: chest pain COMPARISON: Chest radiograph dated 02/21/2018 FINDINGS: LUNGS: No active pulmonary disease. PLEURA: No significant pleural effusion identified, no pneumothorax apparent. CARDIOVASCULAR: Aortic atherosclerotic calcifications. Cardiomediastinal silhouette stably enlarged OSSEOUS STRUCTURES: Changed. VISUALIZED UPPER ABDOMEN: Normal. OTHER FINDINGS: None. IMPRESSION: No active disease.
[2018-04-26 10:38] LABS: BASO # 0.03 K/mm3 (0.0-2.0); BASO % 0.3 % (0.0-3.0); EOS # 0.2 (0.0-0.7); EOS % 2.1 % (1.5-5.0); GRAN # 5.33 (1.4-6.5); GRAN % 56.1 % (50.0-68.0); HEMOGLOBIN 11.7 g/dL (12.0-16.0); LYMPH # 3.4 (1.2-3.4); LYMPH % 35.4 % (22.0-35.0); MEAN CELL VOLUME 91.8 fl (80.0-105.0); MEAN CORPUSCULAR HEMOGLOBIN 29.2 pg (25.0-35.0); MEAN CORPUSCULAR HGB CONC 31.8 g/dl (31.0-37.0); MEAN PLATELET VOLUME 9.9 fl (7.0-11.0); MONO # 0.6 (0.1-0.6); MONO % 6.1 % (1.0-6.0); RBC 4.01 10^6/uL (3.5-6.1); RED CELL DISTRIBUTION WIDTH 13.9 % (11.5-14.5); WHITE BLOOD COUNT 9.5 10^3/uL (4.5-11.0)
[2018-04-26 10:48] LABS: ALB/GLOB RATIO 1.4 (1.1-1.8); ALBUMIN 3.8 g/dL (3.0-4.8); ALT/SGPT 44 U/L (7-56); AST/SGOT 31 U/L (14-36); BLOOD UREA NITROGEN 11 mg/dL (7-21); CALCIUM 9.1 mg/dL (8.4-10.5); GFR NON-AFRICAN AMERICAN > 60; INR 1.06; PARTIAL THROMBOPLASTIN TIME 30.5 Seconds (25.1-36.5); PROTHROMBIN TIME 12.2 SECONDS (9.4-12.5)
[2018-04-26 11:00] LABS: B-TYPE NATRIURETIC PEPTIDE 23.9 pg/mL (0-450); TROPONIN I < 0.01 ng/mL
[2018-04-26] MEDS ORDERED: Potassium Chloride 20 mEq ER Tab PO STA (11:30)
[2018-04-26 12:29] VITALS: BP 155/76; PULSE 78; RESP 18; O2SAT 98
--- NOTE | 2018-04-26 14:20 | CARD ---
APPROVED REPORT Date of service: 04/26/2018 EKG Measurement Heart [id number] GA [id number] <Conclusion> Normal sinus rhythm Normal ECG
== END 2018-04-26 12:05 | disposition left against medical advice (07) ==
LOC: ED 09:15
DX: R00.2 Palpitations (principal); I10 Essential (primary) hypertension; Z87.891 Personal history of nicotine dependence

== ENCOUNTER 2018-08-09 13:05 | Emergency (ER) | payer MEDICARE, MEDICAID ==
[2018-08-09 13:06] VITALS: BMI 36.6
[2018-08-09 13:21] VITALS: TEMP 98.6
[2018-08-09] MEDS ORDERED: Sodium Chloride 0.9% 1,000 ML IV SCH (13:30)
--- NOTE | 2018-08-09 13:47 | ED PDOC ---
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 Patient reports she took Tylenol for the pain, with minimal relief. Patient denies having any abdominal surgeries. She also denies any nausea, vomiting, dark or bloody stool, constipation, back pain, or any other complaints. Symptom Onset: Gradual Symptom Course: Unchanged Activities at Onset: Light Context: Home Past Medical History - Provider Review Nursing Documentation Reviewed: Yes - Infectious Disease Hx of Infectious Diseases: None - Tetanus Immunization Tetanus Immunization: Unknown - Reproductive Menopause: No - Cardiac Hx Hypertension: Yes Other/Comment: leaky valve - Pulmonary Hx Respiratory Disorders: Yes Hx Asthma: Yes Hx Chronic Obstructive Pulmonary Disease (COPD): Yes - Neurological Hx Neurological Disorder: No - HEENT Hx HEENT Disorder: Yes Hx Cataracts: Yes Hx Glaucoma: Yes - Renal Hx Renal Disorder: No - Endocrine/Metabolic Hx Endocrine Disorders: No - Hematological/Oncological Hx Blood Disorders: No - Integumentary Hx Dermatological Disorder: No - Musculoskeletal/Rheumatological Hx Musculoskeletal Disorders: Yes (CERVIAL RADICULOPATHY,TMJ,RIGHT TORN MENISCUS) - Gastrointestinal Hx Gastrointestinal Disorders: Yes (GASTRITIS,CONSTIPATION,HIATAL HERNIA) Hx Diverticulitis: Yes Hx Gastroesophageal Reflux: Yes - Genitourinary/Gynecological Hx Genitourinary Disorders: Yes (MENOPAUSAL-VAGINAL DRYNESS,TUBAL LIGATION) - Psychiatric Hx Psychophysiologic Disorder: No Hx Substance Use: No - Past Surgical History Past Surgical History: No Previous - Surgical History Other/Comment: Colonoscopy. Cataract surgery - Anesthesia Hx Anesthesia: No Hx Anesthesia Reactions: No Hx Malignant Hyperthermia: No - Suicidal Assessment Feels Threatened In Home Enviroment: No Family/Social History - Physician Review Nursing Documentation Reviewed: Yes Family/Social History: Unknown Family HX Smoking Status: Former Smoker Hx Alcohol Use: No Hx Substance Use: No Hx Substance Use Treatment: No Allergies/Home Meds Allergies/Adverse Reactions: Allergies peanut Allergy (Verified 08/09/18 13:27) RASH Penicillins Allergy (Verified 08/09/18 13:27) RASH peanuts Allergy (Uncoded 03/06/18 09:29) ITCHING Home Medications: Home Meds Medication Instructions Recorded Confirmed Budesonide/Formoterol Fumarate 2 puff IH BID 08/27/11 04/26/18 [Symbicort 80-4.5 Mcg Inhaler] Mometasone Furoate [Asmanex Hfa] 2 puff NEB BID 06/28/17 04/26/18 Albuterol HFA [Ventolin HFA 90 1 puff IH QID PRN 11/11/17 04/26/18 mcg/actuation (8 g)] Acetaminophen [Tylenol] 325 mg PO PRN PRN 12/23/17 04/26/18 Linzess 145 mcg PO MWF 12/23/17 04/26/18 Review of Systems - Physician Review All systems were reviewed & negative as marked: Yes - Review of Systems Constitutional: absent: Fevers Respiratory: absent: SOB, Cough Cardiovascular: absent: Chest Pain Gastrointestinal: Abdominal Pain (upper abdomen). absent: Stool Changes, Constipation, Diarrhea, Nausea, Vomiting, Hematochezia Neurological: absent: Headache, Dizziness Physical Exam - Physical Exam Narrative Physical Exam (Text): 08/09/18 13:45 Gen: VS reviewed, alert, well developed, well nourished, nontoxic, mild distress. ENT: normal pharynx. Eye: EOMI, PERRL. Neck: no JVD, supple, no adenopathy. CV: regular rate, regular rhythm, no rubs, no murmur, no gallops, S1, S2, pulses equal and strong. Pulm: no distress, clear to auscultation, no wheeze, no rhonchi, breath sounds equal, no rales. Abd: soft, + tenderness (mild to moderate upper abdominal tenderness), + guarding, no rebound, no rigidity, normal bowel sounds. Ext: no edema. Skin: good color, no rash, no cyanosis. Psych: responds appropriately to questions, normal affect. Neuro: oriented x 3, CN2-12 intact grossly, motor intact, sensation intact. Vital Signs Reviewed: Yes Vital Signs Temp Pulse Resp BP Pulse Ox 08/09/18 13:17 98.6 F 92 H 18 165/76 H 96 Temperature: Afebrile Blood Pressure: Hypertensive Pulse: Regular Respiratory Rate: Normal Medical Decision Making ED Course and Treatment: 08/09/18 13:43 Impression: 67 year old female presents to the emergency department complaining of epigastric pain. Differential Diagnosis included but are not limited to: Plan: -- CT A&P -- Labs -- IV Fluids -- Toradol -- Reassess and disposition Prior Visits: Notes and results from previous visits were reviewed. Patient was last seen in the emergency department on Progress Notes: 08/09/18 17:54 patient feels well to go home. patient relays that she has not eating the best foods lately and feels that greasy foods would exacerbate her symptoms. being that her current pain is recurrent and her workup is negative i feel the patient is safe for dc. will add sucralfate to medication regimen. patient understands and agreeable to plan and will return immediately for any new or worsening symptoms. - RAD Interpretation Narrative RAD Interpretations (Text): 08/09/18 16:44 CT A&P reviewed by radiologist, shows: No acute abdominal or pelvic abnormality. Left colonic diverticulosis without CT evidence for acute diverticulitis. Radiology Orders: 08/09/18 13:27 ABDOMEN & PELVIS [ABD & PELVIS IV CONTRAST ONLY] [CT] Stat Bottoming Machine Operator: Radiologist - EKG Interpretation EKG Interpretation (Text): 08/09/18 13:47 EKG reviewed, shows: NSR at 89 bpm, nml qrs, nml axis, no acute sttw abn 08/09/18 17:53 Interpreted by ED Physician: Yes - Medication Orders Current Medication Orders: Sodium Chloride (Sodium Chloride 0.9%) 1,000 mls @ 150 mls/hr IV .[id number] JOYCE Discontinued Medications Ketorolac Tromethamine (Toradol) 30 mg IVP STAT STA Stop: 08/09/18 13:27 - Scribe Statement The provider has reviewed the documentation as recorded by the Sheila Parker Provider Scribe Attestation: All medical record entries made by the Scribe were at my direction and personally dictated by me. I have reviewed the chart and agree that the record accurately reflects my personal performance of the history, physical exam, medical decision making, and the department course for this patient. I have also personally directed, reviewed, and agree with the discharge instructions and disposition. Disposition/Present on Arrival - Present on Arrival Any Indicators Present on Arrival: No History of DVT/PE: No History of Uncontrolled Diabetes: No Urinary Catheter: No History of Decub. Ulcer: No History Surgical Site Infection Following: CABG - Mediastinitis, None - Disposition Have Diagnosis and Disposition been Completed?: Yes Diagnosis: Abdominal pain, GERD (gastroesophageal reflux disease) Disposition: HOME/ ROUTINE Disposition Time: 17:57 Patient Plan: Discharge Patient Problems: Current Active Problems Problem Status Onset Abdominal pain Acute Condition: STABLE Discharge Instructions (ExitCare): Acid Reflux (Gastroesophageal Reflux Disease), Adult (DC) Additional Instructions: return for any new or worsening symptoms. follow up with your regular doctor as soon as possible. Prescriptions: Sucralfate [Carafate Oral Susp] 1 gm PO QID #30 udc Forms: [facility] (Bulgarian), WORK NOTE
[2018-08-09 15:04] LABS: BASO # 0.02 K/mm3 (0.0-2.0); BASO % 0.2 % (0.0-3.0); EOS # 0.2 (0.0-0.7); HEMOGLOBIN 11.9 g/dL (12.0-16.0); LYMPH # 3.5 (1.2-3.4); MEAN CELL VOLUME 92.7 fl (80.0-105.0); MEAN CORPUSCULAR HGB CONC 31.3 g/dl (31.0-37.0); MEAN PLATELET VOLUME 10.3 fl (7.0-11.0); MONO # 0.5 (0.1-0.6); MONO % 5.2 % (1.0-6.0); RBC 4.1 10^6/uL (3.5-6.1); RED CELL DISTRIBUTION WIDTH 13.4 % (11.5-14.5); WHITE BLOOD COUNT 9.3 10^3/uL (4.5-11.0)
[2018-08-09 15:14] LABS: ALB/GLOB RATIO 1.2 (1.1-1.8); ALBUMIN 3.7 g/dL (3.0-4.8); ALT/SGPT 29 U/L (7-56); AST/SGOT 25 U/L (14-36); BLOOD UREA NITROGEN 12 mg/dL (7-21); CALCIUM 9.1 mg/dL (8.4-10.5); GFR NON-AFRICAN AMERICAN > 60; LIPASE 40 U/L (23-300)
[2018-08-09 15:16] VITALS: RESP 16
[2018-08-09] MEDS ORDERED: Famotidine 20mg/50ml 20 MG in Premixed IV 50 EA IVPB STA (16:20)
--- NOTE | 2018-08-09 16:42 | CT ---
Date of service: 08/09/2018 PROCEDURE: CT Abdomen and Pelvis with contrast HISTORY: mid upper abdominal pain COMPARISON: 01/31/2018. TECHNIQUE: CT scan of the abdomen and pelvis was performed after administration of intravenous contrast. Oral contrast was not administered. Coronal and sagittal reformatted images were obtained. Contrast dose: Radiation dose: Total exam DLP = 973.13 mGy-cm. This CT exam was performed using one or more of the following dose reduction techniques: Automated exposure control, adjustment of the mA and/or kV according to patient size, and/or use of iterative reconstruction technique. FINDINGS: LOWER THORAX: The visualized lungs are clear. LIVER: Normal in size with homogeneous enhancement. Diffuse fatty liver. No gross lesion or ductal dilatation. GALLBLADDER AND BILE DUCTS: Well distended. No calcified gallstones, wall thickening or pericholecystic fluid. PANCREAS: Normal in size with homogeneous enhancement. No gross lesion or ductal dilatation. SPLEEN: Normal in size and appearance. ADRENALS: No discrete nodule. KIDNEYS AND URETERS: Normal in size with homogeneous enhancement. No hydronephrosis. No solid mass. Stable tiny low-attenuation lesion in the right lower pole, likely tiny cortical cyst. VASCULATURE: No aortic aneurysm. There are no aortic atherosclerotic calcifications or mural plaque present. BOWEL: Evaluation of the bowel is limited in the absence of oral contrast. The small bowel loops are normal in caliber. There is left colonic diverticulosis without CT evidence for acute diverticulitis. No bowel wall thickening or obstruction. APPENDIX: Normal appendix. PERITONEUM: No free fluid. No free air. LYMPH NODES: No enlarged lymph nodes. BLADDER: Well distended and normal in appearance. REPRODUCTIVE: The uterus is anteverted and normal in size. There is intramural calcified fibroid in the anterior wall in the midbody of the uterus. BONES: No acute fracture. There is diffuse bone demineralization and multilevel degenerative changes in the spine. OTHER FINDINGS: None. IMPRESSION: No acute abdominal or pelvic abnormality. Left colonic diverticulosis without CT evidence for acute diverticulitis.
[2018-08-09 18:40] VITALS: BP 135/70; PULSE 82; O2SAT 99
--- NOTE | 2018-08-09 20:28 | CARD ---
APPROVED REPORT Date of service: 08/09/2018 EKG Measurement Heart [id number] ID [id number] <Conclusion> Normal sinus rhythm Normal ECG
== END 2018-08-09 18:23 | disposition home or self-care (01) ==
LOC: ED 13:05
DX: K21.9 Gastro-esophageal reflux disease without esophagitis (principal); I10 Essential (primary) hypertension; Z87.891 Personal history of nicotine dependence
CPT/HCPCS: 74177; 80053; 83690; 85025; 93005; 96374; 99283; J0131; J1885; J7030; Q9967

== ENCOUNTER 2018-09-21 06:27 | Day surgery (SDC) | payer MEDICARE, MEDICAID ==
[2018-09-12 15:33] VITALS: BMI 36.8
[2018-09-21 06:52] VITALS: RESP 18
[2018-09-21] MEDS ORDERED: Etomidate 20 mg/10ml Inj IV ONE (08:04)
[2018-09-21] MEDS ORDERED: Propofol 10 mg/ml Inj (20 ML) ONE (08:04)
[2018-09-21] MEDS ORDERED: Sodium Chloride 0.9% 1,000 ML IV SCH (09:30)
[2018-09-21 09:34] VITALS: TEMP 98.2
[2018-09-21 10:07] VITALS: BP 152/80; PULSE 86; O2SAT 98
== END 2018-09-21 10:41 | disposition home or self-care (01) ==
LOC: ENDO 06:27
PROVIDERS: ATTEND Specialist
DX: K29.50 Unspecified chronic gastritis without bleeding (principal); K44.9 Diaphragmatic hernia without obstruction or gangrene; K21.9 Gastro-esophageal reflux disease without esophagitis; K59.09 Other constipation; Z87.19 Personal history of other diseases of the digestive system
CPT/HCPCS: 43239; 88305; 88342; J2704; J7030; J7040